=== PATIENT | male | born 1975 | race Two or more races ===

== ENCOUNTER 2021-05-05 14:13 | Inpatient (IN) | payer MEDICAID, OTHER ==
[2021-05-05] VITALS (7 sets, daily range): BP systolic 100–119; BP diastolic 39–49
[~2021-05-05] VITALS: Ht 172.7 cm; Wt 93.5 kg
[2021-05-05] MEDS ORDERED: SODIUM CHLORIDE 0.9% 1,000 ML IVB ONE (15:00)
[2021-05-05] MEDS ORDERED: LORazepam 2MG/ML-1ML VIAL ONE (15:18)
[2021-05-05 15:20] LABS: Hematocrit 18.1 % (41.0-53.0); Mean Corpuscular Hemoglobin 20.2 pg (28.0-32.0); Mean Corpuscular Hgb Conc. 26.7 g/dL (32.0-36.0); Mean Corpuscular Volume 75.7 fL (80.0-100.0); Red Blood Cells 2.39 10^6/uL (4.5-5.90); Red Cell Distribution Width 18.3 % (11.8-14.3); White Blood Cell 28.3 10^3/uL (4.4-10.8)
[2021-05-05 15:27] LABS: Potassium 4.3 mmol/L (3.5-5.1)
[2021-05-05] MEDS ORDERED: LORazepam 2MG/ML-1ML VIAL IV ONE (15:30)
[2021-05-05 15:35] LABS: Albumin 1.8 g/dL (3.4-5.0); BUN/Creatinine Ratio 29.6; Bilirubin, Total 0.2 mg/dL (0.2-1.0); Calcium 7.4 mg/dL (8.5-10.1); Magnesium 2.4 mg/dL (1.6-2.6)
[2021-05-05 15:36] LABS: Hemoglobin 4.8 g/dL (13.5-17.5)
[2021-05-05 15:38] LABS: Basophils % (manual) 0 (0.0-2.0); Blast Cells 0; Eosinophils % (manual) 0 (0-7); Metamyelocytes % 0; Myelocytes % 0; Promyelocytes % 0; Reactive Lymphocytes 0
[2021-05-05 15:44] LABS: INR 1.13 (0.9-1.15); Partial Thromboplastin Time 20.5 sec (23.6-33.0)
[2021-05-05] MEDS ORDERED: ETOMIDATE (2MG/ML) 20ML VIAL IV ONE ×2 (15:56→16:15)
[2021-05-05] MEDS ORDERED: SUCCINYLCHOLINE CHLORIDE 20 MG/ML 10ML VIAL IV ONE ×2 (15:57→16:15)
[2021-05-05] MEDS ORDERED: MIDAZOLAM DRIP 50 mg/50mL 50 ML IV ONE (16:10)
[2021-05-05] MEDS ORDERED: PANTOPRAZOLE 40 MG/10 ML VIAL INJ IV ONE (16:15)
[2021-05-05] MEDS ORDERED: OCTREOTIDE ACETATE 100 MCG in SODIUM CHL 0.9% 50 ML IV ONE (16:15)
[2021-05-05] MEDS: MIDAZOLAM DRIP 50 mg/50mL 50 ML IV SCH (16:25)
[2021-05-05] MEDS: PANTOPRAZOLE 40 MG/10 ML VIAL INJ IV SCH ×2 (16:26→21:40)
[2021-05-05] MEDS ORDERED: fentaNYL Drip 2500mCg/250mlNS 250 ML IV ONE (16:32)
[2021-05-05 16:47] LABS: Band Neutrophils % (manual) 7; Lymphocytes % (manual) 23 (10.0-50.0); Monocytes % (manual) 5 (0-12)
[2021-05-05] MEDS: fentaNYL Drip 2500mCg/250mlNS 250 ML IV SCH (16:47)
[2021-05-05] MEDS ORDERED: NOREPINEPHRINE 8 MG/250ML KIT 250 ML IV ONE (17:43)
[2021-05-05] MEDS: NOREPINEPHRINE 8 MG/250ML KIT 250 ML IV SCH (17:45)
[2021-05-05] MEDS ORDERED: NOREPINEPHRINE 8 MG/250ML KIT 250 ML IV SCH (18:00)
[2021-05-05] MEDS ORDERED: DEXTROSE (50%) 50ML SYRG IV PRN (19:45)
[2021-05-05] MEDS ORDERED: MORPHINE SULFATE INJECTION 2 MG/ML SYRG IV PRN (19:45)
[2021-05-05] MEDS ORDERED: NITROGLYCERIN 0.4 MG SL TAB SL PRN (19:45)
[2021-05-05] MEDS ORDERED: D5W/SOD CHLO 0.9% 1,000 ML IV SCH (20:00)
[2021-05-05] MEDS ORDERED: VANCOMYCIN PER PHARMACY 0 MG IV SCH (20:30)
[2021-05-05] MEDS: ACCU-CHEK COMFORT CURVE STRIP VI SCH (20:34)
[2021-05-05] MEDS: InsuLIN REG 1unit/0.01ml Soln (100units/ml) SC SCH (20:34)
[2021-05-05] MEDS ORDERED: VANCOMYCIN 1GM/250ML 250 ML IV ONE (21:00)
[2021-05-05] MEDS: SODIUM BICARB 50ML SYR 150 ML in D5W 5% 1,000 ML IV SCH (21:28)
[2021-05-05] MEDS: PIPERACILLIN-TAZOB 3.375GM 100 ML IV SCH (21:41)
[2021-05-06] VITALS (10 sets, daily range): BP systolic 90–127; BP diastolic 33–56
[2021-05-06] MEDS ORDERED: PIPERACILLIN-TAZOB 3.375GM 100 ML IV SCH
[2021-05-06 02:24] LABS: Amphetamine Screen, Urine POSITIVE (NEGATIVE); Barbiturate Scree,Urine NEGATIVE (NEGATIVE); Benzodiazephine Screen, Urine POSITIVE (NEGATIVE); Cocaine Screen, Urine NEGATIVE (NEGATIVE); Phencyclidine Screen, Urine NEGATIVE (NEGATIVE)
[2021-05-06 02:28] LABS: Urine Bacteria MANY /hpf (None Seen); Urine Blood 3+ /uL (Negative); Urine Hyaline Cast MOD /lpf (0 - 2); Urine Specific Gravity 1.012 (1.001-1.035); Urine Sperm PRESENT /hpf (None Seen); Urine WBC 10 /hpf (0 - 3)
[2021-05-06 02:32] LABS: Cannabinoid Screen, Urine NEGATIVE (NEGATIVE); Opiate Scree,Urine NEGATIVE (NEGATIVE)
[2021-05-06] MEDS: InsuLIN REG 1unit/0.01ml Soln (100units/ml) SC SCH ×6 (04:00→20:00)
[2021-05-06] MEDS: SODIUM BICARB 50ML SYR 150 ML in D5W 5% 1,000 ML IV SCH ×3 (04:16→20:06)
[2021-05-06] MEDS: PIPERACILLIN-TAZOB 3.375GM 100 ML IV SCH ×4 (04:24→22:32)
[2021-05-06] MEDS: ACCU-CHEK COMFORT CURVE STRIP VI SCH ×6 (04:28→20:15)
[2021-05-06 05:59] LABS: Alcohol, Urine < 3.0 mg/dL (0-10); Amphetamine Screen, Urine POSITIVE (NEGATIVE); Barbiturate Scree,Urine NEGATIVE (NEGATIVE); Benzodiazephine Screen, Urine POSITIVE (NEGATIVE); Cannabinoid Screen, Urine NEGATIVE (NEGATIVE); Cocaine Screen, Urine NEGATIVE (NEGATIVE); Opiate Scree,Urine NEGATIVE (NEGATIVE); Phencyclidine Screen, Urine NEGATIVE (NEGATIVE)
[2021-05-06] MEDS ORDERED: LIDOCAINE VISCOUS 2% 15ML UD ONE (08:47)
[2021-05-06] MEDS ORDERED: MIDAZOLAM HCL 5 MG/ML-1ML VIAL ONE (08:47)
[2021-05-06] MEDS ORDERED: diphenhdrAMINE HCL 50 MG/1 ML VL ONE (08:47)
[2021-05-06] MEDS ORDERED: fentaNYL CITRATE 100 MCG/2 ML VL ONE (08:48)
[2021-05-06] MEDS: MIDAZOLAM DRIP 50 mg/50mL 50 ML IV SCH ×3 (09:22→16:11)
[2021-05-06] MEDS: NOREPINEPHRINE 8 MG/250ML KIT 250 ML IV SCH (09:31)
[2021-05-06 10:00] LABS: Basophils # (auto) 0 10 ^3/uL (0-0.2); Basophils % (auto) 0.3 % (0.0-2.0); Eosinophils # (auto) 0.1 10 ^3/uL (0-0.8); Eosinophils % (auto) 0.9 % (0.0-7.0); Hematocrit 25.1 % (41.0-53.0); Lymphocytes % (auto) 12.1 % (10.0-50.0); Mean Corpuscular Hemoglobin 24.2 pg (28.0-32.0); Mean Corpuscular Hgb Conc. 31.9 g/dL (32.0-36.0); Monocytes # (auto) 0.6 10 ^3/uL (0-1.3); Monocytes % (auto) 7.9 % (0.0-12.0); Neutrophils # (auto) 6.2 10 ^3/uL (1.6-8.6); Neutrophils % (auto) 78.8 % (37.0-80.0); Nucleated Red Blood Cells % 0.2 %; Red Blood Cells 3.32 10^6/uL (4.5-5.90); Red Cell Distribution Width 21.5 % (11.8-14.3); White Blood Cell 7.9 10^3/uL (4.4-10.8)
[2021-05-06 10:03] LABS: Mean Corpuscular Volume 75.7 fL (80.0-100.0)
[2021-05-06] MEDS ORDERED: OMEP-260 PO (10:08)
[2021-05-06 10:25] LABS: INR 1.22 (0.9-1.15); Partial Thromboplastin Time 30.3 sec (23.6-33.0)
[2021-05-06] MEDS ORDERED: GOLYTELY 4L KIT PO ONE (11:00)
[2021-05-06] MEDS ORDERED: LIDOCAINE 1% (LOCAL ANESTH.) PF 5ml SDV ID ONE (11:15)
[2021-05-06] MEDS: PANTOPRAZOLE 40 MG/10 ML VIAL INJ IV SCH ×2 (11:22→22:31)
[2021-05-06] MEDS: NOREPINEPHRINE BITARTRATE 16 MG in SODIUM CHL 0.9% 234 ML IV SCH (13:43)
[2021-05-06] MEDS: fentaNYL Drip 2500mCg/250mlNS 250 ML IV SCH (16:14)
[2021-05-06 20:29] LABS: Calcium 6.1 mg/dL (8.5-10.1)
[2021-05-06 20:30] LABS: Alkaline Phosphatase 59 U/L (45-117); BUN/Creatinine Ratio 17.5; GFR African American 14 mL/min; GFR Non-African American 12 mL/min; Glucose 112 mg/dL (74-106)
[2021-05-06 20:31] LABS: Alanine Aminotransferase 197 U/L (16-61); Albumin 1.3 g/dL (3.4-5.0); Aspartate Aminotransferase 223 U/L (15-37); Bilirubin, Total 0.7 mg/dL (0.2-1.0); Total Protein 3.4 g/dL (6.4-8.2)
[2021-05-06 20:32] LABS: Anion Gap 12 (5-15); Carbon Dioxide 24 mmol/L (21-32); Chloride 102 mmol/L (98-107); Potassium 3.8 mmol/L (3.5-5.1); Sodium 138 mmol/L (136-145)
[2021-05-06 20:36] LABS: Blood Urea Nitrogen 99 mg/dL (7-18)
[2021-05-06] MEDS: SODIUM CHLOR 0.9% PF (SALINE LOCK) 10ML VIAL/SYR IV SCH (22:32)
[2021-05-07] VITALS (55 sets, daily range): BP systolic 100–155; BP diastolic 48–81
[2021-05-07] MEDS: ACCU-CHEK COMFORT CURVE STRIP VI SCH ×6 (00:34→20:00)
[2021-05-07] MEDS: InsuLIN REG 1unit/0.01ml Soln (100units/ml) SC SCH ×6 (00:34→20:00)
[2021-05-07] MEDS: SODIUM BICARB 50ML SYR 150 ML in D5W 5% 1,000 ML IV SCH (03:16)
[2021-05-07] MEDS: PIPERACILLIN-TAZOB 3.375GM 100 ML IV SCH (04:00)
[2021-05-07 05:18] LABS: Protein, Urine 48.2 mg/dL (0.0-11.9)
[2021-05-07 05:26] LABS: Creatinine, Urine 31 mg/dL (30.0-125.0); Sodium Urine 54 mmol/L (40-220)
[2021-05-07 06:00] LABS: Urine Amorphous Crystal FEW /hpf (None Seen); Urine Bacteria FEW /hpf (None Seen); Urine Blood 2+ /uL (Negative); Urine Hyaline Cast FEW /lpf (0 - 2); Urine Specific Gravity 1.009 (1.001-1.035); Urine Sperm PRESENT /hpf (None Seen); Urine WBC 15 /hpf (0 - 3)
[2021-05-07 07:07] LABS: Basophils # (auto) 0 10 ^3/uL (0-0.2); Basophils % (auto) 0.6 % (0.0-2.0); Eosinophils # (auto) 0.3 10 ^3/uL (0-0.8); Eosinophils % (auto) 3.7 % (0.0-7.0); Hematocrit 18.4 % (41.0-53.0); Hemoglobin 6.3 g/dL (13.5-17.5); Lymphocytes # (auto) 0.8 10 ^3/uL (0.4-5.4); Mean Corpuscular Hemoglobin 24.5 pg (28.0-32.0); Mean Corpuscular Hgb Conc. 33.9 g/dL (32.0-36.0); Mean Corpuscular Volume 72.2 fL (80.0-100.0); Monocytes # (auto) 0.6 10 ^3/uL (0-1.3); Monocytes % (auto) 8.1 % (0.0-12.0); Neutrophils # (auto) 5.3 10 ^3/uL (1.6-8.6); Neutrophils % (auto) 75.6 % (37.0-80.0); Red Blood Cells 2.55 10^6/uL (4.5-5.90); Red Cell Distribution Width 21.9 % (11.8-14.3); White Blood Cell 7.1 10^3/uL (4.4-10.8)
[2021-05-07 07:14] LABS: Albumin 1.1 g/dL (3.4-5.0); BUN/Creatinine Ratio 15.1; Bilirubin, Total 0.5 mg/dL (0.2-1.0); Total Protein 3.5 g/dL (6.4-8.2)
[2021-05-07 07:36] LABS: Calcium 5.9 mg/dL (8.5-10.1); Potassium 2.9 mmol/L (3.5-5.1)
[2021-05-07 08:35] LABS: Uric Acid 9.4 mg/dL (3.5-7.2)
[2021-05-07] MEDS ORDERED: CALCIUM GLUC 1,000mg/50ml-NS 50 ML IV ONE ×3 (08:45)
[2021-05-07] MEDS ORDERED: SODIUM CHLORIDE 0.9% 1,000 ML IV SCH (09:00)
[2021-05-07] MEDS ORDERED: SODIUM CHL 0.9% 1000 ML BAG XX ONE (09:00)
[2021-05-07] MEDS: POTASSIUM CHL 20MEQ/100ML 100 ML IV SCH ×2 (09:06→10:58)
[2021-05-07] MEDS: CALCIUM ACETATE 667 MG CAP NG SCH ×3 (11:05→21:22)
[2021-05-07] MEDS: PANTOPRAZOLE 40 MG/10 ML VIAL INJ IV SCH ×2 (11:05→21:21)
[2021-05-07] MEDS: D5W/SOD CHLO 0.9% 1,000 ML IV SCH ×2 (11:05→22:39)
[2021-05-07] MEDS: SODIUM CHLOR 0.9% PF (SALINE LOCK) 10ML VIAL/SYR IV SCH ×2 (11:12→21:21)
[2021-05-07 11:19] LABS: Hepatitis C Antibody Negative (Negative)
[2021-05-07] MEDS: fentaNYL Drip 2500mCg/250mlNS 250 ML IV SCH (13:27)
[2021-05-07] MEDS: NOREPINEPHRINE BITARTRATE 16 MG in SODIUM CHL 0.9% 234 ML IV SCH (15:12)
[2021-05-07 15:54] LABS: Basophils # (auto) 0 10 ^3/uL (0-0.2); Eosinophils # (auto) 0.3 10 ^3/uL (0-0.8); Monocytes # (auto) 0.4 10 ^3/uL (0-1.3)
[2021-05-07 15:55] LABS: Basophils % (auto) 0.5 % (0.0-2.0); Eosinophils % (auto) 3.6 % (0.0-7.0); Hematocrit 25.4 % (41.0-53.0); Hemoglobin 8.7 g/dL (13.5-17.5); Lymphocytes # (auto) 0.6 10 ^3/uL (0.4-5.4); Lymphocytes % (auto) 8.8 % (10.0-50.0); Mean Corpuscular Hemoglobin 25.6 pg (28.0-32.0); Mean Corpuscular Hgb Conc. 34.2 g/dL (32.0-36.0); Mean Corpuscular Volume 74.9 fL (80.0-100.0); Neutrophils % (auto) 82.1 % (37.0-80.0); Red Blood Cells 3.39 10^6/uL (4.5-5.90); White Blood Cell 7.3 10^3/uL (4.4-10.8)
[2021-05-07] MEDS: MIDAZOLAM DRIP 50 mg/50mL 50 ML IV SCH ×2 (16:15→20:00)
[2021-05-07 16:18] LABS: % Iron Saturation 7.3 % (20-55)
[2021-05-07 16:19] LABS: BUN/Creatinine Ratio 13.1; Calcium 6.7 mg/dL (8.5-10.1); Potassium 3.6 mmol/L (3.5-5.1)
[2021-05-07] MEDS: PIPERACILLIN-TAZOB 2.25GM 50 ML IV SCH (19:04)
[2021-05-07] MEDS ORDERED: EPOETIN ALFA-EPBX 10,000 UNIT/1ML VIAL SC ONE (21:00)
[2021-05-08] VITALS (95 sets, daily range): BP systolic 97–135; BP diastolic 46–72
[2021-05-08] MEDS: PIPERACILLIN-TAZOB 2.25GM 50 ML IV SCH ×5 (00:29→23:49)
[2021-05-08] MEDS: ACCU-CHEK COMFORT CURVE STRIP VI SCH ×7 (00:29→23:49)
[2021-05-08] MEDS: MIDAZOLAM DRIP 50 mg/50mL 50 ML IV SCH ×4 (01:00→21:05)
[2021-05-08] MEDS: InsuLIN REG 1unit/0.01ml Soln (100units/ml) SC SCH ×7 (04:00→23:49)
[2021-05-08] MEDS: D5W/SOD CHLO 0.9% 1,000 ML IV SCH ×2 (04:45→14:45)
[2021-05-08 04:59] LABS: Basophils # (auto) 0.1 10 ^3/uL (0-0.2); Eosinophils # (auto) 0.4 10 ^3/uL (0-0.8); Hematocrit 23.8 % (41.0-53.0); Hemoglobin 7.6 g/dL (13.5-17.5); Lymphocytes # (auto) 0.8 10 ^3/uL (0.4-5.4); Red Blood Cells 3.09 10^6/uL (4.5-5.90)
[2021-05-08 05:01] LABS: Basophils % (auto) 0.8 % (0.0-2.0); Eosinophils % (auto) 5.4 % (0.0-7.0); Mean Corpuscular Hemoglobin 24.7 pg (28.0-32.0); Mean Corpuscular Hgb Conc. 32.1 g/dL (32.0-36.0); Monocytes # (auto) 0.6 10 ^3/uL (0-1.3); Monocytes % (auto) 8.1 % (0.0-12.0); Neutrophils # (auto) 5.3 10 ^3/uL (1.6-8.6); Neutrophils % (auto) 74.7 % (37.0-80.0); White Blood Cell 7.1 10^3/uL (4.4-10.8)
[2021-05-08 05:03] LABS: Red Cell Distribution Width 21.6 % (11.8-14.3)
[2021-05-08 05:13] LABS: Albumin 1.2 g/dL (3.4-5.0); BUN/Creatinine Ratio 10.3; Calcium 6.6 mg/dL (8.5-10.1); Potassium 3.6 mmol/L (3.5-5.1)
[2021-05-08 05:16] LABS: Bilirubin, Total 0.4 mg/dL (0.2-1.0); Total Protein 4.2 g/dL (6.4-8.2)
[2021-05-08] MEDS ORDERED: CALC500C3 PO (05:58)
[2021-05-08] MEDS: CALCIUM ACETATE 667 MG CAP NG SCH ×3 (06:00→22:12)
[2021-05-08] MEDS: fentaNYL Drip 2500mCg/250mlNS 250 ML IV SCH (06:31)
[2021-05-08] MEDS: PANTOPRAZOLE 40 MG/10 ML VIAL INJ IV SCH ×2 (10:08→21:53)
[2021-05-08] MEDS: SODIUM CHLOR 0.9% PF (SALINE LOCK) 10ML VIAL/SYR IV SCH ×2 (10:08→21:53)
[2021-05-08] MEDS: ALBUMIN 25% 100 ML IV SCH ×2 (12:12→19:57)
[2021-05-08] MEDS: NOREPINEPHRINE BITARTRATE 16 MG in SODIUM CHL 0.9% 234 ML IV SCH (12:45)
[2021-05-09] VITALS (99 sets, daily range): BP systolic 97–159; BP diastolic 48–82
[2021-05-09] MEDS: D5W/SOD CHLO 0.9% 1,000 ML IV SCH ×3 (01:01→21:21)
[2021-05-09] MEDS: ALBUMIN 25% 100 ML IV SCH (02:53)
[2021-05-09] MEDS: InsuLIN REG 1unit/0.01ml Soln (100units/ml) SC SCH ×5 (04:00→20:00)
[2021-05-09] MEDS: ACCU-CHEK COMFORT CURVE STRIP VI SCH ×5 (04:13→21:21)
[2021-05-09 04:39] LABS: Basophils # (auto) 0 10 ^3/uL (0-0.2); Lymphocytes # (auto) 0.6 10 ^3/uL (0.4-5.4); Lymphocytes % (auto) 10.8 % (10.0-50.0); Mean Corpuscular Hgb Conc. 32.1 g/dL (32.0-36.0); Monocytes # (auto) 0.5 10 ^3/uL (0-1.3); White Blood Cell 5.5 10^3/uL (4.4-10.8)
[2021-05-09 04:42] LABS: Basophils % (auto) 0.4 % (0.0-2.0); Eosinophils # (auto) 0.2 10 ^3/uL (0-0.8); Eosinophils % (auto) 4.4 % (0.0-7.0); Hematocrit 20.1 % (41.0-53.0); Mean Corpuscular Hemoglobin 24.6 pg (28.0-32.0); Mean Corpuscular Volume 76.7 fL (80.0-100.0); Monocytes % (auto) 8.8 % (0.0-12.0); Neutrophils # (auto) 4.2 10 ^3/uL (1.6-8.6); Neutrophils % (auto) 75.6 % (37.0-80.0); Red Blood Cells 2.63 10^6/uL (4.5-5.90)
[2021-05-09 04:59] LABS: Red Cell Distribution Width 21.1 % (11.8-14.3)
[2021-05-09 05:00] LABS: Hemoglobin 6.5 g/dL (13.5-17.5)
[2021-05-09] MEDS: fentaNYL Drip 2500mCg/250mlNS 250 ML IV SCH (05:01)
[2021-05-09 05:21] LABS: Potassium 3.5 mmol/L (3.5-5.1)
[2021-05-09 05:27] LABS: BUN/Creatinine Ratio 8.9; Calcium 7.1 mg/dL (8.5-10.1); Magnesium 2.1 mg/dL (1.6-2.6)
[2021-05-09] MEDS: PIPERACILLIN-TAZOB 2.25GM 50 ML IV SCH ×3 (05:37→18:13)
[2021-05-09] MEDS: CALCIUM ACETATE 667 MG CAP NG SCH ×3 (05:55→22:14)
[2021-05-09] MEDS: SODIUM CHLOR 0.9% PF (SALINE LOCK) 10ML VIAL/SYR IV SCH ×2 (07:57→22:02)
[2021-05-09] MEDS: PANTOPRAZOLE 40 MG/10 ML VIAL INJ IV SCH ×2 (09:34→22:02)
[2021-05-09] MEDS: NOREPINEPHRINE BITARTRATE 16 MG in SODIUM CHL 0.9% 234 ML IV SCH (11:17)
[2021-05-09] MEDS ORDERED: FUROSEMIDE 40 MG/4 ML VIAL IV ONE (20:00)
[2021-05-09 22:27] LABS: Hemoglobin 8.8 g/dL (13.5-17.5)
[2021-05-09 22:28] LABS: Basophils # (auto) 0 10 ^3/uL (0-0.2); Basophils % (auto) 0.5 % (0.0-2.0); Eosinophils # (auto) 0.2 10 ^3/uL (0-0.8); Eosinophils % (auto) 3.6 % (0.0-7.0); Hematocrit 27.5 % (41.0-53.0); Lymphocytes # (auto) 0.7 10 ^3/uL (0.4-5.4); Lymphocytes % (auto) 10.7 % (10.0-50.0); Mean Corpuscular Hemoglobin 25.1 pg (28.0-32.0); Mean Corpuscular Hgb Conc. 31.9 g/dL (32.0-36.0); Mean Corpuscular Volume 78.5 fL (80.0-100.0); Monocytes # (auto) 0.7 10 ^3/uL (0-1.3); Monocytes % (auto) 10.7 % (0.0-12.0); Neutrophils # (auto) 4.6 10 ^3/uL (1.6-8.6); Neutrophils % (auto) 74.5 % (37.0-80.0); Red Blood Cells 3.51 10^6/uL (4.5-5.90); White Blood Cell 6.2 10^3/uL (4.4-10.8)
[2021-05-09 22:32] LABS: Red Cell Distribution Width 20.5 % (11.8-14.3)
[2021-05-10] VITALS (98 sets, daily range): BP systolic 85–165; BP diastolic 44–88
[2021-05-10] MEDS: ACCU-CHEK COMFORT CURVE STRIP VI SCH ×5 (00:42→16:00)
[2021-05-10] MEDS: PIPERACILLIN-TAZOB 2.25GM 50 ML IV SCH ×4 (00:42→17:07)
[2021-05-10] MEDS: InsuLIN REG 1unit/0.01ml Soln (100units/ml) SC SCH ×5 (04:00→16:00)
[2021-05-10 04:52] LABS: Basophils # (auto) 0 10 ^3/uL (0-0.2); Eosinophils # (auto) 0.2 10 ^3/uL (0-0.8); Lymphocytes # (auto) 0.8 10 ^3/uL (0.4-5.4); Mean Corpuscular Volume 78.6 fL (80.0-100.0); Monocytes # (auto) 0.7 10 ^3/uL (0-1.3)
[2021-05-10 04:54] LABS: Basophils % (auto) 0.5 % (0.0-2.0); Eosinophils % (auto) 3.4 % (0.0-7.0); Hematocrit 26.7 % (41.0-53.0); Hemoglobin 8.8 g/dL (13.5-17.5); Lymphocytes % (auto) 12.2 % (10.0-50.0); Mean Corpuscular Hemoglobin 25.9 pg (28.0-32.0); Mean Corpuscular Hgb Conc. 32.9 g/dL (32.0-36.0); Monocytes % (auto) 10.7 % (0.0-12.0); Neutrophils # (auto) 4.7 10 ^3/uL (1.6-8.6); Neutrophils % (auto) 73.2 % (37.0-80.0); Red Blood Cells 3.39 10^6/uL (4.5-5.90); White Blood Cell 6.4 10^3/uL (4.4-10.8)
[2021-05-10 05:00] LABS: Red Cell Distribution Width 20.1 % (11.8-14.3)
[2021-05-10 05:08] LABS: Calcium 7.5 mg/dL (8.5-10.1); Potassium 3.5 mmol/L (3.5-5.1)
[2021-05-10 05:16] LABS: BUN/Creatinine Ratio 7.8
[2021-05-10] MEDS: CALCIUM ACETATE 667 MG CAP NG SCH ×3 (06:07→23:33)
[2021-05-10] MEDS: D5W/SOD CHLO 0.9% 1,000 ML IV SCH ×2 (06:45→17:04)
[2021-05-10] MEDS: PANTOPRAZOLE 40 MG/10 ML VIAL INJ IV SCH ×2 (08:11→21:34)
[2021-05-10] MEDS: SODIUM CHLOR 0.9% PF (SALINE LOCK) 10ML VIAL/SYR IV SCH ×2 (08:11→21:36)
[2021-05-10] MEDS: NOREPINEPHRINE BITARTRATE 16 MG in SODIUM CHL 0.9% 234 ML IV SCH (08:11)
[2021-05-10] MEDS ORDERED: ALBUMIN 25% 100 ML IV ONE (10:30)
[2021-05-10] MEDS: fentaNYL Drip 2500mCg/250mlNS 250 ML IV SCH ×2 (15:00→16:32)
[2021-05-10] MEDS: MIDAZOLAM DRIP 50 mg/50mL 50 ML IV SCH (15:00)
[2021-05-10] MEDS: PROPOFOL 100 ML IV SCH ×2 (16:27→20:02)
[2021-05-10] MEDS ORDERED: EPOETIN ALFA-EPBX 10,000 UNIT/1ML VIAL SC ONE (21:00)
[2021-05-11] VITALS (86 sets, daily range): BP systolic 90–174; BP diastolic 46–94
[2021-05-11] MEDS: PIPERACILLIN-TAZOB 2.25GM 50 ML IV SCH ×3 (00:46→17:14)
[2021-05-11] MEDS: PROPOFOL 100 ML IV SCH ×2 (03:21→08:46)
[2021-05-11 05:28] LABS: Eosinophils # (auto) 0.3 10 ^3/uL (0-0.8); Hemoglobin 8.7 g/dL (13.5-17.5); Mean Corpuscular Hgb Conc. 33.1 g/dL (32.0-36.0); Monocytes # (auto) 0.7 10 ^3/uL (0-1.3); Neutrophils # (auto) 4.5 10 ^3/uL (1.6-8.6)
[2021-05-11 05:29] LABS: Basophils # (auto) 0 10 ^3/uL (0-0.2); Basophils % (auto) 0.6 % (0.0-2.0); Eosinophils % (auto) 4.8 % (0.0-7.0); Hematocrit 26.3 % (41.0-53.0); Lymphocytes # (auto) 0.9 10 ^3/uL (0.4-5.4); Lymphocytes % (auto) 13.7 % (10.0-50.0); Mean Corpuscular Hemoglobin 25.8 pg (28.0-32.0); Mean Corpuscular Volume 78.1 fL (80.0-100.0); Monocytes % (auto) 11.6 % (0.0-12.0); Neutrophils % (auto) 69.3 % (37.0-80.0); Nucleated Red Blood Cells % 0.1 %; Red Blood Cells 3.37 10^6/uL (4.5-5.90); White Blood Cell 6.4 10^3/uL (4.4-10.8)
[2021-05-11 05:42] LABS: INR 1.03 (0.9-1.15); Partial Thromboplastin Time 25.6 sec (23.6-33.0)
[2021-05-11 05:45] LABS: BUN/Creatinine Ratio 6.1; Calcium 7.7 mg/dL (8.5-10.1); Potassium 3.5 mmol/L (3.5-5.1)
[2021-05-11] MEDS: CALCIUM ACETATE 667 MG CAP NG SCH ×3 (05:54→22:00)
[2021-05-11 06:11] LABS: Red Cell Distribution Width 20.4 % (11.8-14.3)
[2021-05-11] MEDS: D5W/SOD CHLO 0.9% 1,000 ML IV SCH ×2 (06:58→12:45)
[2021-05-11] MEDS: NOREPINEPHRINE BITARTRATE 16 MG in SODIUM CHL 0.9% 234 ML IV SCH (08:44)
[2021-05-11] MEDS: PANTOPRAZOLE 40 MG/10 ML VIAL INJ IV SCH ×2 (09:53→22:08)
[2021-05-11] MEDS: SODIUM CHLOR 0.9% PF (SALINE LOCK) 10ML VIAL/SYR IV SCH ×2 (09:54→22:09)
[2021-05-11] MEDS: fentaNYL Drip 2500mCg/250mlNS 250 ML IV SCH (12:31)
[2021-05-11] MEDS ORDERED: FUROSEMIDE 20 MG/2 ML VIAL ONE (14:58)
[2021-05-11] MEDS ORDERED: FUROSEMIDE 100 MG/10ML VIAL IV ONE ×2 (15:00→19:30)
[2021-05-11] MEDS: POTASSIUM CHL 20MEQ/100ML 100 ML IV SCH ×2 (15:24→19:42)
[2021-05-12] VITALS (24 sets, daily range): BP systolic 108–138; BP diastolic 72–96
[2021-05-12] MEDS: D5W/SOD CHLO 0.9% 1,000 ML IV SCH ×2 (00:01→12:06)
[2021-05-12] MEDS: PIPERACILLIN-TAZOB 2.25GM 50 ML IV SCH ×3 (00:02→17:00)
[2021-05-12] MEDS: CALCIUM ACETATE 667 MG CAP NG SCH (05:08)
[2021-05-12 06:08] LABS: Potassium 3.3 mmol/L (3.5-5.1)
[2021-05-12] MEDS ORDERED: SODIUM CHL 0.9% 1000 ML BAG XX ONE (07:00)
[2021-05-12 09:25] LABS: Hematocrit 33.3 % (41.0-53.0); Hemoglobin 10.6 g/dL (13.5-17.5)
[2021-05-12] MEDS: PANTOPRAZOLE 40 MG/10 ML VIAL INJ IV SCH ×2 (10:00→21:14)
[2021-05-12] MEDS: SODIUM CHLOR 0.9% PF (SALINE LOCK) 10ML VIAL/SYR IV SCH ×2 (10:00→21:13)
[2021-05-12] MEDS: POTASSIUM CHL 20MEQ/100ML 100 ML IV SCH ×3 (10:30→14:30)
[2021-05-12] MEDS ORDERED: FUROSEMIDE 100 MG/10ML VIAL IV ONE (11:00)
[2021-05-12] MEDS: SUCRALFATE 1 GM/10 ML ORAL SUSP PO SCH ×3 (11:30→21:13)
[2021-05-12] MEDS: CALCIUM ACETATE 667 MG CAP PO SCH ×2 (12:00→18:00)
[2021-05-12] MEDS: NOREPINEPHRINE BITARTRATE 16 MG in SODIUM CHL 0.9% 234 ML IV SCH (12:45)
[2021-05-12] MEDS: PROPOFOL 100 ML IV SCH (16:15)
[2021-05-12] MEDS: fentaNYL Drip 2500mCg/250mlNS 250 ML IV SCH (16:30)
[2021-05-12] MEDS ORDERED: EPOETIN ALFA-EPBX 10,000 UNIT/1ML VIAL SC ONE (21:00)
[2021-05-13] MEDS: PIPERACILLIN-TAZOB 2.25GM 50 ML IV SCH ×3 (00:30→18:45)
[2021-05-13] MEDS: D5W/SOD CHLO 0.9% 1,000 ML IV SCH ×2 (03:10→19:50)
[2021-05-13 05:03] VITALS: BP 155/89
[2021-05-13] MEDS: SUCRALFATE 1 GM/10 ML ORAL SUSP PO SCH ×4 (06:26→22:05)
[2021-05-13 07:11] LABS: Basophils # (auto) 0.1 10 ^3/uL (0-0.2); Basophils % (auto) 0.7 % (0.0-2.0); Eosinophils # (auto) 0.4 10 ^3/uL (0-0.8); Eosinophils % (auto) 4.7 % (0.0-7.0); Hemoglobin 10.6 g/dL (13.5-17.5); Lymphocytes # (auto) 1.3 10 ^3/uL (0.4-5.4); Mean Corpuscular Hgb Conc. 32.1 g/dL (32.0-36.0); Mean Corpuscular Volume 77.9 fL (80.0-100.0); Monocytes # (auto) 0.6 10 ^3/uL (0-1.3); Monocytes % (auto) 6.9 % (0.0-12.0); Neutrophils # (auto) 6.3 10 ^3/uL (1.6-8.6); Neutrophils % (auto) 72.7 % (37.0-80.0); Red Blood Cells 4.23 10^6/uL (4.5-5.90); Red Cell Distribution Width 20.2 % (11.8-14.3); White Blood Cell 8.7 10^3/uL (4.4-10.8)
[2021-05-13 07:33] LABS: Potassium 3.5 mmol/L (3.5-5.1)
[2021-05-13 07:37] LABS: Albumin 2.2 g/dL (3.4-5.0); BUN/Creatinine Ratio 6.8; Bilirubin, Total 0.3 mg/dL (0.2-1.0); Calcium 7.8 mg/dL (8.5-10.1); Phosphorus 4.1 mg/dL (2.5-4.90); Total Protein 5.4 g/dL (6.4-8.2); Uric Acid 5.8 mg/dL (3.5-7.2)
[2021-05-13 08:45] VITALS: BP 121/77
[2021-05-13] MEDS: CALCIUM ACETATE 667 MG CAP PO SCH ×3 (09:08→18:45)
[2021-05-13] MEDS: PANTOPRAZOLE 40 MG/10 ML VIAL INJ IV SCH ×2 (09:08→22:05)
[2021-05-13] MEDS: SODIUM CHLOR 0.9% PF (SALINE LOCK) 10ML VIAL/SYR IV SCH ×2 (09:14→22:48)
[2021-05-13] MEDS: POTASSIUM CHL 20MEQ/100ML 100 ML IV SCH ×2 (12:03→15:10)
[2021-05-13 12:16] LABS: Potassium 3.6 mmol/L (3.5-5.1)
[2021-05-13 12:29] LABS: BUN/Creatinine Ratio 6.8; Calcium 7.8 mg/dL (8.5-10.1)
[2021-05-13 13:28] VITALS: BP 123/76
[2021-05-13 17:25] VITALS: BP 134/95
[2021-05-13 22:00] VITALS: BP 119/84
[2021-05-14] MEDS: PIPERACILLIN-TAZOB 2.25GM 50 ML IV SCH ×2 (01:34→08:47)
[2021-05-14 05:00] VITALS: BP 117/71
[2021-05-14 05:36] LABS: Basophils # (auto) 0.1 10 ^3/uL (0-0.2); Hemoglobin 10.3 g/dL (13.5-17.5); Monocytes # (auto) 0.7 10 ^3/uL (0-1.3)
[2021-05-14 05:38] LABS: Basophils % (auto) 1.1 % (0.0-2.0); Eosinophils # (auto) 0.4 10 ^3/uL (0-0.8); Eosinophils % (auto) 4.5 % (0.0-7.0); Hematocrit 31.7 % (41.0-53.0); Lymphocytes # (auto) 1.5 10 ^3/uL (0.4-5.4); Mean Corpuscular Hemoglobin 25.2 pg (28.0-32.0); Mean Corpuscular Hgb Conc. 32.6 g/dL (32.0-36.0); Mean Corpuscular Volume 77.4 fL (80.0-100.0); Monocytes % (auto) 8.6 % (0.0-12.0); Neutrophils # (auto) 5.7 10 ^3/uL (1.6-8.6); Neutrophils % (auto) 67.8 % (37.0-80.0); Nucleated Red Blood Cells % 0.1 %; Red Blood Cells 4.09 10^6/uL (4.5-5.90); White Blood Cell 8.4 10^3/uL (4.4-10.8)
[2021-05-14 05:58] LABS: Calcium 7.9 mg/dL (8.5-10.1); Potassium 3.8 mmol/L (3.5-5.1)
[2021-05-14 06:00] LABS: BUN/Creatinine Ratio 7.5
[2021-05-14] MEDS: SUCRALFATE 1 GM/10 ML ORAL SUSP PO SCH ×2 (06:32→11:25)
[2021-05-14] MEDS: D5W/SOD CHLO 0.9% 1,000 ML IV SCH (06:57)
[2021-05-14 08:30] VITALS: BP 122/71
[2021-05-14] MEDS: CALCIUM ACETATE 667 MG CAP PO SCH ×2 (08:45→11:25)
[2021-05-14] MEDS: PANTOPRAZOLE 40 MG/10 ML VIAL INJ IV SCH (08:47)
[2021-05-14] MEDS: SODIUM CHLOR 0.9% PF (SALINE LOCK) 10ML VIAL/SYR IV SCH (08:48)
[2021-05-14 13:14] VITALS: BP 163/100
[2021-05-14] MEDS ORDERED: SUCR1SUS10 PO (16:19)
[2021-05-14] MEDS ORDERED: AMOX500T86 PO (16:19)
[2021-05-14] MEDS ORDERED: PANT40TA2 PO (16:19)
== END 2021-05-14 17:40 | disposition home health service (06) | DRG 720 ==
LOC: EDBD 14:13 → ER 14:13 → TELE 19:41 → ICU WEST 05-07 12:40 → TELE-CENTR 05-12 20:38
PROVIDERS: ADMIT Hospitalist; ATTEND Hospitalist
PROC: 5A1955Z Respiratory Ventilation, Greater than 96 Consecutive Hours (ICD-10-PCS; principal; 2021-05-05)
PROC: 0BH17EZ Insertion of Endotracheal Airway into Trachea, Via Natural or Artificial Opening (ICD-10-PCS; 2021-05-05)
PROC: 30233N1 Transfusion of Nonautologous Red Blood Cells into Peripheral Vein, Percutaneous Approach (ICD-10-PCS; 2021-05-05)
PROC: 0D9670Z Drainage of Stomach with Drainage Device, Via Natural or Artificial Opening (ICD-10-PCS; 2021-05-06)
PROC: 0DJ08ZZ Inspection of Upper Intestinal Tract, Via Natural or Artificial Opening Endoscopic (ICD-10-PCS; 2021-05-06)
PROC: 02HV33Z Insertion of Infusion Device into Superior Vena Cava, Percutaneous Approach (ICD-10-PCS; 2021-05-07)
PROC: B548ZZA Ultrasonography of Superior Vena Cava, Guidance (ICD-10-PCS; 2021-05-07)
PROC: 5A1D70Z Performance of Urinary Filtration, Intermittent, Less than 6 Hours Per Day (ICD-10-PCS; 2021-05-07)
PROC: 5A1D70Z Performance of Urinary Filtration, Intermittent, Less than 6 Hours Per Day (ICD-10-PCS; 2021-05-10)
PROC: 0DJ08ZZ Inspection of Upper Intestinal Tract, Via Natural or Artificial Opening Endoscopic (ICD-10-PCS; 2021-05-11)
DX: A41.9 Sepsis, unspecified organism (principal); J96.00 Acute respiratory failure, unspecified whether with hypoxia or hypercapnia; N17.0 Acute kidney failure with tubular necrosis; R65.21 Severe sepsis with septic shock; K29.71 Gastritis, unspecified, with bleeding; G93.41 Metabolic encephalopathy; D62 Acute posthemorrhagic anemia; E83.39 Other disorders of phosphorus metabolism; N39.0 Urinary tract infection, site not specified; E83.51 Hypocalcemia; E88.09 Other disorders of plasma-protein metabolism, not elsewhere classified; R73.9 Hyperglycemia, unspecified; T43.621A Poisoning by amphetamines, accidental (unintentional), initial encounter; E66.9 Obesity, unspecified; E87.6 Hypokalemia; K20.91 Esophagitis, unspecified with bleeding; F15.10 Other stimulant abuse, uncomplicated; J98.11 Atelectasis; Z68.33 Body mass index [BMI] 33.0-33.9, adult; Z91.018 Allergy to other foods; Y92.89 Other specified places as the place of occurrence of the external cause
CPT/HCPCS: 31500; 36415; 36569; 36600; 43235; 70450; 71045; 72125; 74176; 76775; 80048; 80053; 80202; 80307; 80320; 81001; 82140; 82306; 82550; 82570; 82728; 82805; 82962; 83036; 83540; 83550; 83605; 83735; 83880; 83970; 84100; 84156; 84300; 84484; 84550; 85007; 85014; 85018; 85025; 85027; 85610; 85730; 86803; 86850; 86900; 86901; 86920; 87070; 87077; 87081; 87205; 87340; 87426; 90935; 93005; 93306; 94002; 94003; 96361; 96374; 97116; 97163; 97530; 99291; C9113; G0378; J0330; J1642; J2250; J2543; J2704; J3480; J7042; J7060; P9047

== ENCOUNTER 2021-10-11 17:32 | Inpatient (IN) | payer MEDICAID ==
[~2021-10-11] VITALS: Ht 170.2 cm; Wt 87.8 kg
[~2021-10-11 17:32] MED LIST: AMOX500T86 PO; CALC500C3 PO; PANT40TA2 PO; SUCR1SUS10 PO
[2021-10-11] MEDS ORDERED: SODIUM CHLORIDE 0.9% 1,000 ML IV ONE ×2 (18:00)
[2021-10-11] MEDS ORDERED: cefTRIAXone 1GM/50ML D5W 50 ML IV ONE (18:00)
[2021-10-11 18:39] LABS: Basophils # (auto) 0.1 10 ^3/uL (0-0.2); Hematocrit 19.2 % (41.0-53.0); Lymphocytes # (auto) 1.4 10 ^3/uL (0.4-5.4); Mean Corpuscular Volume 62.7 fL (80.0-100.0); Monocytes # (auto) 0.7 10 ^3/uL (0-1.3); Nucleated Red Blood Cells % 0.2 %; Red Blood Cells 3.06 10^6/uL (4.5-5.90)
[2021-10-11 18:40] LABS: Basophils % (auto) 0.7 % (0.0-2.0); Eosinophils # (auto) 0.1 10 ^3/uL (0-0.8); Eosinophils % (auto) 0.9 % (0.0-7.0); Lymphocytes % (auto) 15.1 % (10.0-50.0); Mean Corpuscular Hemoglobin 17.9 pg (28.0-32.0); Mean Corpuscular Hgb Conc. 28.6 g/dL (32.0-36.0); Monocytes % (auto) 7.9 % (0.0-12.0); Neutrophils # (auto) 6.8 10 ^3/uL (1.6-8.6); Neutrophils % (auto) 75.4 % (37.0-80.0); Red Cell Distribution Width 18.3 % (11.8-14.3)
[2021-10-11 18:53] LABS: Albumin 2.7 g/dL (3.4-5.0); Calcium 8.1 mg/dL (8.5-10.1); Hemoglobin 5.5 g/dL (13.5-17.5); Potassium 3.2 mmol/L (3.5-5.1)
[2021-10-11 18:55] LABS: BUN/Creatinine Ratio 19.1
[2021-10-11 18:56] LABS: INR 0.99 (0.9-1.15); Lactic Acid w/Reflex 2.9 mmol/L (0.4-2.0); Partial Thromboplastin Time 21.9 sec (23.6-33.0)
[2021-10-11 18:58] LABS: Bilirubin, Total 0.3 mg/dL (0.2-1.0)
[2021-10-11] MEDS ORDERED: MORPHINE SULFATE 4 MG/ML SYR/VIAL IV ONE (21:15)
[2021-10-11] MEDS ORDERED: HYDROcodone-ACET 5/325MG TAB PO PRN (21:45)
[2021-10-11] MEDS ORDERED: ACETAMINOPHEN 325 MG TAB PO PRN (21:45)
[2021-10-11] MEDS ORDERED: POTASSIUM CHL 20MEQ/100ML 100 ML IV ONE (21:45)
[2021-10-11] MEDS ORDERED: hydrALAZINE HCL 10 MG TAB PO PRN (21:45)
[2021-10-11] MEDS ORDERED: ONDANSETRON HCL 4 MG/2 ML VIAL IV PRN (22:00)
[2021-10-11] MEDS ORDERED: MORPHINE SULFATE INJECTION 2 MG/ML SYRG IV PRN (22:00)
[2021-10-11] MEDS: FAMOTIDINE 20 MG TAB PO SCH (22:21)
[2021-10-11] MEDS ORDERED: levoFLOXacin 500MG 100 ML IV SCH (22:30)
[2021-10-12] VITALS (14 sets, daily range): BP systolic 95–132; BP diastolic 49–104
[2021-10-12] MEDS ORDERED: SUCR1TAB PO (01:44)
[2021-10-12] MEDS ORDERED: levoFLOXacin 500MG 100 ML IV SCH (03:00)
[2021-10-12 07:35] LABS: Basophils # (auto) 0.1 10 ^3/uL (0-0.2); Eosinophils # (auto) 0.1 10 ^3/uL (0-0.8); Monocytes # (auto) 0.6 10 ^3/uL (0-1.3); Neutrophils # (auto) 5.1 10 ^3/uL (1.6-8.6)
[2021-10-12 07:38] LABS: Eosinophils % (auto) 1.4 % (0.0-7.0); Hematocrit 20.7 % (41.0-53.0); Lymphocytes # (auto) 1.3 10 ^3/uL (0.4-5.4); Lymphocytes % (auto) 18.6 % (10.0-50.0); Mean Corpuscular Hemoglobin 20.8 pg (28.0-32.0); Mean Corpuscular Hgb Conc. 31.1 g/dL (32.0-36.0); Monocytes % (auto) 7.7 % (0.0-12.0); Neutrophils % (auto) 71.3 % (37.0-80.0); Nucleated Red Blood Cells % 0.2 %; Red Cell Distribution Width 22.7 % (11.8-14.3); White Blood Cell 7.2 10^3/uL (4.4-10.8)
[2021-10-12 07:42] LABS: Hemoglobin 6.5 g/dL (13.5-17.5); Mean Corpuscular Volume 66.9 fL (80.0-100.0)
[2021-10-12 07:54] LABS: Albumin 2.5 g/dL (3.4-5.0); Calcium 7.6 mg/dL (8.5-10.1); Potassium 3.7 mmol/L (3.5-5.1)
[2021-10-12 07:59] LABS: BUN/Creatinine Ratio 21.5; Bilirubin, Total 1.1 mg/dL (0.2-1.0); Total Protein 5.4 g/dL (6.4-8.2)
[2021-10-12 08:43] LABS: Hematocrit 20.6 % (41.0-53.0)
[2021-10-12 08:49] LABS: Hemoglobin 6.7 g/dL (13.5-17.5)
[2021-10-12] MEDS ORDERED: PNEUMOCOCCAL VACC POLYS 25 MCG/0.5 ML VIAL IM ONE (10:00)
[2021-10-12] MEDS ORDERED: INFLUENZA QUAD 2021-2022 0.5 ML SYRG IM ONE (10:00)
[2021-10-12] MEDS: FAMOTIDINE 20 MG TAB PO SCH (10:20)
[2021-10-12 12:16] LABS: Hematocrit 20.5 % (41.0-53.0)
[2021-10-12 12:27] LABS: Hemoglobin 6.2 g/dL (13.5-17.5)
[2021-10-12 15:54] LABS: Hemoglobin 7.2 g/dL (13.5-17.5)
[2021-10-12 18:44] LABS: Hematocrit 24.8 % (41.0-53.0)
[2021-10-12 18:48] LABS: Hemoglobin 7.7 g/dL (13.5-17.5)
== END 2021-10-12 18:20 | disposition left against medical advice (07) | DRG 241 ==
LOC: ER 17:32 → TELE 21:40 → TELE-WESTW 23:47
PROVIDERS: ADMIT Nurse Practitioner Family; ATTEND Nurse Practitioner Family
PROC: 30233N1 Transfusion of Nonautologous Red Blood Cells into Peripheral Vein, Percutaneous Approach (ICD-10-PCS; principal; 2021-10-12)
DX: K27.9 Peptic ulcer, site unspecified, unspecified as acute or chronic, without hemorrhage or perforation (principal); N17.0 Acute kidney failure with tubular necrosis; D62 Acute posthemorrhagic anemia; E87.6 Hypokalemia; J45.909 Unspecified asthma, uncomplicated; M54.50 Low back pain, unspecified; Z20.822 Contact with and (suspected) exposure to COVID-19; Z53.21 Procedure and treatment not carried out due to patient leaving prior to being seen by health care provider; N18.9 Chronic kidney disease, unspecified; Z80.0 Family history of malignant neoplasm of digestive organs; Z83.3 Family history of diabetes mellitus; Z87.11 Personal history of peptic ulcer disease; Z91.018 Allergy to other foods
CPT/HCPCS: 36415; 71045; 72131; 76775; 80053; 83036; 83605; 83880; 84484; 85014; 85018; 85025; 85610; 85730; 86850; 86900; 86901; 86920; 87040; 93005; 96361; 96365; 96367; 96375; 96376; G0378; J0696; J1956; J3480

== ENCOUNTER 2022-08-14 10:42 | Inpatient (IN) | payer MEDICAID ==
[~2022-08-14] VITALS: Ht 167.6 cm; Wt 95.0 kg
[2022-08-14] VITALS (10 sets, daily range): BP systolic 111–150; BP diastolic 55–85
[~2022-08-14 10:42] MED LIST changes: -CALC500C3 PO; +SUCR1TAB PO
[2022-08-14] MEDS ORDERED: ONDANSETRON ODT 4 MG TAB PO ONE (10:45)
[2022-08-14] MEDS ORDERED: SODIUM CHLORIDE 0.9% 1,000 ML IV ONE ×2 (11:00)
[2022-08-14 11:22] LABS: Basophils # (auto) 0.1 10 ^3/uL (0-0.2); Eosinophils # (auto) 0 10 ^3/uL (0-0.8); Eosinophils % (auto) 0.1 % (0.0-7.0); Mean Corpuscular Volume 52.1 fL (80.0-100.0); Monocytes # (auto) 0.4 10 ^3/uL (0-1.3); Nucleated Red Blood Cells % 1.4 %; White Blood Cell 7.1 10^3/uL (4.4-10.8)
[2022-08-14 11:24] LABS: Basophils % (auto) 1.4 % (0.0-2.0); Hematocrit 15.2 % (41.0-53.0); Lymphocytes # (auto) 0.7 10 ^3/uL (0.4-5.4); Lymphocytes % (auto) 10.1 % (10.0-50.0); Mean Corpuscular Hemoglobin 12.5 pg (28.0-32.0); Monocytes % (auto) 5.8 % (0.0-12.0); Neutrophils # (auto) 5.9 10 ^3/uL (1.6-8.6); Neutrophils % (auto) 82.6 % (37.0-80.0); Red Blood Cells 2.91 10^6/uL (4.5-5.90)
[2022-08-14 11:29] LABS: Albumin 3.5 g/dL (3.4-5.0); Calcium 8.6 mg/dL (8.5-10.1); Magnesium 2.2 mg/dL (1.6-2.6); Potassium 4.4 mmol/L (3.5-5.1)
[2022-08-14 11:31] LABS: Red Cell Distribution Width 23.4 % (11.8-14.3)
[2022-08-14 11:32] LABS: Hemoglobin 3.6 g/dL (13.5-17.5)
[2022-08-14 11:34] LABS: BUN/Creatinine Ratio 14.9
[2022-08-14] MEDS ORDERED: PANTOPRAZOLE 40mg/50ML NS AE 50 ML IV ONE (12:45)
[2022-08-14] MEDS ORDERED: metroNIDAZOLE 500MG/100ML 100 ML IV ONE (12:45)
[2022-08-14] MEDS ORDERED: cefTRIAXone 1GM/50ML D5W 50 ML IV ONE (12:45)
[2022-08-14] MEDS ORDERED: ONDANSETRON HCL 4 MG/2 ML VIAL IV ONE (13:00)
[2022-08-14] MEDS ORDERED: ONDANSETRON HCL 4 MG/2 ML VIAL IV PRN ×2 (13:30→19:45)
[2022-08-14] MEDS ORDERED: MORPHINE SULFATE INJ 2 MG/ml SYRG IV PRN ×2 (13:30→22:00)
[2022-08-14] MEDS ORDERED: ACETAMINOPHEN 325 MG TAB PO PRN (13:30)
[2022-08-14] MEDS ORDERED: DOCUSATE SOD 100 MG CAP PO PRN (13:30)
[2022-08-14] MEDS ORDERED: NITROGLYCERIN 0.4 MG SL TAB SL PRN (13:30)
[2022-08-14] MEDS ORDERED: HYDROcodone-ACET 5/325MG TAB PO PRN (13:30)
[2022-08-14] MEDS ORDERED: METOCLOPRAMIDE HCL 5MG/ml INJ 2ml VIAL IV PRN ×2 (16:15→19:45)
[2022-08-14] MEDS ORDERED: PROMETHAZINE HCL 25 MG/ML 1ML IV PRN (16:15)
[2022-08-14 18:55] LABS: Basophils # (auto) 0.1 10 ^3/uL (0-0.2); Eosinophils # (auto) 0 10 ^3/uL (0-0.8); Monocytes # (auto) 0.6 10 ^3/uL (0-1.3); Nucleated Red Blood Cells % 1.4 %; White Blood Cell 7.6 10^3/uL (4.4-10.8)
[2022-08-14 18:57] LABS: Basophils % (auto) 0.9 % (0.0-2.0); Hematocrit 19.8 % (41.0-53.0); Lymphocytes # (auto) 0.6 10 ^3/uL (0.4-5.4); Lymphocytes % (auto) 7.9 % (10.0-50.0); Mean Corpuscular Hemoglobin 17.4 pg (28.0-32.0); Mean Corpuscular Volume 61.9 fL (80.0-100.0); Monocytes % (auto) 7.8 % (0.0-12.0); Neutrophils # (auto) 6.3 10 ^3/uL (1.6-8.6); Neutrophils % (auto) 83.4 % (37.0-80.0); Red Blood Cells 3.19 10^6/uL (4.5-5.90)
[2022-08-14 18:58] LABS: Red Cell Distribution Width 36.1 % (11.8-14.3)
[2022-08-14 19:01] LABS: Hemoglobin 5.5 g/dL (13.5-17.5)
[2022-08-14] MEDS: SUCRALFATE 1 GM TAB PO SCH ×2 (19:20→21:50)
[2022-08-15] VITALS (9 sets, daily range): BP systolic 103–141; BP diastolic 66–98
[2022-08-15] MEDS: SUCRALFATE 1 GM TAB PO SCH ×2 (06:00→12:15)
[2022-08-15 07:16] LABS: Basophils # (auto) 0.1 10 ^3/uL (0-0.2); Basophils % (auto) 1.4 % (0.0-2.0); Eosinophils # (auto) 0 10 ^3/uL (0-0.8); Eosinophils % (auto) 0.3 % (0.0-7.0); Hematocrit 23.5 % (41.0-53.0); Hemoglobin 7.1 g/dL (13.5-17.5); Lymphocytes # (auto) 0.7 10 ^3/uL (0.4-5.4); Lymphocytes % (auto) 10.5 % (10.0-50.0); Mean Corpuscular Hemoglobin 20.4 pg (28.0-32.0); Mean Corpuscular Hgb Conc. 30.1 g/dL (32.0-36.0); Mean Corpuscular Volume 67.7 fL (80.0-100.0); Monocytes # (auto) 0.5 10 ^3/uL (0-1.3); Monocytes % (auto) 7.5 % (0.0-12.0); Neutrophils # (auto) 5.5 10 ^3/uL (1.6-8.6); Neutrophils % (auto) 80.3 % (37.0-80.0); Nucleated Red Blood Cells % 1.3 %; Red Blood Cells 3.47 10^6/uL (4.5-5.90); White Blood Cell 6.8 10^3/uL (4.4-10.8)
[2022-08-15 07:19] LABS: Red Cell Distribution Width 37.9 % (11.8-14.3)
[2022-08-15 07:37] LABS: Albumin 2.7 g/dL (3.4-5.0); Calcium 7.8 mg/dL (8.5-10.1); Potassium 4.6 mmol/L (3.5-5.1)
[2022-08-15 07:40] LABS: BUN/Creatinine Ratio 13.5; Bilirubin, Total 1.2 mg/dL (0.2-1.0); Total Protein 5.6 g/dL (6.4-8.2)
== END 2022-08-15 14:09 | disposition left against medical advice (07) | DRG 663 ==
LOC: ER 10:42 → TELE 13:20
PROVIDERS: ADMIT Nurse Practitioner Family; ATTEND Nurse Practitioner Family
PROC: 30233N1 Transfusion of Nonautologous Red Blood Cells into Peripheral Vein, Percutaneous Approach (ICD-10-PCS; principal; 2022-08-14)
DX: D64.9 Anemia, unspecified (principal); N17.9 Acute kidney failure, unspecified; J45.909 Unspecified asthma, uncomplicated; Z53.29 Procedure and treatment not carried out because of patient's decision for other reasons; Z20.822 Contact with and (suspected) exposure to COVID-19; K21.9 Gastro-esophageal reflux disease without esophagitis; Z80.0 Family history of malignant neoplasm of digestive organs; Z83.3 Family history of diabetes mellitus; Z91.018 Allergy to other foods; Z87.11 Personal history of peptic ulcer disease; Z95.1 Presence of aortocoronary bypass graft
CPT/HCPCS: 36415; 71045; 74176; 80053; 83605; 83735; 84484; 85025; 86850; 86900; 86901; 86920; 87040; 87426; 93005; 96361; 96365; 96375; 99291; G0378; J0696; J2405; J3490; Q0162

== ENCOUNTER 2023-06-07 15:12 | Inpatient (IN) | payer MEDICAID ==
[~2023-06-07] VITALS: Ht 170.2 cm; Wt 90.0 kg
[~2023-06-07 15:12] MED LIST changes: -AMOX500T86 PO; -SUCR1SUS10 PO; +SUCR1SUS26 PO
[2023-06-07] MEDS ORDERED: PANTOPRAZOLE 80 MG in SODIUM CHL 0.9% 100 ML IV ONE (15:45)
[2023-06-07] MEDS ORDERED: PANTOPRAZOLE 40mg/50ML NS AE 50 ML IV ONE (15:45)
[2023-06-07] MEDS ORDERED: ONDANSETRON HCL 4 MG/2 ML VIAL IV ONE (16:00)
[2023-06-07] MEDS ORDERED: SODIUM CHLORIDE 0.9% 1,000 ML IV ONE ×3 (16:00→17:15)
[2023-06-07 16:33] LABS: Hematocrit 23.4 % (41.0-53.0); Mean Corpuscular Hgb Conc. 26.1 g/dL (32.0-36.0)
[2023-06-07 16:36] LABS: Mean Corpuscular Hemoglobin 14.2 pg (28.0-32.0); Mean Corpuscular Volume 54.7 fL (80.0-100.0); Red Blood Cells 4.27 10^6/uL (4.5-5.90)
[2023-06-07 16:50] LABS: Alanine Aminotransferase 11 U/L (7-40); Albumin 3.7 g/dL (3.2-4.8); Alkaline Phosphatase 59 U/L (46-116); Anion Gap 7 (5-15); Aspartate Aminotransferase < 8 U/L (13-40); BUN/Creatinine Ratio 29.1 (10.0-20.0); Bilirubin, Total 0.7 mg/dL (0.2-1.0); Blood Urea Nitrogen 78 mg/dL (9-23); Calcium 8.4 mg/dL (8.7-10.4); Carbon Dioxide 28 mmol/L (20-30); Chloride 98 mmol/L (98-107); Glucose 132 mg/dL (74-106); Lipase 36 U/L (12-53); Magnesium 2.2 mg/dL (1.6-2.6); Potassium 4.3 mmol/L (3.5-5.1); Sodium 133 mmol/L (136-145); Total Protein 5.8 g/dL (5.7-8.2)
[2023-06-07 16:58] LABS: Red Cell Distribution Width 20.9 % (11.8-14.3)
[2023-06-07 16:59] LABS: White Blood Cell 30.1 10^3/uL (4.4-10.8)
[2023-06-07 17:00] LABS: Hemoglobin 6.1 g/dL (13.5-17.5)
[2023-06-07 17:01] LABS: Basophils % (manual) 0 (0.0-2.0); Blast Cells 0; Eosinophils % (manual) 0 (0-7); Metamyelocytes % 0; Myelocytes % 0; Promyelocytes % 0; Reactive Lymphocytes 0
[2023-06-07 17:02] LABS: INR 1.09 (0.9-1.15); Prothrombin Time 11.4 sec (9.3-11.8)
[2023-06-07] MEDS ORDERED: OCTREOTIDE ACETATE 100 MCG in SODIUM CHL 0.9% 50 ML IV ONE (17:15)
[2023-06-07] MEDS: OCTREOTIDE ACETATE 500 MCG in SODIUM CHL 0.9% 99 ML IV SCH (17:15)
[2023-06-07 17:17] LABS: Band Neutrophils % (manual) 3; Lymphocytes % (manual) 7 (10.0-50.0); Monocytes % (manual) 5 (0-12)
[2023-06-07 17:18] LABS: Anisocytosis Slight; Hypochromia Marked
[2023-06-07 17:19] LABS: Platelet Estimate Adequa
[2023-06-07] MEDS ORDERED: ONDANSETRON HCL 4 MG/2 ML VIAL IV PRN (18:30)
[2023-06-07] MEDS ORDERED: MORPHINE SULFATE INJ 2 MG/ml SYRG IV PRN (18:30)
[2023-06-07] MEDS ORDERED: DOCUSATE SOD 100 MG CAP PO PRN (18:30)
[2023-06-07] MEDS: SODIUM CHLORIDE 0.9% 1,000 ML IV SCH (18:44)
[2023-06-07 19:01] LABS: Hematocrit 22.1 % (41.0-53.0)
[2023-06-07 19:11] LABS: Hemoglobin 5.4 g/dL (13.5-17.5)
[2023-06-07 19:30] VITALS: PULSE 120; RESP 20; O2SAT 100
[2023-06-07 21:40] VITALS: BP 98/61; PULSE 115; RESP 18; TEMP 98.4
[2023-06-07] MEDS: PIPERACILLIN-TAZOB 3.375GM 100 ML IV SCH (21:40)
[2023-06-07 21:50] VITALS: BP 105/57; PULSE 124; RESP 18; TEMP 98.4
[2023-06-07 23:25] VITALS: BP 106/68; PULSE 113; RESP 16; TEMP 98.6
[2023-06-07 23:30] VITALS: BP 101/62; PULSE 117; RESP 16; TEMP 98.6
[2023-06-08] VITALS (20 sets, daily range): BP systolic 86–124; BP diastolic 45–71; PULSE 68–109; RESP 14–19; TEMP 97.5–99.5; O2SAT 91–100
[2023-06-08 02:29] LABS: Creatinine, Urine 80.51 mg/dL (30.0-125.0)
[2023-06-08 02:58] LABS: Hematocrit 28.8 % (41.0-53.0); Hemoglobin 8.4 g/dL (13.5-17.5)
[2023-06-08] MEDS: SODIUM CHLORIDE 0.9% 1,000 ML IV SCH ×3 (03:28→19:30)
[2023-06-08] MEDS: PIPERACILLIN-TAZOB 3.375GM 100 ML IV SCH ×2 (03:28→10:30)
[2023-06-08 06:27] LABS: Basophils # (auto) 0.1 10 ^3/uL (0-0.2); Basophils % (auto) 0.3 % (0.0-2.0); Eosinophils # (auto) 0 10 ^3/uL (0-0.8); Hemoglobin 7.5 g/dL (13.5-17.5); Monocytes # (auto) 1.4 10 ^3/uL (0-1.3)
[2023-06-08 06:29] LABS: Hematocrit 27.5 % (41.0-53.0); Lymphocytes # (auto) 1.9 10 ^3/uL (0.4-5.4); Lymphocytes % (auto) 8.6 % (10.0-50.0); Mean Corpuscular Hemoglobin 18.4 pg (28.0-32.0); Mean Corpuscular Hgb Conc. 27.2 g/dL (32.0-36.0); Mean Corpuscular Volume 67.8 fL (80.0-100.0); Monocytes % (auto) 6.5 % (0.0-12.0); Neutrophils # (auto) 18.4 10 ^3/uL (1.6-8.6); Neutrophils % (auto) 84.6 % (37.0-80.0); Nucleated Red Blood Cells % 0.2 %; Red Blood Cells 4.06 10^6/uL (4.5-5.90); White Blood Cell 21.8 10^3/uL (4.4-10.8)
[2023-06-08 06:34] LABS: Red Cell Distribution Width 32.7 % (11.8-14.3)
[2023-06-08 06:41] LABS: Albumin 3.2 g/dL (3.2-4.8); Alkaline Phosphatase 55 U/L (46-116); Anion Gap 8 (5-15); Aspartate Aminotransferase 11 U/L (13-40); BUN/Creatinine Ratio 19.1 (10.0-20.0); Carbon Dioxide 23 mmol/L (20-30); Chloride 106 mmol/L (98-107); Glucose 109 mg/dL (74-106); Potassium 4.6 mmol/L (3.5-5.1); Sodium 137 mmol/L (136-145)
[2023-06-08 06:42] LABS: Bilirubin, Total 0.7 mg/dL (0.2-1.0); Total Protein 5.3 g/dL (5.7-8.2)
[2023-06-08 06:44] LABS: Alanine Aminotransferase < 9 U/L (7-40); Blood Urea Nitrogen 46 mg/dL (9-23)
[2023-06-08] MEDS: OCTREOTIDE ACETATE 500 MCG in SODIUM CHL 0.9% 99 ML IV SCH ×4 (07:48→23:59)
[2023-06-08 09:18] LABS: Platelet Estimate Adequate
[2023-06-08 09:28] LABS: Anisocytosis Marked; Hypochromia Marked; Ovalocytes MODERATE
[2023-06-08 09:29] LABS: Target Cell FEW; Tear Drop Cells MODERATE
[2023-06-08] MEDS ORDERED: FLUMAZENIL 0.1 MG/ML INJ 10ML MDV IV ONE (09:55)
[2023-06-08] MEDS ORDERED: NALOXONE HCL 0.4 MG/ML VIAL ONE (09:55)
[2023-06-08] MEDS ORDERED: SODIUM CHLORIDE LOCK 10 ML ONE (09:55)
[2023-06-08] MEDS ORDERED: LIDOCAINE VISCOUS 2% 15ML UD ONE (09:56)
[2023-06-08] MEDS ORDERED: diphenhdrAMINE HCL 50 MG/1 ML VL ONE (09:56)
[2023-06-08] MEDS ORDERED: fentaNYL CITRATE 100 MCG/2 ML VL ONE (09:56)
[2023-06-08 10:20] LABS: Hematocrit 23.3 % (41.0-53.0)
[2023-06-08 10:28] LABS: Hemoglobin 6.7 g/dL (13.5-17.5)
[2023-06-08] MEDS ORDERED: SODIUM CHLORIDE 0.9% 1,000 ML IV ONE (12:30)
[2023-06-08 14:36] LABS: Sodium Urine 53 mmol/L (40-220)
[2023-06-08 14:42] LABS: Amphetamine Screen, Urine Neg (NEGATIVE); Benzodiazephine Screen, Urine Neg (NEGATIVE); Protein, Urine 15.8 mg/dL (0.0-11.9)
[2023-06-08 14:43] LABS: Creatinine, Urine 71.33 mg/dL (30.0-125.0); Urine Protein/Creatinine Ratio 0.22
[2023-06-08 14:44] LABS: Barbiturate Scree,Urine Neg (NEGATIVE); Cannabinoid Screen, Urine Neg (NEGATIVE); Cocaine Screen, Urine Neg (NEGATIVE); Opiate Scree,Urine Neg (NEGATIVE); Phencyclidine Screen, Urine Neg (NEGATIVE)
[2023-06-08 14:48] LABS: Urine Bacteria NONE SEEN /hpf (None Seen); Urine Blood Negative /uL (Negative); Urine Clarity Clear (Clear); Urine Color Colorless (Yellow); Urine Protein, UAD Negative (Negative); Urine Specific Gravity 1.018 (1.001-1.035); Urine Urobilinogen Normal (Negative); Urine WBC <1 /hpf (0 - 3)
[2023-06-08] MEDS: MIDAZOLAM HCL 5 MG/ML-1ML VIAL ONE ×3 (15:27→15:34)
[2023-06-08] MEDS ORDERED: SUCRALFATE 1 GM/10 ML ORAL SUSP PO SCH (17:00)
[2023-06-08] MEDS: SUCRALFATE 1 GM/10 ML ORAL SUSP PO SCH ×2 (17:23→22:38)
[2023-06-08 22:38] LABS: Hematocrit 23.8 % (41.0-53.0)
[2023-06-08] MEDS: PANTOPRAZOLE 40 MG/10 ML VIAL INJ IV SCH (22:38)
[2023-06-08 22:44] LABS: Hemoglobin 6.8 g/dL (13.5-17.5)
[2023-06-09 00:14] VITALS: BP 112/50; PULSE 94; RESP 18; TEMP 98.6
[2023-06-09 02:42] VITALS: BP 119/50; PULSE 75; RESP 20; TEMP 99.1
[2023-06-09] MEDS: PIPERACILLIN-TAZOB 3.375GM 100 ML IV SCH ×2 (03:19→10:15)
[2023-06-09] MEDS: SODIUM CHLORIDE 0.9% 1,000 ML IV SCH (03:50)
[2023-06-09 05:00] VITALS: BP 126/64; PULSE 81; RESP 18; TEMP 99.1; O2SAT 95
[2023-06-09] MEDS: SUCRALFATE 1 GM/10 ML ORAL SUSP PO SCH ×2 (06:00→10:14)
[2023-06-09 08:00] VITALS: PULSE 68; RESP 18; O2SAT 97
[2023-06-09 09:00] VITALS: BP 132/70; PULSE 76; RESP 20; TEMP 98.3; O2SAT 97
[2023-06-09] MEDS: PANTOPRAZOLE 40 MG/10 ML VIAL INJ IV SCH (10:14)
[2023-06-09 12:46] VITALS: BP 126/58; PULSE 75; RESP 20; TEMP 98.6; O2SAT 97
[2023-06-09] MEDS ORDERED: PANT40TA2 PO (13:10)
[2023-06-09] MEDS ORDERED: SUCR1TAB22 OR (13:10)
[2023-06-09 14:47] LABS: Eosinophils # (auto) 0.1 10 ^3/uL (0-0.8); Hemoglobin 8.6 g/dL (13.5-17.5); Mean Corpuscular Hemoglobin 21.3 pg (28.0-32.0); Mean Corpuscular Volume 70.9 fL (80.0-100.0); Monocytes # (auto) 0.4 10 ^3/uL (0-1.3); White Blood Cell 6.4 10^3/uL (4.4-10.8)
[2023-06-09 14:49] LABS: Basophils # (auto) 0.1 10 ^3/uL (0-0.2); Basophils % (auto) 1.3 % (0.0-2.0); Eosinophils % (auto) 1.5 % (0.0-7.0); Hematocrit 28.7 % (41.0-53.0); Lymphocytes # (auto) 1.3 10 ^3/uL (0.4-5.4); Lymphocytes % (auto) 21.1 % (10.0-50.0); Monocytes % (auto) 6.7 % (0.0-12.0); Neutrophils # (auto) 4.4 10 ^3/uL (1.6-8.6); Neutrophils % (auto) 69.4 % (37.0-80.0); Nucleated Red Blood Cells % 0.2 %; Red Blood Cells 4.05 10^6/uL (4.5-5.90)
[2023-06-09 14:54] LABS: Chloride 109 mmol/L (98-107); Potassium 4.1 mmol/L (3.5-5.1); Sodium 138 mmol/L (136-145)
[2023-06-09 14:55] LABS: Anion Gap 3 (5-15); Calcium 7.9 mg/dL (8.7-10.4); Carbon Dioxide 26 mmol/L (20-30)
[2023-06-09 15:00] LABS: BUN/Creatinine Ratio 14.1 (10.0-20.0); Glucose 121 mg/dL (74-106)
[2023-06-09 15:02] LABS: Blood Urea Nitrogen 25 mg/dL (9-23)
== END 2023-06-09 15:20 | disposition left against medical advice (07) | DRG 241 ==
LOC: ER 15:12 → EDBD 15:12 → TELE 18:23 → TELE-WESTW 23:50
PROVIDERS: ADMIT Nurse Practitioner Family; ATTEND Nurse Practitioner
PROC: 30233N1 Transfusion of Nonautologous Red Blood Cells into Peripheral Vein, Percutaneous Approach (ICD-10-PCS; 2023-06-07)
PROC: 0DB68ZX Excision of Stomach, Via Natural or Artificial Opening Endoscopic, Diagnostic (ICD-10-PCS; 2023-06-08)
PROC: 0DB38ZX Excision of Lower Esophagus, Via Natural or Artificial Opening Endoscopic, Diagnostic (ICD-10-PCS; principal; 2023-06-08 15:17)
DX: K29.71 Gastritis, unspecified, with bleeding (principal); K22.11 Ulcer of esophagus with bleeding; K21.01 Gastro-esophageal reflux disease with esophagitis, with bleeding; N17.9 Acute kidney failure, unspecified; D62 Acute posthemorrhagic anemia; E87.1 Hypo-osmolality and hyponatremia; I95.9 Hypotension, unspecified; K74.60 Unspecified cirrhosis of liver; N13.30 Unspecified hydronephrosis; E86.0 Dehydration; R55 Syncope and collapse; N18.9 Chronic kidney disease, unspecified; D72.829 Elevated white blood cell count, unspecified; K44.9 Diaphragmatic hernia without obstruction or gangrene; F10.10 Alcohol abuse, uncomplicated; J45.909 Unspecified asthma, uncomplicated; Z53.29 Procedure and treatment not carried out because of patient's decision for other reasons; Z80.0 Family history of malignant neoplasm of digestive organs; Z83.3 Family history of diabetes mellitus; Z87.11 Personal history of peptic ulcer disease; Z95.1 Presence of aortocoronary bypass graft
CPT/HCPCS: 36415; 43239; 70450; 71045; 74176; 76775; 80048; 80053; 80307; 81001; 82306; 82570; 83690; 83735; 83970; 84100; 84156; 84300; 84484; 85007; 85014; 85018; 85025; 85027; 85610; 86850; 86900; 86901; 86920; 87040; 93005; 96365; 96367; 96368; 99291; C9113; G0378; J2250; J2405; J2543

== ENCOUNTER 2024-07-20 09:12 | Inpatient (IN) | payer MEDICAID ==
[~2024-07-20] VITALS: Ht 172.7 cm; Wt 96.7 kg
[2024-07-20] VITALS (7 sets, daily range): BP systolic 126–153; BP diastolic 71–81; PULSE 78–125; RESP 12–20; TEMP 97.5–99.5; O2SAT 92–100
[~2024-07-20 09:12] MED LIST changes: -SUCR1SUS26 PO
[2024-07-20 10:15] LABS: Alanine Aminotransferase 20 U/L (7-40); Alkaline Phosphatase 92 U/L (46-116); Anion Gap 8 (5-15); Aspartate Aminotransferase 15 U/L (13-40); BUN/Creatinine Ratio 15.2 (10.0-20.0); Bilirubin, Total 1.1 mg/dL (0.2-1.0); Calcium 9.8 mg/dL (8.7-10.4); Potassium 3.8 mmol/L (3.5-5.1); Sodium 137 mmol/L (136-145)
[2024-07-20 10:17] LABS: Albumin 5.2 g/dL (3.2-4.8); Blood Urea Nitrogen 42 mg/dL (9-23); Carbon Dioxide 38 mmol/L (20-31); Chloride 91 mmol/L (98-107); Glucose 163 mg/dL (74-106); Total Protein 8.2 g/dL (5.7-8.2)
[2024-07-20 10:30] LABS: Mean Corpuscular Volume 51.4 fL (80.0-100.0)
[2024-07-20 10:31] LABS: Hematocrit 26.7 % (41.0-53.0); Mean Corpuscular Hemoglobin 12.9 pg (28.0-32.0); Mean Corpuscular Hgb Conc. 25.1 g/dL (32.0-36.0); Platelet Count (auto) 510 10^3/uL (140-450); Red Cell Distribution Width 22.3 % (11.8-14.3); White Blood Cell 21.3 10^3/uL (4.4-10.8)
[2024-07-20 10:35] LABS: INR 1.13 (0.9-1.15); Partial Thromboplastin Time 24.7 SEC (24.5-34.5); Prothrombin Time 11.8 sec (9.3-11.8)
[2024-07-20 10:36] LABS: Hemoglobin 6.7 g/dL (13.5-17.5)
[2024-07-20 10:37] LABS: Basophils % (manual) 0 (0.0-2.0); Blast Cells 0; Eosinophils % (manual) 0 (0-7); Metamyelocytes % 0; Myelocytes % 0; Promyelocytes % 0; Reactive Lymphocytes 0
[2024-07-20 11:22] LABS: Band Neutrophils % (manual) 1; Lymphocytes % (manual) 5 (10.0-50.0); Monocytes % (manual) 4 (0-12)
[2024-07-20 11:23] LABS: Giant Platelets Few; Hypochromia Marked; Large Platelets FEW
[2024-07-20 11:24] LABS: Anisocytosis Slight
[2024-07-20 11:25] LABS: Platelet Estimate Increased
[2024-07-20 11:26] LABS: Polychromasia Slight
--- NOTE | 2024-07-20 11:27 | ED.PDOC ---
GI ASSESSMENT HPI Comments 48-year-old male with PMHx GERD, Ulcer Disease brought in by EMS presents with a chief complaint of abdominal pain x onset last night with associated vomiting and nausea. Patient states that his pain is localized to his epigastric/sternal region, describes as burning, non-radiating, and rates his pain a 7/10. Patient mentions that he is vomiting coffee ground emesis since last night. Patient mentions that this has happened before and he was told that he had an Ulcer. Patient reports that he currently takes Pantoprazole and Sucralfate. Patient mentions that on August 04, 2023 he had the ulcer catheterized. No other symptoms or modifying factors present at this time. Chief Complaint: Nausea/Vomiting Time Seen by MD: 10:11 Primary Care Provider: ECTOR Peraza Notes: Medications, Allergies Allergies: Coded Allergies: Kiwi Extract (Verified Allergy, Severe, 08/15/23) Uncoded Allergies: KIWI (Allergy, Unknown, 05/05/21) Home Meds Active Scripts Pantoprazole Sodium Sesquihydr (Protonix) 40 Mg Tab, 40 MG PO BID, #60 TAB Prov:DOMINGUEZ JONES NP 06/09/23 Reported Medications Sucralfate (Sucralfate) 1 Gm Tab, 1 TAB PO QID 10/12/21 Information Source: Patient Mode of Arrival: EMS Timing: Hours Duration: Since onset Prehospital treatment: None Quality: Burning Vomitus: Coffee Grounds Stool: Normal Severity: Moderate Recent: None Recent Hx of: GI Bleed, Ulcer Disease Pain Location: Epigastric Past Medical History PAST MEDICAL HISTORY: Anemia, Asthma, GERD Surgical History: CABG Family History Family History: Unknown Social History Smoker: Non-Smoker Alcohol: Occasionally Drugs: Denies Drug Use Lives In: Home Constitutional: denies: chills, diaphoresis, fatigue, fever, malaise, sweats, weakness, others EENTM: denies: blurred vision, double vision, ear bleeding, ear discharge, ear drainage, ear pain, ear ringing, eye pain, eye redness, hearing loss, mouth pain, mouth swelling, nasal discharge, nose bleeding, nose congestion, nose pain, photophobia, tearing, throat pain, throat swelling, voice changes, others Respiratory: denies: cough, hemoptysis, orthopnea, SOB at rest, shortness of breath, SOB with excertion, stridor, wheezing, others Cardiovascular: denies: chest pain, dizzy spells, diaphoresis, Dyspnea on exertion, edema, irregular heart beat, left arm pain, lightheadedness, palpitations, PND, syncope, others Gastrointestinal: reports: abdominal pain, diarrhea, nausea, vomiting; denies: abdomen distended, blood streaked bowels, constipated, dysphagia, difficulty swallowing, hematemesis, melena, poor appetite, poor fluid intake, rectal bleeding, rectal pain, others Genitourinary: denies: burning, dysuria, flank pain, frequency, hematuria, incontinence, penile discharge, penile sore, pain, testicle pain, testicle swelling, urgency, others Neurological: denies: dizziness, fainting, headache, left sided numbness, left sided weakness, numbness, paresthesia, pre-existing deficit, right sided numbness, right sided weakness, seizure, speech problems, tingling, tremors, weakness, others Musculoskeletal: denies: back pain, gout, joint pain, joint swelling, muscle pain, muscle stiffness, neck pain, others Integumetry: denies: bruises, change in color, change in hair/nails, dryness, laceration, lesions, lumps, rash, wounds, others Allergic/Immunocompromised: denies: Difficulty Healing, Frequent Infections, Hives, Itching, others Hematologic/Lymphatic: denies: anemia, blood clots, easy bleeding, easy brui sing, swollen glands, others Endocrine: denies: excessive hunger, excessive sweating, excessive thirst, ex cessive urination, flushing, intolerance to cold, intolerance to heat, unexplained weight gain, unexplained weight loss, others Psychiatric: denies: anxiety, bipolar disorder, depression, hopeless, panic disorder, schizophrenia, sleepless, suicidal, others All Other Systems: Reviewed and Negative Physical Exam General Appearance: Moderate Distress, Normal, Other (Pale appearing) HEENT: Normal ENT Inspection, Pharynx Normal, TMs Normal Neck: Full Range of Motion, Non-Tender, Normal, Normal Inspection Respiratory: Chest Non-Tender, Lungs Clear, No Accessory Muscle Use, No Respiratory Distress, Normal Breath Sounds Cardiovascular: No Edema, No JVD, No Murmur, No Gallop, Normal Peripheral Pulses, Tachycardia Breast Exam: Deferred Gastrointestinal: Epigastric, No Organomegaly, No Pulsatile Mass, Normal Bowel Sounds, Soft, Tenderness Genitalia: Deferred Pelvic: Deferred Rectal: Deferred Extremities: No calf tenderness, Normal capillary refill, Normal inspection, Normal range of motion, Non-tender, No pedal edema Musculoskeletal : Apperance: Normal Neurologic: Alert, No Motor Deficits, Normal Affect, Normal Mood, No Sensory Deficits Cerebellar Function: Normal Reflexes: Normal Skin: Dry, Normal Color, Warm Lymphatic: No Adenopathy EKG EKG : Pulse Rate (adult): 115 [place]: Normal Cardiac Rhythm: ST Block: None Hypertrophy: None ST: Normal Was a procedure done? Was a procedure done?: No GI differential Dx Differential Diagnosis: Esophagitis, Gastritis/PUD, GI hemorrhage, Hypovolemia, Anemia, Esophageal Varicies X-Ray, Labs, Meds, VS Vital Signs Date Time Temp Pulse Resp B/P (MAP) Pulse Ox O2 Delivery O2 Flow Rate FiO2 07/20/24 12:00 113 18 117/68 (84) 100 07/20/24 11:27 115 07/20/24 10:45 98.2 109 19 129/67 (87) 92 98.2 07/20/24 10:45 109 19 92 Room Air* 0 21 07/20/24 09:15 99.7 112 16 144/86 (105) 98 Lab Test 07/20/24 09:47 Range/Units White Blood Count 21.3 H 4.4-10.8 10^3/uL Red Blood Count 5.20 4.5-5.90 10^6/uL Hemoglobin 6.7 *L 13.5-17.5 g/dL Hematocrit 26.7 L 41.0-53.0 % Mean Corpuscular Volume 51.4 L 80.0-100.0 fL Mean Corpuscular Hemoglobin 12.9 L 28.0-32.0 pg Mean Corpuscular Hemoglobin Concent 25.1 L 32.0-36.0 g/dL Red Cell Distribution Width 22.3 H 11.8-14.3 % Platelet Count 510 H 140-450 10^3/uL Mean Platelet Volume 8.0 6.9-10.8 fL Neutrophils (%) (Auto) 37.0-80.0 % Lymphocytes (%) (Auto) 10.0-50.0 % Monocytes (%) (Auto) 0.0-12.0 % Basophils (%) (Auto) 0.0-2.0 % Neutrophils # (Auto) 1.6-8.6 10 ^3/uL Lymphocytes # (Auto) 0.4-5.4 10 ^3/uL Monocytes # (Auto) 0-1.3 10 ^3/uL Differential Total Cells Counted 100.0 100 Neutrophils % (Manual) 90 H 37.0-80.0 Band Neutrophils % (Manual) 1 Lymphocytes % (Manual) 5 L 10.0-50.0 Monocytes % (Manual) 4 0-12 Eosinophils % (Manual) 0 0-7 Basophils % (Manual) 0 0.0-2.0 Metamyelocytes % (manual) 0 Myelocytes % (Manual) 0 Promyelocytes % (Manual) 0 Blast Cells % (Manual) 0 Nucleated Red Blood Cells 1.0 % Reactive Lymphocytes 0 Platelet Estimate Increased Large Platelets Few Giant Platelets Few Polychromasia Slight Hypochromasia (manual) Marked Anisocytosis (manual) Slight Microcytosis Marked Prothrombin Time 11.8 9.3-11.8 sec Prothrombin Time INR 1.13 0.9-1.15 Activated Partial Thromboplast Time 24.7 24.5-34.5 SEC Sodium Level 137 136-145 mmol/L Potassium Level 3.8 3.5-5.1 mmol/L Chloride Level 91 L 98-107 mmol/L Carbon Dioxide Level 38 H 20-31 mmol/L Anion Gap 8 5-15 Blood Urea Nitrogen 42 H 9-23 mg/dL Creatinine 2.76 H 0.700-1.30 mg/dL Glomerular Filtration Rate Calc 28 >90 mL/min BUN/Creatinine Ratio 15.2 10.0-20.0 Serum Glucose 163 H 74-106 mg/dL Calcium Level 9.8 8.7-10.4 mg/dL Phosphorus Level 5.0 2.4-5.1 mg/dL Magnesium Level 2.1 1.6-2.6 mg/dL Iron Level Pending Total Iron Binding Capacity Pending Percent Iron Saturation Pending Ferritin 1.8 L 22-322 ng/mL Total Bilirubin 1.1 H 0.2-1.0 mg/dL Aspartate Amino Transferase (AST) 15 13-40 U/L Alanine Aminotransferase (ALT) 20 7-40 U/L Alkaline Phosphatase 92 46-116 U/L Total Protein 8.2 5.7-8.2 g/dL Albumin 5.2 H 3.2-4.8 g/dL Vitamin D 25-Hydroxy Pending Parathyroid Hormone (Intact) Pending Current Medications Medications (Trade) Dose Ordered Sig/Sandra Route Start Time Stop Time Status Last Admin Ondansetron HCl (Zofran) 4 mg ONCE ONCE IV 07/20/24 11:45 07/20/24 11:46 DC 07/20/24 11:45 Ceftriaxone Sodium 50 ml @ 100 mls/hr ONCE ONCE IV 07/20/24 11:45 07/20/24 12:14 DC 07/20/24 11:45 Pantoprazole Sodium (Protonix) 40 mg ONCE ONCE IV 07/20/24 11:45 07/20/24 11:46 DC 07/20/24 11:45 Lidocaine HCl (Xylocaine 2% Viscous) 10 ml ONCE ONCE PO 07/20/24 11:45 07/20/24 11:46 DC 07/20/24 11:44 PATIENT: PAOLO COOPEROACCT: [id number]: [id number] : 1975 [facility] SEX[facility] 48 / M ADM STATUS: ADM IN SERVICE 1228 ORDERING PHYSICIAN: NELLY RIDDLE CONFERENCE CONCIERGE PROCEDURE(s): ABPL - CT AB PEL WO CON-NO ORAL OR IV REASON: abd pain ORDER NUMBER(s): [id number], ACCESSION NUMBER(s): [id number] CT ABDOMEN AND PELVIS WITHOUT CONTRAST CLINICAL HISTORY: abd pain TECHNIQUE: Multiple contiguous axial images of the abdomen and pelvis without intravenous contrast. The images were reformatted degenerate coronal and sagit daniella reconstructions. All CT scans at this medical facility are performed using dose modulation techniques as appropriate to a performed exam including the following:Automated exposure control was utilized; adjustment of the MA and/or KV according to patie nt size; and use of iterative reconstruction technique. Radiation Dose Information: CT Dose: CTDI volume is 10 mGy. Dose-length product is 553 mGy*cm Comparison: CT CT AB PEL WO CON-NO ORAL OR IV on DOS: 06/07/23, CT ABD PELVIS WO CONTRAST on DOS: 08/14/22 FINDINGS: Evaluation of the abdomen and pelvis is limited without intravenous contrast. There is a 7 mm calculus in the midpole of the left kidney. There is no right renal calculus. There is no hydronephrosis. There is no evidence of a ureteral calculus or hydroureter. The liver, gallbladder, pancreas, adrenal glands, and spleen appear within normal limits. There is no gross evidence of abdominal lymphadenopathy. There is no free fluid or free air. There is small hiatal hernia. The small and large bowel loops demonstrate normal caliber. There are diverticula in the sigmoid colon without evidence of acute diverticulitis. The abdominal aorta and IVC appear within normal limits. The bladder appears unremarkable for the degree of distention. Pelvic organ appears within normal limits. There is no gross evidence of a pelvic mass. There is no free fluid collection. Lung bases are clear. There is no acute osseous abnormality. There are multiple small metallic fragments in the left posterolateral lower chest wall. IMPRESSION: 1. There is no acute process in the abdomen and pelvis. 2. 7 mm nonobstructive left renal calculus. 3. Sigmoid diverticulosis. HS:Y ATED BY: HAMILTON FORRESTER MD DICTATED DATE/TIME: 07/20/24 1320 SIGNED BY: HAMILTON FORRESTER MD SIGNED DATE/TIME: 07/20/24 1320 48-year-old male presents here with coffee-ground emesis. He has a history of gastric ulcers and states it has bled in the past. On my evaluation patient was pale appearing heaving. Patient was immediately evaluated my myself as nursing staff called me to bedside. Patient was tachycardic. This time blood work has been done which demonstrates a leukocytosis of 21 and hemoglobin of 6.7. Patient was agreeable to transfusion. I have started the patient on Rocephin and pantoprazole IV. Patient has been written for 1 unit PRBC. At this time hospitalist team has been contacted for admission. Patient remains critical while in the ER. Time of 1ST Reevaluation: 10:41 Reevaluation 1ST: Unchanged Patient Education/Counseling: Diagnosis, Treatment, Prognosis Family Education/Counseling: No Family Present Departure 1 Departure Time of Disposition: 11:15 Impression: Primary Impression: Acute anemia Additional Impressions: Hematemesis/vomiting blood Qualified Codes: K92.0 - Hematemesis Leukocytosis Qualified Codes: D72.829 - Elevated white blood cell count, unspecified Disposition: ADMITTED INPATIENT Admit to: [facility] Condition: Guarded Critical Care Note Critical Care Time?: Yes (35 min-critical care time only) Critical care comment: Patient presents with a life-threatening condition. I re-evaluated the patient immediately. He was tachycardic appeared pale. Patient here with GI bleed. At this time time was spent assessing the patient, multiple re-evaluations, ordering test, interpreting test and speaking to admitting team. Stability Stability form required: No Heart Score Heart Score: Heart Score Response (Comments) Value History N/A 0 EKG N/A 0 Age N/A 0 Risk Factors N/A 0 Troponin N/A 0 Total 0 I personally scribed for CRYSTAL MCKINLEY MD ([email or web address]) on 07/20/24 at 11:27. Electronically submitted by El Cooper ([email or web address]). I personally scribed for CRYSTAL MCKINLEY MD ([email or web address]) on 07/20/24 at 12:58. Electronically submitted by El Cooper ([email or web address]). I personally scribed for CRYSTAL MCKINLEY MD ([email or web address]) on 07/20/24 at 17:05. Electronically submitted by El Cooper ([email or web address]). CRYSTAL MCKINLEY MD Jul 20, 2024 11:27
[2024-07-20] MEDS: LIDOCAINE VISCOUS 2% 15ML UD PO ONE (11:44)
[2024-07-20] MEDS: cefTRIAXone 1GM/50ML D5W 50 ML IV ONE (11:45)
[2024-07-20] MEDS: PANTOPRAZOLE 40 MG/10 ML VIAL INJ IV ONE (11:45)
[2024-07-20] MEDS: ONDANSETRON HCL 4 MG/2 ML VIAL IV ONE (11:45)
[2024-07-20] MEDS ORDERED: MORPHINE SULFATE INJ 2 MG/ml SYRG IV PRN (13:00)
[2024-07-20] MEDS ORDERED: ACETAMINOPHEN 325 MG TAB PO PRN (13:00)
--- NOTE | 2024-07-20 13:01 | DVHHP2 ---
History of Present Illness Reason for Visit: Abdominal pain, nausea, and vomiting History of Present Illness Joseph Cooper is a 48-year-old male with past medical history of GERD, ulcers, CABG at 3 years of age, anemia, and EGD who presents to the ED for abdominal pain, nausea, and vomiting coffee-ground emesis since 10:00 p.m. last night. Patient reports that his abdominal pain is 7/10 intermittent throbbing and burning. Patient states that ice chips makes it better and there are no triggering factors. Patient denies recent ingestion of spoiled intake, recent sick contacts, fever, chills, chest pain, shortness of breath, lightheadedness, dizziness, and diarrhea. GI: GERD, Peptic Ulcer disease Heme/Onc: Anemia NOS Past Surgical History: CABG Family History: Cancer, DM, Other (Brother with diabetes, grandmother with liver cancer and uterine cancer) Smoke: No ALCOHOL: none Drugs: None Lives: with Family Domestic Violence: Neg Review of Systems Constitutional: Yes: Weakness; No: Fever, Chills, Sweats, Malaise, Other Eyes: No: Pain, Vision change, Conjunctivae inflammation, Eyelid inflammation, Other, Redness ENT: No: Ear pain, Ear discharge, Nose pain, Nose discharge, Nose congestion, Mouth pain, Mouth swelling, Throat pain, Throat swelling, Other Respiratory: No: Cough, Dry, Shortness of breath, SOB with excertion, Wheezing, Hemoptysis, Pleuritic Pain, Sputum, Wheezing, Other Cardiovascular: No: Chest Pain, Palpitations, Orthopnea, Paroxysmal Noc. Dyspnea, Edema, Lt Headedness, Other Gastrointestinal: Nausea, Vomiting, Abdominal Pain, Other (Hematemesis); No: Diarrhea, Constipation, Melena, Hematochezia Genitourinary: No Dysuria, No Frequency, No Incontinence, No Hematuria, No Retention, No Other Musculoskeletal: No: other, neck pain, shoulder pain, arm pain, back pain, hand pain, leg pain, foot pain Neurological: No: Weakness, Numbness, Incoordination, Change in speech, Confusion, Seizures, Other Allergies: Coded Allergies: Kiwi Extract (Verified Allergy, Severe, 08/15/23) Uncoded Allergies: KIWI (Allergy, Unknown, 05/05/21) Exam Vital Signs Vital Signs Date Time Temp Pulse Resp B/P (MAP) Pulse Ox O2 Delivery O2 Flow Rate FiO2 07/20/24 11:27 115 07/20/24 10:45 98.2 19 129/67 (87) 92 98.2 07/20/24 10:45 Room Air* 0 21 General Appearance: Alert, Oriented X3, Cooperative, No acute distress HEENT: Atraumatic, PERRLA, EOMI Respiratory: Clear to auscultation, Normal air movement Cardiovascular: Normal S1, Normal S2, No murmurs Abdominal: Soft, No hepatospenomegaly, No masses Extremities: No clubbing, No cyanosis, No edema, Normal pulses, No tenderness/swelling Skin: No rashes, No breakdown, No significant lesion Neuro: Normal gait, Normal speech, Strength at 5/5 X4 ext, Normal tone, Sensation intact Psych/Mental Status: Mental status NL, Mood NL Labs/Xrays Labs Test 07/20/24 09:47 Range/Units White Blood Count 21.3 H 4.4-10.8 10^3/uL Red Blood Count 5.20 4.5-5.90 10^6/uL Hemoglobin 6.7 *L 13.5-17.5 g/dL Hematocrit 26.7 L 41.0-53.0 % Mean Corpuscular Volume 51.4 L 80.0-100.0 fL Mean Corpuscular Hemoglobin 12.9 L 28.0-32.0 pg Mean Corpuscular Hemoglobin Concent 25.1 L 32.0-36.0 g/dL Red Cell Distribution Width 22.3 H 11.8-14.3 % Platelet Count 510 H 140-450 10^3/uL Mean Platelet Volume 8.0 6.9-10.8 fL Neutrophils (%) (Auto) 37.0-80.0 % Lymphocytes (%) (Auto) 10.0-50.0 % Monocytes (%) (Auto) 0.0-12.0 % Basophils (%) (Auto) 0.0-2.0 % Neutrophils # (Auto) 1.6-8.6 10 ^3/uL Lymphocytes # (Auto) 0.4-5.4 10 ^3/uL Monocytes # (Auto) 0-1.3 10 ^3/uL Differential Total Cells Counted 100.0 100 Neutrophils % (Manual) 90 H 37.0-80.0 Band Neutrophils % (Manual) 1 Lymphocytes % (Manual) 5 L 10.0-50.0 Monocytes % (Manual) 4 0-12 Eosinophils % (Manual) 0 0-7 Basophils % (Manual) 0 0.0-2.0 Metamyelocytes % (manual) 0 Myelocytes % (Manual) 0 Promyelocytes % (Manual) 0 Blast Cells % (Manual) 0 Nucleated Red Blood Cells 1.0 % Reactive Lymphocytes 0 Platelet Estimate Increased Large Platelets Few Giant Platelets Few Polychromasia Slight Hypochromasia (manual) Marked Anisocytosis (manual) Slight Microcytosis Marked Prothrombin Time 11.8 9.3-11.8 sec Prothrombin Time INR 1.13 0.9-1.15 Activated Partial Thromboplast Time 24.7 24.5-34.5 SEC Sodium Level 137 136-145 mmol/L Potassium Level 3.8 3.5-5.1 mmol/L Chloride Level 91 L 98-107 mmol/L Carbon Dioxide Level 38 H 20-31 mmol/L Anion Gap 8 5-15 Blood Urea Nitrogen 42 H 9-23 mg/dL Creatinine 2.76 H 0.700-1.30 mg/dL Glomerular Filtration Rate Calc 28 >90 mL/min BUN/Creatinine Ratio 15.2 10.0-20.0 Serum Glucose 163 H 74-106 mg/dL Calcium Level 9.8 8.7-10.4 mg/dL Total Bilirubin 1.1 H 0.2-1.0 mg/dL Aspartate Amino Transferase (AST) 15 13-40 U/L Alanine Aminotransferase (ALT) 20 7-40 U/L Alkaline Phosphatase 92 46-116 U/L Total Protein 8.2 5.7-8.2 g/dL Albumin 5.2 H 3.2-4.8 g/dL Assessment/Plan Assessment/Plan Assessment/Plan: Intractable abdominal pain rule out GI bleed Severe anemia Leukocytosis Elevated creatinine History of GERD History of ulcers Labs Protonix given ED IV antibiotics-ceftriaxone plus Zosyn Antiemetics Type and screen Transfuse PRBCs if hemoglobin less than 7.0 Pain management PT with INR PT/PTT Stool occult blood CT abdomen and pelvis A.m. 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 Ari [place] CONS 07/20/24 Transmitted -[place] 12:47 Stool Occult Blood LAB 07/20/24 Transmitted 12:47 Ceftriaxone Ivpb PHA 07/21/24 Transmitted Rocephin 09:00 Zosyn Extended PHA 07/20/24 Transmitted Infusion 14:00 Zosyn Extended PHA 07/20/24 Transmitted Infusion 13:00 Admit ADMIT 07/20/24 Transmitted 12:47 Allergies BROCK 07/20/24 Transmitted 12:47 Code Status CODE 07/20/24 Transmitted 12:47 0.9% Ns 1000 Ml PHA 07/20/24 Transmitted 13:00 Hydrocodone-Acet PHA 07/20/24 Transmitted 5/325mg Tab ([place] 13:00 Ondansetron Hcl PHA 07/20/24 Transmitted (Zofran) 13:00 Complete Blood Count LAB 07/21/24 Verified 04:00 Comprehensive LAB 07/21/24 Verified Metabolic Panel 04:00 Npo (Nothing By DIET 07/20/24 Transmitted Mouth) Diet Lunch Acetaminophen Tablet PHA 07/20/24 Transmitted (Tylenol Tablet) 13:00 Morphine Sulfate PHA 07/20/24 Transmitted Injection 13:00 Date of Service: Jul 20, 2024 Billing Provider: NELLY RIDDLE Common Visit Codes: [id number] INP/OBS CARE (HIGH) NELLY RIDDLE Jul 20, 2024 13:01
[2024-07-20] MEDS: SODIUM CHLORIDE 0.9% 1,000 ML IV SCH (13:19)
[2024-07-20] MEDS: PIPERACILLIN-TAZOB 3.375GM 100 ML IV ONE (13:22)
--- NOTE | 2024-07-20 13:22 | DVH ---
CT ABDOMEN AND PELVIS WITHOUT CONTRAST CLINICAL HISTORY: abd pain TECHNIQUE: Multiple contiguous axial images of the abdomen and pelvis without intravenous contrast. The images were reformatted degenerate coronal and sagittal reconstructions. All CT scans at this medical facility are performed using dose modulation techniques as appropriate t o a performed exam including the following:Automated exposure control was utilized; adjustment of the MA and/or KV according to patient size; and use of iterative reconstruction technique. Radiation Dose Information: CT Dose: CTDI volume is 10 mGy. Dose-length product is 553 mGy*cm Comparison: CT CT AB PEL WO CON-NO ORAL OR IV on DOS: 06/07/23, CT ABD PELVIS WO CONTRAST on DOS: 07/28 02/16 FINDINGS: Evaluation of the abdomen and pelvis is limited without intravenous contrast. There is a 7 mm calculus in the midpole of the left kidney. There is no right renal calculus. There is no hydronephrosis. There is no evidence of a ureteral calculus or hydroureter. The liver, gallbladder, pancreas, adrenal glands, and spleen appear within normal limits. There is no gross evidence of abdominal lymphadenopathy. There is no free fluid or free air. There is small hiatal hernia. The small and large bowel loops demonstrate normal caliber. There are diverticula in the sigmoid colon without evidence of acute diverticulitis. The abdominal aorta and IVC appear within normal limits. The bladder appears unremarkable for the degree of distention. Pelvic organ appears within normal dorman its. There is no gross evidence of a pelvic mass. There is no free fluid collection. Lung bases are clear. There is no acute osseous abnormality. There are multiple small metallic fragments in the left medical research tech olateral lower chest wall. IMPRESSION: 1. There is no acute process in the abdomen and pelvis. 2. 7 mm nonobstructive left renal calculus. 3. Sigmoid diverticulosis. HS:Y
[2024-07-20] MEDS ORDERED: PIPERACILLIN-TAZOB 3.375GM 100 ML IV SCH (14:00)
--- NOTE | 2024-07-20 16:51 | DVHINCON2 ---
Date of service: Jul 20, 2024 Referring Physician Kate Weeks, nurse practitioner Reason for Consultation Acute kidney injury History of Present Illness Patient is a 48-year-old male with a past medical history of microcytic anemia, Congestive heart failure, Asthma, GERD, and peptic ulcer disease is admitted for abdominal pain. 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 [employer] 06/09/23 Reported Medications Sucralfate (Sucralfate) 1 Gm Tab, 1 TAB PO QID 10/12/21 Current Medications Current Medications Medications (Trade) Dose Ordered Sig/Sandra Route PRN Reason Start Time Stop Time Status Last Admin Ceftriaxone Sodium 50 ml @ 100 mls/hr DAILY@09 IV 07/21/24 09:00 07/21/24 09:41 Piperacillin Sod/ Tazobactam Sod 100 ml @ 25 mls/hr Q8HR IV 07/20/24 14:00 07/20/24 18:12 DC Sodium Chloride 1,000 ml @ 70 mls/hr [id number] IV 07/20/24 13:00 07/21/24 03:18 Acetaminophen/ Hydrocodone Bitart ([place] 5/325MG Tab) 1 tab Q4HP PRN PO MODERATE PAIN (4-6 PAIN SCALE) 07/20/24 13:00 Ondansetron HCl (Zofran) 4 mg Q4HP PRN IV NAUSEA / VOMITING 07/20/24 13:00 07/20/24 22:43 Acetaminophen (Tylenol Tablet) 650 mg Q6HP PRN PO PAIN SCALE 1-3 OR TEMP>100.4 07/20/24 13:00 Morphine Sulfate 2 mg Q4HPRN PRN IV SEVERE PAIN (7-10 PAIN SCALE) 07/20/24 13:00 Pantoprazole Sodium (Protonix) 40 mg BID IV 07/20/24 22:00 Hold 07/21/24 09:41 Pantoprazole Sodium 50 ml @ 10 mls/hr Q5H IV 07/21/24 11:15 Family History: Diabetes mellitus G8 BROTHER G8 BROTHER FHx: liver cancer GRANDMOTHER, Onset:Unknown ( AT AGE 68) FHx: uterine cancer GRANDMOTHER (UNKNKONW AT AGE 30) Review of Systems All 12 item review of systems reviewed with the patient nonsignificant except what is mentioned in the history of present illness H&P Exam Vital Signs/I&O Vital Sign Date Time Temp Pulse Resp B/P (MAP) Pulse Ox O2 Delivery O2 Flow Rate FiO2 07/21/24 08:30 98.0 82 19 100/58 (72) 98 98.0 07/20/24 21:53 Room Air* 0 21 Intake and Output 07/20/24 07/21/24 19:00 07:00 Intake Total 1182 ml 260 ml Output Total 150 ml 950 ml Balance 1032 ml -690 ml Intake Oral 30 ml 120 ml IV Total 552 ml 140 ml Tube Feeding 0 ml Blood Product 600 ml Other 0 ml Output Urine Total 0 ml 950 ml Stool Total 0 ml Urine/Stool Mix 0 ml Gastric Drainage Total 0 ml Emesis 150 ml Chest Tube Drainage Total 0 ml Drainage Total 0 ml Other 0 ml Physical Exam Patient lying comfortably in bed Lungs clear to auscultation bilaterally Cardiac exam regular rate and rhythm GI epigastric tenderness normal Extremities no clubbing cyanosis or edema Neuro nonfocal Labs/Diagnostic Data Labs/Diagnostic Data Laboratory Tests Test 07/21/24 04:58 07/20/24 09:47 Range/Units White Blood Count 18.2 H 21.3 H 4.4-10.8 10^3/uL Red Blood Count 4.27 L 5.20 4.5-5.90 10^6/uL Hemoglobin 6.6 *L 6.7 *L 13.5-17.5 g/dL Hematocrit 24.0 #L 26.7 L 41.0-53.0 % Mean Corpuscular Volume 56.3 #L 51.4 L 80.0-100.0 fL Mean Corpuscular Hemoglobin 15.5 L 12.9 L 28.0-32.0 pg Mean Corpuscular Hemoglobin Concent 27.5 L 25.1 L 32.0-36.0 g/dL Red Cell Distribution Width 25.8 H 22.3 H 11.8-14.3 % Platelet Count 372 510 H 140-450 10^3/uL Mean Platelet Volume 8.0 8.0 6.9-10.8 fL Neutrophils (%) (Auto) 82.8 H 37.0-80.0 % Lymphocytes (%) (Auto) 10.2 10.0-50.0 % Monocytes (%) (Auto) 6.6 0.0-12.0 % Eosinophils (%) (Auto) 0.1 0.0-7.0 % Basophils (%) (Auto) 0.3 0.0-2.0 % Neutrophils # (Auto) 15.1 H 1.6-8.6 10 ^3/uL Lymphocytes # (Auto) 1.8 0.4-5.4 10 ^3/uL Monocytes # (Auto) 1.2 0-1.3 10 ^3/uL Eosinophils # (Auto) 0 0-0.8 10 ^3/uL Basophils # (Auto) 0.1 0-0.2 10 ^3/uL Nucleated Red Blood Cells 0.1 1.0 % Platelet Estimate Adequate Increased Hypochromasia (manual) Marked Marked Anisocytosis (manual) Moderate Slight Microcytosis Marked Marked Sodium Level 136 137 136-145 mmol/L Potassium Level 3.6 3.8 3.5-5.1 mmol/L Chloride Level 95 L 91 L 98-107 mmol/L Carbon Dioxide Level 33 H 38 H 20-31 mmol/L Anion Gap 8 8 5-15 Blood Urea Nitrogen 51 H 42 H 9-23 mg/dL Creatinine 3.09 H 2.76 H 0.700-1.30 mg/dL Glomerular Filtration Rate Calc >90 mL/min BUN/Creatinine Ratio 16.5 15.2 10.0-20.0 Serum Glucose 119 H 163 H 74-106 mg/dL Calcium Level 8.7 9.8 8.7-10.4 mg/dL Total Bilirubin 1.4 H 1.1 H 0.2-1.0 mg/dL Aspartate Amino Transferase (AST) < 8 L 15 13-40 U/L Alanine Aminotransferase (ALT) 11 20 7-40 U/L Alkaline Phosphatase 73 92 46-116 U/L Total Protein 6.8 8.2 5.7-8.2 g/dL Albumin 4.3 5.2 H 3.2-4.8 g/dL Differential Total Cells Counted 100.0 100 Neutrophils % (Manual) 90 H 37.0-80.0 Band Neutrophils % (Manual) 1 Lymphocytes % (Manual) 5 L 10.0-50.0 Monocytes % (Manual) 4 0-12 Eosinophils % (Manual) 0 0-7 Basophils % (Manual) 0 0.0-2.0 Metamyelocytes % (manual) 0 Myelocytes % (Manual) 0 Promyelocytes % (Manual) 0 Blast Cells % (Manual) 0 Reactive Lymphocytes 0 Large Platelets Few Giant Platelets Few Polychromasia Slight Prothrombin Time 11.8 9.3-11.8 sec Prothrombin Time INR 1.13 0.9-1.15 Activated Partial Thromboplast Time 24.7 24.5-34.5 SEC Phosphorus Level 5.0 2.4-5.1 mg/dL Magnesium Level 2.1 1.6-2.6 mg/dL Iron Level 13 L 65-175 ug/dL Total Iron Binding Capacity 433 H 250-425 ug/dL Percent Iron Saturation 3.0 L 20-55 % Ferritin 1.8 L 22-322 ng/mL Vitamin D 25-Hydroxy 15.2 L 30.0-100 ng/mL Parathyroid Hormone (Intact) 435.6 H 18.4-80.1 pg/mL Assessment Acute kidney injury superimposed Chronic Kidney Disease secondary hemodynamic mediated Precipitous drop in hemoglobin Iron deficiency anemia GI bleeding Congestive heart failure, ejection fraction 30% Metabolic alkalosis Left kidney 7 mm non obstructing stone REC: Closely monitor fluids and lytes Avoid nephrotoxins Strict I&O's Check UA, urine lytes and protein CT scan reported no obstruction PRBC transfusion prn GI consult Will continue to follow Patient seen and examined by myself. I discussed my plan of care with the patient and primary nurse at the bedside I would like to thank Kate for the consult, will follow Plan discussed with: Patient ANDERS SPENCE MD Jul 20, 2024 16:51
[2024-07-20 17:16] LABS: Magnesium 2.1 mg/dL (1.6-2.6)
--- NOTE | 2024-07-20 18:30 | DVHINCON2 ---
GI Consult Consult Note Date of Consultation: July 20, 2024 Chief Complaint: GI bleed Referring Physician: Micky Plascencia: The patient is a 48-year-old male with prior history of peptic ulcer disease on Carafate and Protonix, endoscopy last year in the previous year admitted with hematemesis. He denies any melena. Hemoglobin was 6. Patient denies any aspirin or NSAID use, denies any alcohol intake. He denies any fevers or chills, chest pain or shortness of breath. He denies dizziness or lightheadedness. GI consultation was obtained. Past Medical History: CABG Past Surgical History: GI bleed Social History: Social alcohol no tobacco or recreational drug use Family History: Grandmother with liver cancer Current Medications Medications (Trade) Dose Ordered Sig/Sandra Route PRN Reason Start Time Stop Time Status Last Admin Ceftriaxone Sodium 50 ml @ 100 mls/hr DAILY@09 IV 07/21/24 09:00 Piperacillin Sod/ Tazobactam Sod 100 ml @ 25 mls/hr Q8HR IV 07/20/24 14:00 07/20/24 18:12 DC Sodium Chloride 1,000 ml @ 70 mls/hr [id number] IV 07/20/24 13:00 07/20/24 13:19 Acetaminophen/ Hydrocodone Bitart ([place] 5/325MG Tab) 1 tab Q4HP PRN PO MODERATE PAIN (4-6 PAIN SCALE) 07/20/24 13:00 Ondansetron HCl (Zofran) 4 mg Q4HP PRN IV NAUSEA / VOMITING 07/20/24 13:00 Acetaminophen (Tylenol Tablet) 650 mg Q6HP PRN PO PAIN SCALE 1-3 OR TEMP>100.4 07/20/24 13:00 Morphine Sulfate 2 mg Q4HPRN PRN IV SEVERE PAIN (7-10 PAIN SCALE) 07/20/24 13:00 Pantoprazole Sodium (Protonix) 40 mg BID IV 07/20/24 22:00 Review of Systems: Constitutional: no fever, chill, weight loss HEENT: no eye pain, no hearing loss, no oral lesion, no scleral icterus Heart: no chest pain, no chest pressure Lung: no cough, no dyspnea with exertion Abdomen: see HPI : no pain with urination, normal appearing urine Musculoskeletal: no joint pain, no muscle pain Neurological: no seizure, no loss of sensation, no weakness in extremities Pysch: no depression, no anxiety Derm: no rash, no jaundice Vital Signs Date Time Temp Pulse Resp B/P (MAP) Pulse Ox O2 Delivery O2 Flow Rate FiO2 07/20/24 18:14 97.5 101 18 153/78 97.5 07/20/24 18:00 100 07/20/24 10:45 Room Air* 0 21 Physical exam: General: NAD, AAOX3 HEENT: PERRL, no scleral icterus, normal hearing, gums without lesions or bleeding, oropharynx clear without erythema or exudate. Neck: Supple without enlargement of the thyroid, or lymphadenopathy. Chest: Normal size and shape, no tenderness, lung brown clear to auscultation and percussion, nonlabored breathing. Heart: RRR, no murmur Abdomen: non-distended, no tenderness to palpation, +BS, no hepatosplenomegaly Extremities: no edema, no cyanosis Neurological: CN II-XII intact, sensation intact in all extremities, 5+ strength in all extremities, no asterixis Skin: No rashes, No jaundice Labs: Labs Test 07/20/24 09:47 Range/Units White Blood Count 21.3 H 4.4-10.8 10^3/uL Red Blood Count 5.20 4.5-5.90 10^6/uL Hemoglobin 6.7 *L 13.5-17.5 g/dL Hematocrit 26.7 L 41.0-53.0 % Mean Corpuscular Volume 51.4 L 80.0-100.0 fL Mean Corpuscular Hemoglobin 12.9 L 28.0-32.0 pg Mean Corpuscular Hemoglobin Concent 25.1 L 32.0-36.0 g/dL Red Cell Distribution Width 22.3 H 11.8-14.3 % Platelet Count 510 H 140-450 10^3/uL Mean Platelet Volume 8.0 6.9-10.8 fL Neutrophils (%) (Auto) 37.0-80.0 % Lymphocytes (%) (Auto) 10.0-50.0 % Monocytes (%) (Auto) 0.0-12.0 % Basophils (%) (Auto) 0.0-2.0 % Neutrophils # (Auto) 1.6-8.6 10 ^3/uL Lymphocytes # (Auto) 0.4-5.4 10 ^3/uL Monocytes # (Auto) 0-1.3 10 ^3/uL Differential Total Cells Counted 100.0 100 Neutrophils % (Manual) 90 H 37.0-80.0 Band Neutrophils % (Manual) 1 Lymphocytes % (Manual) 5 L 10.0-50.0 Monocytes % (Manual) 4 0-12 Eosinophils % (Manual) 0 0-7 Basophils % (Manual) 0 0.0-2.0 Metamyelocytes % (manual) 0 Myelocytes % (Manual) 0 Promyelocytes % (Manual) 0 Blast Cells % (Manual) 0 Nucleated Red Blood Cells 1.0 % Reactive Lymphocytes 0 Platelet Estimate Increased Large Platelets Few Giant Platelets Few Polychromasia Slight Hypochromasia (manual) Marked Anisocytosis (manual) Slight Microcytosis Marked Prothrombin Time 11.8 9.3-11.8 sec Prothrombin Time INR 1.13 0.9-1.15 Activated Partial Thromboplast Time 24.7 24.5-34.5 SEC Sodium Level 137 136-145 mmol/L Potassium Level 3.8 3.5-5.1 mmol/L Chloride Level 91 L 98-107 mmol/L Carbon Dioxide Level 38 H 20-31 mmol/L Anion Gap 8 5-15 Blood Urea Nitrogen 42 H 9-23 mg/dL Creatinine 2.76 H 0.700-1.30 mg/dL Glomerular Filtration Rate Calc 28 >90 mL/min BUN/Creatinine Ratio 15.2 10.0-20.0 Serum Glucose 163 H 74-106 mg/dL Calcium Level 9.8 8.7-10.4 mg/dL Phosphorus Level 5.0 2.4-5.1 mg/dL Magnesium Level 2.1 1.6-2.6 mg/dL Ferritin 1.8 L 22-322 ng/mL Total Bilirubin 1.1 H 0.2-1.0 mg/dL Aspartate Amino Transferase (AST) 15 13-40 U/L Alanine Aminotransferase (ALT) 20 7-40 U/L Alkaline Phosphatase 92 46-116 U/L Total Protein 8.2 5.7-8.2 g/dL Albumin 5.2 H 3.2-4.8 g/dL Vitamin D 25-Hydroxy 15.2 L 30.0-100 ng/mL Parathyroid Hormone (Intact) 435.6 H 18.4-80.1 pg/mL Imaging: No acute findings Sigmoid diverticulosis Assessment: 1. GI bleed 2. History of peptic ulcer disease 3. Symptomatic anemia Plan: 1. Continue with Protonix b.i.d. Consider IV drip if the patient can to use to have hematemesis 2. Follow H and H 3. Transfuse as needed 4. Ice chips for now but NPO after midnight 5. EGD tomorrow 6. Consider further workup for anemia with colonoscopy Date of Service: Jul 20, 2024 Billing Provider: SHAILESH PLAZA MD Common Visit Codes: [id number] INP/OBS CARE (HIGH) Consultation Codes: [id number] CONSULT <60MIN SHAILESH PLAZA MD Jul 20, 2024 18:30
[2024-07-20] MEDS: PANTOPRAZOLE 40 MG/10 ML VIAL INJ IV SCH (22:26)
[2024-07-20] MEDS: ONDANSETRON HCL 4 MG/2 ML VIAL IV PRN (22:43)
[2024-07-21] VITALS (12 sets, daily range): BP systolic 100–128; BP diastolic 57–81; PULSE 79–102; RESP 17–19; TEMP 97.4–99.2; O2SAT 93–100
[2024-07-21 05:54] LABS: Eosinophils # (auto) 0 10 ^3/uL (0-0.8); Monocytes # (auto) 1.2 10 ^3/uL (0-1.3)
[2024-07-21 05:55] LABS: Basophils # (auto) 0.1 10 ^3/uL (0-0.2); Basophils % (auto) 0.3 % (0.0-2.0); Eosinophils % (auto) 0.1 % (0.0-7.0); Lymphocytes # (auto) 1.8 10 ^3/uL (0.4-5.4); Lymphocytes % (auto) 10.2 % (10.0-50.0); Mean Corpuscular Hemoglobin 15.5 pg (28.0-32.0); Mean Corpuscular Hgb Conc. 27.5 g/dL (32.0-36.0); Mean Corpuscular Volume 56.3 fL (80.0-100.0); Monocytes % (auto) 6.6 % (0.0-12.0); Neutrophils # (auto) 15.1 10 ^3/uL (1.6-8.6); Neutrophils % (auto) 82.8 % (37.0-80.0); Nucleated Red Blood Cells % 0.1 %; Platelet Count (auto) 372 10^3/uL (140-450); Red Blood Cells 4.27 10^6/uL (4.5-5.90); Red Cell Distribution Width 25.8 % (11.8-14.3); White Blood Cell 18.2 10^3/uL (4.4-10.8)
[2024-07-21 05:56] LABS: Alanine Aminotransferase 11 U/L (7-40); Albumin 4.3 g/dL (3.2-4.8); Alkaline Phosphatase 73 U/L (46-116); Anion Gap 8 (5-15); BUN/Creatinine Ratio 16.5 (10.0-20.0); Calcium 8.7 mg/dL (8.7-10.4); Potassium 3.6 mmol/L (3.5-5.1); Total Protein 6.8 g/dL (5.7-8.2)
[2024-07-21 05:57] LABS: Aspartate Aminotransferase < 8 U/L (13-40); Bilirubin, Total 1.4 mg/dL (0.2-1.0); Blood Urea Nitrogen 51 mg/dL (9-23); Carbon Dioxide 33 mmol/L (20-31); Chloride 95 mmol/L (98-107); Glucose 119 mg/dL (74-106); Sodium 136 mmol/L (136-145)
[2024-07-21 05:59] LABS: Hemoglobin 6.6 g/dL (13.5-17.5)
[2024-07-21 06:32] LABS: Anisocytosis Moderate; Hypochromia Marked; Platelet Estimate Adequate
[2024-07-21] MEDS: cefTRIAXone 1GM/50ML D5W 50 ML IV SCH (09:41)
--- NOTE | 2024-07-21 11:47 | DVHPN2 ---
Progress Note Date Seen: Jul 21, 2024 Medical Necessity Reason Pt with a Central, PICC or Fol: No Subjective Review of Systems: GI:Abnormal Other Systems: Patient seen and examined by myself today in follow-up Objective vital signs Vital Sign Date Time Temp Pulse Resp B/P (MAP) Pulse Ox O2 Delivery O2 Flow Rate FiO2 07/21/24 08:30 98.0 82 19 100/58 (72) 98 98.0 07/20/24 21:53 Room Air* 0 21 Total Intake and Output 07/20/24 07/20/24 07/21/24 15:00 23:00 07:00 Intake Total 272 ml 1050 ml 120 ml Output Total 150 ml 950 ml Balance 272 ml 900 ml -830 ml medications Current Medications Medications Dose Ordered Sig/Sandra Route Start Time Stop Time Status Last Admin Dose Admin Ceftriaxone Sodium 50 ml @ 100 mls/hr DAILY@09 IV 07/21/24 09:00 07/21/24 09:41 100 MLS/HR Sodium Chloride 1,000 ml @ 70 mls/hr [id number] IV 07/20/24 13:00 07/21/24 03:18 70 MLS/HR Acetaminophen/ Hydrocodone Bitart 1 tab Q4HP PRN PO 07/20/24 13:00 Ondansetron HCl 4 mg Q4HP PRN IV 07/20/24 13:00 07/20/24 22:43 4 MG Acetaminophen 650 mg Q6HP PRN PO 07/20/24 13:00 Morphine Sulfate 2 mg Q4HPRN PRN IV 07/20/24 13:00 Pantoprazole Sodium 40 mg BID IV 07/20/24 22:00 Hold 07/21/24 09:41 40 MG Pantoprazole Sodium 50 ml @ 10 mls/hr Q5H IV 07/21/24 11:15 Examination: LUNGS:Normal, CVS:Normal, ABDOMEN:Abnormal, MSK:Normal laboratory and microbiology Laboratory Tests 07/21/24 04:58 Test 07/21/24 04:58 Range/Units Serum Glucose 119 H 74-106 mg/dL Problem List/Assessment/Plan Problem List/Assessment/Plan Acute kidney injury superimposed Chronic Kidney Disease secondary hemodynamic mediated Precipitous drop in hemoglobin Iron deficiency anemia GI bleeding Congestive heart failure, ejection fraction 30% Metabolic alkalosis Left kidney 7 mm non obstructing stone REC: Kidney function slightly worsened today Good urine output Strict I&O's Check UA, urine lytes and protein CT scan reported no obstruction PRBC transfusion prn GI consult Will continue to follow Plan discussed with: Patient My Orders My Orders Orders - ANDERS SPENCE MD Procedure Category Date Status Time Urine Sodium LAB 07/20/24 Logged 16:42 Urinalysis LAB 07/20/24 Logged 16:42 Urine LAB 07/20/24 Logged Protein/Creatinine 16:42 CC Plasma Assessment Blood Product Administration S: [id number] ANDERS SPENCE MD Jul 21, 2024 11:46
--- NOTE | 2024-07-21 12:48 | PRN ---
Misceleneous Note Note Note July 21, 2024 Subjective: Patient is nauseous however he has had no further episodes of bleeding. He denies melena or abdominal pain. He is tolerating a clear liquid diet. EGD was canceled today due hemoglobin remaining low despite 1 unit of transfusion of packed red blood cells Current Medications Medications (Trade) Dose Ordered Sig/Sandra Route PRN Reason Start Time Stop Time Status Last Admin Ceftriaxone Sodium 50 ml @ 100 mls/hr DAILY@09 IV 07/21/24 09:00 07/21/24 09:41 Piperacillin Sod/ Tazobactam Sod 100 ml @ 25 mls/hr Q8HR IV 07/20/24 14:00 07/20/24 18:12 DC Sodium Chloride 1,000 ml @ 70 mls/hr [id number] IV 07/20/24 13:00 07/21/24 03:18 Acetaminophen/ Hydrocodone Bitart ([place] 5/325MG Tab) 1 tab Q4HP PRN PO MODERATE PAIN (4-6 PAIN SCALE) 07/20/24 13:00 Ondansetron HCl (Zofran) 4 mg Q4HP PRN IV NAUSEA / VOMITING 07/20/24 13:00 07/20/24 22:43 Acetaminophen (Tylenol Tablet) 650 mg Q6HP PRN PO PAIN SCALE 1-3 OR TEMP>100.4 07/20/24 13:00 Morphine Sulfate 2 mg Q4HPRN PRN IV SEVERE PAIN (7-10 PAIN SCALE) 07/20/24 13:00 Pantoprazole Sodium (Protonix) 40 mg BID IV 07/20/24 22:00 Hold 07/21/24 09:41 Pantoprazole Sodium 50 ml @ 10 mls/hr Q5H IV 07/21/24 11:15 Vital Signs Date Time Temp Pulse Resp B/P (MAP) Pulse Ox O2 Delivery O2 Flow Rate FiO2 07/21/24 12:44 98.0 102 18 107/76 (86) 96 98.0 07/20/24 21:53 Room Air* 0 21 Physical exam: Alert and oriented x4 no distress Regular rate and rhythm Soft nontender nondistended abdomen No clubbing cyanosis or edema Labs Test 07/21/24 04:58 07/20/24 09:47 Range/Units White Blood Count 18.2 H 4.4-10.8 10^3/uL Red Blood Count 4.27 L 4.5-5.90 10^6/uL Hemoglobin 6.6 *L 13.5-17.5 g/dL Hematocrit 24.0 #L 41.0-53.0 % Mean Corpuscular Volume 56.3 #L 80.0-100.0 fL Mean Corpuscular Hemoglobin 15.5 L 28.0-32.0 pg Mean Corpuscular Hemoglobin Concent 27.5 L 32.0-36.0 g/dL Red Cell Distribution Width 25.8 H 11.8-14.3 % Platelet Count 372 140-450 10^3/uL Mean Platelet Volume 8.0 6.9-10.8 fL Neutrophils (%) (Auto) 82.8 H 37.0-80.0 % Lymphocytes (%) (Auto) 10.2 10.0-50.0 % Monocytes (%) (Auto) 6.6 0.0-12.0 % Eosinophils (%) (Auto) 0.1 0.0-7.0 % Basophils (%) (Auto) 0.3 0.0-2.0 % Neutrophils # (Auto) 15.1 H 1.6-8.6 10 ^3/uL Lymphocytes # (Auto) 1.8 0.4-5.4 10 ^3/uL Monocytes # (Auto) 1.2 0-1.3 10 ^3/uL Eosinophils # (Auto) 0 0-0.8 10 ^3/uL Basophils # (Auto) 0.1 0-0.2 10 ^3/uL Nucleated Red Blood Cells 0.1 % Platelet Estimate Adequate Hypochromasia (manual) Marked Anisocytosis (manual) Moderate Microcytosis Marked Sodium Level 136 136-145 mmol/L Potassium Level 3.6 3.5-5.1 mmol/L Chloride Level 95 L 98-107 mmol/L Carbon Dioxide Level 33 H 20-31 mmol/L Anion Gap 8 5-15 Blood Urea Nitrogen 51 H 9-23 mg/dL Creatinine 3.09 H 0.700-1.30 mg/dL Glomerular Filtration Rate Calc 24 >90 mL/min BUN/Creatinine Ratio 16.5 10.0-20.0 Serum Glucose 119 H 74-106 mg/dL Calcium Level 8.7 8.7-10.4 mg/dL Total Bilirubin 1.4 H 0.2-1.0 mg/dL Aspartate Amino Transferase (AST) < 8 L 13-40 U/L Alanine Aminotransferase (ALT) 11 7-40 U/L Alkaline Phosphatase 73 46-116 U/L Total Protein 6.8 5.7-8.2 g/dL Albumin 4.3 3.2-4.8 g/dL Differential Total Cells Counted 100.0 100 Neutrophils % (Manual) 90 H 37.0-80.0 Band Neutrophils % (Manual) 1 Lymphocytes % (Manual) 5 L 10.0-50.0 Monocytes % (Manual) 4 0-12 Eosinophils % (Manual) 0 0-7 Basophils % (Manual) 0 0.0-2.0 Metamyelocytes % (manual) 0 Myelocytes % (Manual) 0 Promyelocytes % (Manual) 0 Blast Cells % (Manual) 0 Reactive Lymphocytes 0 Large Platelets Few Giant Platelets Few Polychromasia Slight Prothrombin Time 11.8 9.3-11.8 sec Prothrombin Time INR 1.13 0.9-1.15 Activated Partial Thromboplast Time 24.7 24.5-34.5 SEC Phosphorus Level 5.0 2.4-5.1 mg/dL Magnesium Level 2.1 1.6-2.6 mg/dL Iron Level 13 L 65-175 ug/dL Total Iron Binding Capacity 433 H 250-425 ug/dL Percent Iron Saturation 3.0 L 20-55 % Ferritin 1.8 L 22-322 ng/mL Vitamin D 25-Hydroxy 15.2 L 30.0-100 ng/mL Parathyroid Hormone (Intact) 435.6 H 18.4-80.1 pg/mL Assessment: 1. GI bleed 2. History of peptic ulcer disease 3. Symptomatic anemia Plan: 1. Continue with Protonix but switch to Protonix drip 2. Follow H and H 3. Transfuse as needed to keep hemoglobin above eight 4. Clear liquid diet and NPO after midnight 5. EGD tomorrow 6. Consider further workup for anemia with colonoscopy SHAILESH PLAZA MD Jul 21, 2024 12:48
[2024-07-21] MEDS: PANTOPRAZOLE 40mg/50ML NS AE 50 ML IV SCH (15:00)
[2024-07-21 19:23] LABS: Basophils # (auto) 0.1 10 ^3/uL (0-0.2); Eosinophils # (auto) 0 10 ^3/uL (0-0.8); Lymphocytes # (auto) 1.5 10 ^3/uL (0.4-5.4); Monocytes # (auto) 0.8 10 ^3/uL (0-1.3); Nucleated Red Blood Cells % 0.2 %; Red Blood Cells 4.41 10^6/uL (4.5-5.90)
[2024-07-21 19:25] LABS: Basophils % (auto) 0.7 % (0.0-2.0); Eosinophils % (auto) 0.3 % (0.0-7.0); Hematocrit 26.5 % (41.0-53.0); Hemoglobin 7.4 g/dL (13.5-17.5); Lymphocytes % (auto) 13.5 % (10.0-50.0); Mean Corpuscular Hemoglobin 16.9 pg (28.0-32.0); Mean Corpuscular Hgb Conc. 28.1 g/dL (32.0-36.0); Mean Corpuscular Volume 60.1 fL (80.0-100.0); Monocytes % (auto) 7.2 % (0.0-12.0); Neutrophils # (auto) 8.7 10 ^3/uL (1.6-8.6); Neutrophils % (auto) 78.3 % (37.0-80.0); Platelet Count (auto) 325 10^3/uL (140-450); White Blood Cell 11.1 10^3/uL (4.4-10.8)
[2024-07-21 19:31] LABS: Red Cell Distribution Width 32.9 % (11.8-14.3)
[2024-07-21] MEDS: HYDROcodone-ACET 5/325MG TAB PO PRN (21:34)
--- NOTE | 2024-07-21 23:12 | DVHPN2 ---
Subjective Patient is seen and examined at bedside. Very tired. Reviewed: Care Plan, H&P, Labs, Medications, Previous Orders, Radiology Changes from previous H/P or p: No Changes Eyes: No Pain, No Vision change, No Conjunctivae inflammation, No Eyelid inflammation, No Other, No Redness ENT: No Ear pain, No Ear discharge, No Nose pain, No Nose discharge, No Nose congestion, No Mouth pain, No Mouth swelling, No Throat pain, No Throat swelling, No Other Cardiovascular: No Chest Pain, No Palpitations, No Orthopnea, No Paroxysmal Noc. Dyspnea, No Edema, No Lt Headedness, No Other Respiratory: No Cough, No Dry, No Shortness of breath, No SOB with excertion, No Wheezing, No Hemoptysis, No Pleuritic Pain, No Sputum, No Other Gastrointestinal: Nausea, Vomiting, Abdominal Pain; No Diarrhea, No Constipation, No Melena, No Hematochezia; Other (Hematemesis) Genitourinary: No Dysuria, No Frequency, No Incontinence, No Hematuria, No Retention, No Other Musculoskeletal: No other, No neck pain, No shoulder pain, No arm pain, No back pain, No hand pain, No leg pain, No foot pain Objective Vitals Vital Signs Date Time Temp Pulse Resp B/P (MAP) Pulse Ox O2 Delivery O2 Flow Rate FiO2 07/21/24 22:59 99.2 96 19 106/57 99.2 07/21/24 21:00 100 07/21/24 20:00 Nasal Cannula* 2 28 Intake/Output Intake and Output 07/21/24 07:00 Intake Total 1442 ml Output Total 1100 ml Balance 342 ml Intake Oral 150 ml IV Total 692 ml Tube Feeding 0 ml Blood Product 600 ml Other 0 ml Output Urine Total 950 ml Stool Total 0 ml Urine/Stool Mix 0 ml Gastric Drainage Total 0 ml Emesis 150 ml Chest Tube Drainage Total 0 ml Drainage Total 0 ml Other 0 ml General Appearance: Alert, Oriented X3, Cooperative, No acute distress HEENT: Atraumatic, PERRLA, EOMI, Mucous membr. moist/pink Neck: Supple Lungs: Clear to auscultation, Normal air movement Cardiovascular: Regular rate, Normal S1, Normal S2, No murmurs, Gallops, Rubs Abdomen: Normal bowel sounds, Soft, No tenderness Neuro: Strength at 5/5 X4 ext Psych/Mental Status: Mental status NL Medications Current Medications Medications Dose Ordered Sig/Sandra Route Start Time Stop Time Status Last Admin Dose Admin Ceftriaxone Sodium 50 ml @ 100 mls/hr DAILY@09 IV 07/21/24 09:00 07/21/24 09:41 100 MLS/HR Sodium Chloride 1,000 ml @ 70 mls/hr [id number] IV 07/20/24 13:00 07/21/24 03:18 70 MLS/HR Acetaminophen/ Hydrocodone Bitart 1 tab Q4HP PRN PO 07/20/24 13:00 07/21/24 21:34 1 TAB Ondansetron HCl 4 mg Q4HP PRN IV 07/20/24 13:00 07/20/24 22:43 4 MG Acetaminophen 650 mg Q6HP PRN PO 07/20/24 13:00 Morphine Sulfate 2 mg Q4HPRN PRN IV 07/20/24 13:00 Pantoprazole Sodium 40 mg BID IV 07/20/24 22:00 Hold 07/21/24 09:41 40 MG Pantoprazole Sodium 50 ml @ 10 mls/hr Q5H IV 07/21/24 11:15 07/21/24 21:33 10 MLS/HR Laboratory Results Laboratory Tests 07/21/24 04:58 07/21/24 18:38 Chemistry Test 07/21/24 04:58 Albumin 4.3 g/dL (3.2-4.8) Calcium Level 8.7 mg/dL (8.7-10.4) Total Protein 6.8 g/dL (5.7-8.2) LFT Test 07/21/24 04:58 Alanine Aminotransferase (ALT) 11 U/L (7-40) Alkaline Phosphatase 73 U/L (46-116) Aspartate Amino Transferase (AST) < 8 U/L (13-40) L Total Bilirubin 1.4 mg/dL (0.2-1.0) H Labs and/or images reviewed: Labs reviewed by me Assessment/Plan Assessment/Plan Intractable abdominal pain rule out GI bleed Severe anemia Leukocytosis Elevated creatinine History of GERD History of ulcers History of CABG at 3 years old Plan: Continuing current management. Continuing with IV antibiotic Rocephin and Zosyn Continuing with IV Zofran p.r.n. for nausea and vomiting Continuing with IV Protonix Continuing to keep NPO for now until GI specialist to see the patient. Continuing to monitor hemoglobin. Transfuse if hemoglobin less than seven Waiting for GI specialist to see the patient We will follow up with urine drug screen Appreciated Nephrology input This medical document was created using an electronic medical record system with [employer] direct computerized dictation system. Although this document has been carefully reviewed, there may still be some phonetic and typographical errors. These areas are purely typographical due to imperfections of the software programs, and do not reflect any compromise in the patient's medical care. Plan discussed with: Patient Date of Service: Jul 21, 2024 Billing Provider: MARCOS RAMIREZ MD Common Visit Codes: [id number] INP/OBS CARE(HIGH) MARCOS RAMIREZ MD Jul 21, 2024 23:12
[2024-07-22] VITALS (9 sets, daily range): BP systolic 97–132; BP diastolic 64–84; PULSE 63–96; RESP 16–20; TEMP 97.5–98.7; O2SAT 97–100
[2024-07-22] MEDS ORDERED: MIDAZOLAM HCL 2MG/2ML 2ml VIAL (1mg/ml) ONE (08:19)
[2024-07-22] MEDS ORDERED: GLYCOPYRROLATE 0.2 MG/ML 1ML VIAL ONE (08:19)
[2024-07-22] MEDS ORDERED: fentaNYL CITRATE 100 MCG/2 ML VL ONE (08:19)
[2024-07-22] MEDS ORDERED: LIDOCAINE 2% (LOCAL ANESTH.) PF 5ml SDV ONE (08:19)
[2024-07-22] MEDS ORDERED: PROPOFOL 10 MG/ML 20 ML IV ONE (08:19)
[2024-07-22] MEDS ORDERED: ONDANSETRON HCL 4 MG/2 ML VIAL ONE (08:19)
--- NOTE | 2024-07-22 08:57 | DVHNC2 ---
Procedure - July 22, 2024 Surgeon: Dr. Plaza Procedure performed: Esophageal gastroduodenoscopy with anesthesia Preprocedure diagnosis: 1. GI bleed 2. History of peptic ulcer disease Postprocedure diagnosis: 1. Severe erosive esophagitis with ulceration and inflammation from the mid to distal esophagus 2. Mild gastritis 3. Normal duodenum to the 3rd portion Indications for procedure: Patient was admitted with GI bleed. He has a history of prior GI bleeding. Patient has been on Carafate and Protonix Medications use: Per Dr. Darling anesthesia Details of the procedure: Informed consent was obtained after risks, benefits, and alternatives, were discussed at length with the patient. Consent was given for the procedures was a medication used for anesthesia. The patient was placed in the left lateral decubitus position. An Olympus endoscope was inserted into the oropharynx and advanced into the esophagus, then into the stomach then to t he 3rd portion of the duodenum. The scope was then withdrawn and the mucosa carefully evaluated. The patient had no findings in the duodenum. The scope was then withdrawn the stomach showed mild gastritis in the proximal portion. There was no evidence of ulcers, old blood or fresh blood seen. The scope was then withdrawn. Patient had inflammation at the GE junction at 38 cm. Patient had ulceration in the mid esophagus with severe inflammation from the mid to distal esophagus with erythema, erosions, and friable mucosa. No biopsies were taken. The scope was then withdrawn and procedure completed. The patient tolerated the procedure well Impression: Severe erosive esophagitis likely cause of recurrent GI bleeding, ulceration in the mid to distal esophagus Mild gastritis Recommendations: 1. Elevate head of bed, anti-reflux precautions avoid spicy food, caffeine, aspirin, NSAIDs, tobacco, alcohol 2. Proton pump inhibitor twice daily and Carafate 3 times a day 3. Repeat EGD to ensure healing in two months 4. Cardiac workup for patient's underlying cardiac disease, history of low ejection fraction and he did not follow up with the clam grower, history of congenital heart defect 5. Diet as tolerated 6. Follow H&H and transfuse 7. Outpatient follow up with GI 8. Iron supplementation at discharge. SHAILESH PLAZA MD Jul 22, 2024 08:57
[2024-07-22] MEDS ORDERED: HYDROmorphone HCL 2 MG/ML VL/or syr IV PRN (09:00)
--- NOTE | 2024-07-22 11:27 | DVHPN2 ---
Progress Note Date Seen: Jul 22, 2024 Medical Necessity Reason Pt with a Central, PICC or Fol: No Subjective Patient reports: No new complaints Other Systems: Patient seen and examined by myself today in follow-up Objective vital signs Vital Sign Date Time Temp Pulse Resp B/P (MAP) Pulse Ox O2 Delivery O2 Flow Rate FiO2 07/22/24 09:00 76 16 103/67 (79) 100 07/22/24 08:45 Room Air 07/22/24 08:45 97.6 97.6 07/21/24 20:00 2 28 Total Intake and Output 07/21/24 07/21/24 07/22/24 15:00 23:00 07:00 Intake Total 350 ml 120 ml 1215 ml Output Total 1000 ml 1200 ml Balance 350 ml -880 ml 15 ml medications Current Medications Medications Dose Ordered Sig/Sandra Route Start Time Stop Time Status Last Admin Dose Admin Ceftriaxone Sodium 50 ml @ 100 mls/hr DAILY@09 IV 07/21/24 09:00 07/22/24 10:12 100 MLS/HR Sodium Chloride 1,000 ml @ 70 mls/hr [id number] IV 07/20/24 13:00 07/21/24 03:18 70 MLS/HR Acetaminophen/ Hydrocodone Bitart 1 tab Q4HP PRN PO 07/20/24 13:00 07/21/24 21:34 1 TAB Ondansetron HCl 4 mg Q4HP PRN IV 07/20/24 13:00 07/20/24 22:43 4 MG Acetaminophen 650 mg Q6HP PRN PO 07/20/24 13:00 Morphine Sulfate 2 mg Q4HPRN PRN IV 07/20/24 13:00 Pantoprazole Sodium 40 mg BID IV 07/20/24 22:00 Hold 07/21/24 09:41 40 MG Pantoprazole Sodium 50 ml @ 10 mls/hr Q5H IV 07/21/24 11:15 07/22/24 10:11 10 MLS/HR Examination: LUNGS:Normal, CVS:Normal, MSK:Normal laboratory and microbiology Laboratory Tests 07/22/24 03:20 07/21/24 18:38 07/21/24 04:58 Test 07/21/24 04:58 Range/Units Serum Glucose 119 H 74-106 mg/dL Problem List/Assessment/Plan Problem List/Assessment/Plan Acute kidney injury superimposed Chronic Kidney Disease secondary hemodynamic mediated Precipitous drop in hemoglobin Iron deficiency anemia GI bleeding Congestive heart failure, ejection fraction 30% Metabolic alkalosis Left kidney 7 mm non obstructing stone REC: Kidney function stabilize Chronic Kidney Disease stage 4 Good urine output Strict I&O's Check UA, urine lytes and protein --> pending CT scan reported no obstruction PRBC transfusion prn GI consult Refer to my clinic two weeks after discharge for Chronic Kidney Disease follow- up Plan discussed with: Patient CC Plasma Assessment Blood Product Administration S: 1200 ANDERS SPENCE MD Jul 22, 2024 11:26
--- NOTE | 2024-07-22 13:27 | DVHSR ---
APPROVED REPORT EXAM: Two-dimensional and M-mode echocardiogram with Doppler and color Doppler. Blood Pressure: 103/67 mmHg INDICATION Evaluate Cardiac Function RISK FACTORS Height: 5' 8", Weight: 199 DIMENSIONS LVDd5.5 (3.8-5.7cm)LA (2D)4.5 (1.9-4.0cm)Aortic Root3.3 (2.0-3.7cm) LVDs4.2 (2.5-4.0cm)LA (MM) (1.9-4.0cm)Aortic Cusp Exc2.1 (1.5-2.0cm) EF (%) 55.0 (55-70%)Rt. Atrium4.6 (1.9-4.0cm)Asc. Aorta cm IVSd1.0 (0.7-1.1cm)RV (D) (1.8-2.4cm) PWd1.0 (0.7-1.1cm) Mitral Valve MitralMitral Stenosis E wave1.00m/sMV Mean GR.mmHg A wave1.20m/sMV Peak GR.mmHg E/A ratio0.82D MVAcm2 Aortic Valve Aortic ValveAortic Stenosis V10.80m/Cathi Mean GR.7mmHg V22.00m/Cathi Peak GR.17mmHg LVOT Diameter2.4 (1.8-2.4cm)Doppler AVA1.81cm2 Pulmonic Valve V21.00m/s Tricuspid Valve TR Velocity3.10m/s [id number] LEFT VENTRICLE The left ventricle is of normal size. Wall thickness is normal. Ejection fraction is normal and is estimated at 55%. There is no gross wall motion abnormalities. There is grade II diastolic dysfunct ion. E to E prime ratio is suggestive of elevated left-sided filling pressure. RIGHT VENTRICLE The right ventricle is [id number] dilated in size. Systolic function is normal. ATRIA The left atrium is moderately dilated in size. Right atrium is mildly dilated in size. Intra-atrial septum is not well visualized. MITRAL VALVE Normal structure and function. No significant mitral regurgitation. PULMONIC VALVE Likely normal. TRICUSPID VALVE Normal structure and function. There is mild tricuspid regurgitation. PA systolic pressure is estim ated at 50-55 mm Hg. AORTIC VALVE Normal in structure and function. GREAT VESSELS The aortic root is of normal size. Proximal ascending aorta isn't well visualized. PERICARDIAL EFFUSION No significant pericardial effusion. IVC isn't visualized. Conclusion Normal left ventricular size and systolic function. Ejection fraction is estimated at 50-55%. Grade II diastolic dysfunction. Dilated right ventricle with a preserved systolic function. No hemodynamically significant valvular disease. PA systolic pressure is estimated at 50-55 mm Hg.
--- NOTE | 2024-07-22 13:34 | DVHINCON2 ---
Date Seen: Jul 22, 2024 Referring Physician MD Dago Reason for Consultation History of congenital heart disease, last EF less than 30% in 2020 History of Present Illness This is a 48-year-old male patient who presents to the emergency room with chief complaint of abdominal pain for one day prior to emergency room arrival. He came to the emergency room for further evaluation. He was found with a hemoglobin level of 6.7g/dL. Patient underwent a esophageal gastroduodenoscopy which found severe erosive esophagitis with ulceration from the mid to distal esophagus. Cardiology has now been consulted for patient's previous history of CHF as well as congenital heart disease. No twelve lead electrocardiogram seen in patient's hard chart. A twelve lead electrocardiogram was obtained at time of assessment and reveals normal sinus rhythm without any significant ST segment changes. The patient denies any cardiac symptoms during this admission. Significant past medical history includes congestive heart failure, unspecified congenital heart disease status post surgical repair (likely PFO/ASD repair), peptic ulcer disease, anemia, amphetamine abuse and obesity. Past Medical History Past medical history reviewed. No other significant than mentioned above. Past Surgical History unspecified congenital heart disease status post surgical repair (likely PFO/ASD repair) Family History: Diabetes mellitus G8 BROTHER G8 BROTHER FHx: liver cancer GRANDMOTHER, Onset:Unknown ( AT AGE 68) FHx: uterine cancer GRANDMOTHER (UNKNKONW AT AGE 30) Family History Family history reviewed. Social History Patient denies the use of tobacco, alcohol or illicit drugs. Previous toxicology screens from this facility reveal positive for amphetamines on multiple occasions Allergies: Coded Allergies: Kiwi Extract (Verified Allergy, Severe, 08/15/23) Uncoded Allergies: KIWI (Allergy, Unknown, 05/05/21) Home Meds Active Scripts Pantoprazole Sodium Sesquihydr (Protonix) 40 Mg Tab, 40 MG PO BID, #60 TAB Prov:ERIKAEVIE GIRARDANAT [facility] RADIOGRAPHER ANGIOGRAM 06/09/23 Reported Medications Sucralfate (Sucralfate) 1 Gm Tab, 1 TAB PO QID 10/12/21 Home Meds Home medications reviewed. Current Medications Current Medications Medications (Trade) Dose Ordered Sig/Sandra Route PRN Reason Start Time Stop Time Status Last Admin Hydromorphone HCl (Dilaudid Injection) 0.5 mg Q10M PRN IV SEVERE PAIN (7-10 PAIN SCALE) 07/22/24 09:00 07/22/24 09:41 DC Review of Systems Constitutional: No symptom reported Ears, Nose, & Throat: No symptom reported Eyes: No symptom reported Neurological: No symptoms reported Pulmonary/Respiratory: No symptoms reported Cardiovascular: No symptom reported Gastrointestinal: Abdominal pain Genitourinary: No symptom reported Musculoskeletal: No symptom reported Skin: No symptom reported Psychiatric: No symptom reported Endocrine: No symptom reported Hematologic/Lymphatic: No symptom reported Vital Signs Vital Signs Date Time Temp Pulse Resp B/P (MAP) Pulse Ox O2 Delivery O2 Flow Rate FiO2 07/22/24 09:48 98.2 85 17 105/64 (78) 100 98.2 07/22/24 08:45 Room Air 07/21/24 20:00 2 28 Physical Exam General Appearance: Cooperative. Morbidly obese Pulmonary/Respiratory: Clear, bilateral breaths sounds. Cardiovascular/Chest: Regular rate and rhythm. Peripheral Pulses: 2+ Radial (R). 2+ Radial (L). 2+ Pedal (R). 2+ Pedal (L) Abdominal Exam: Normal bowel sounds. Ankle Exam: Negative ankle edema Lower extremities: Negative lower extremity edema Neuro/Mental Status: A/OX4, coherent. Thoughts/Psych: Normal thought pattern. Appropriate mood and affect. Good judgment and insight. Appearance: No acute distress. Skin Exam: Normal inspection. Normal color. Warm and dry. Labs/Diagnostic Data Labs Test 07/22/24 03:20 07/21/24 18:38 07/21/24 04:58 07/20/24 09:47 Range/Units Hemoglobin 8.0 L 13.5-17.5 g/dL White Blood Count 11.1 #H 4.4-10.8 10^3/uL Red Blood Count 4.41 L 4.5-5.90 10^6/uL Hematocrit 26.5 #L 41.0-53.0 % Mean Corpuscular Volume 60.1 #L 80.0-100.0 fL Mean Corpuscular Hemoglobin 16.9 L 28.0-32.0 pg Mean Corpuscular Hemoglobin Concent 28.1 L 32.0-36.0 g/dL Red Cell Distribution Width 32.9 H 11.8-14.3 % Platelet Count 325 140-450 10^3/uL Mean Platelet Volume 7.9 6.9-10.8 fL Neutrophils (%) (Auto) 78.3 37.0-80.0 % Lymphocytes (%) (Auto) 13.5 10.0-50.0 % Monocytes (%) (Auto) 7.2 0.0-12.0 % Eosinophils (%) (Auto) 0.3 0.0-7.0 % Basophils (%) (Auto) 0.7 0.0-2.0 % Neutrophils # (Auto) 8.7 H 1.6-8.6 10 ^3/uL Lymphocytes # (Auto) 1.5 0.4-5.4 10 ^3/uL Monocytes # (Auto) 0.8 0-1.3 10 ^3/uL Eosinophils # (Auto) 0 0-0.8 10 ^3/uL Basophils # (Auto) 0.1 0-0.2 10 ^3/uL Nucleated Red Blood Cells 0.2 % Platelet Estimate Adequate Hypochromasia (manual) Marked Anisocytosis (manual) Moderate Microcytosis Marked Sodium Level 136 136-145 mmol/L Potassium Level 3.6 3.5-5.1 mmol/L Chloride Level 95 L 98-107 mmol/L Carbon Dioxide Level 33 H 20-31 mmol/L Anion Gap 8 5-15 Blood Urea Nitrogen 51 H 9-23 mg/dL Creatinine 3.09 H 0.700-1.30 mg/dL Glomerular Filtration Rate Calc 24 >90 mL/min BUN/Creatinine Ratio 16.5 10.0-20.0 Serum Glucose 119 H 74-106 mg/dL Calcium Level 8.7 8.7-10.4 mg/dL Total Bilirubin 1.4 H 0.2-1.0 mg/dL Aspartate Amino Transferase (AST) < 8 L 13-40 U/L Alanine Aminotransferase (ALT) 11 7-40 U/L Alkaline Phosphatase 73 46-116 U/L Total Protein 6.8 5.7-8.2 g/dL Albumin 4.3 3.2-4.8 g/dL Differential Total Cells Counted 100.0 100 Neutrophils % (Manual) 90 H 37.0-80.0 Band Neutrophils % (Manual) 1 Lymphocytes % (Manual) 5 L 10.0-50.0 Monocytes % (Manual) 4 0-12 Eosinophils % (Manual) 0 0-7 Basophils % (Manual) 0 0.0-2.0 Metamyelocytes % (manual) 0 Myelocytes % (Manual) 0 Promyelocytes % (Manual) 0 Blast Cells % (Manual) 0 Reactive Lymphocytes 0 Large Platelets Few Giant Platelets Few Polychromasia Slight Prothrombin Time 11.8 9.3-11.8 sec Prothrombin Time INR 1.13 0.9-1.15 Activated Partial Thromboplast Time 24.7 24.5-34.5 SEC Phosphorus Level 5.0 2.4-5.1 mg/dL Magnesium Level 2.1 1.6-2.6 mg/dL Iron Level 13 L 65-175 ug/dL Total Iron Binding Capacity 433 H 250-425 ug/dL Percent Iron Saturation 3.0 L 20-55 % Ferritin 1.8 L 22-322 ng/mL Vitamin D 25-Hydroxy 15.2 L 30.0-100 ng/mL Parathyroid Hormone (Intact) 435.6 H 18.4-80.1 pg/mL Assessment Chronic HFimEF, NYHA class II (EF of 50-55%. A previous echocardiogram from 05/07/2021 revealed an EF of less than 30%) Congenital heart defect status post surgical repair Peptic ulcer disease Anemia Chronic kidney disease History of amphetamine use Obesity Plan/Recommendation We will continue with the following plan/recommendations (Dr. Lizarraga): A transthoracic echocardiogram reveals an EF of 50-55%, RVSP 50-55 mmHg. A previous echocardiogram from 05/07/2021 revealed an EF of less than 30%. Patient seen and examined at bedside with . The patient claims to never have followed up with a microsoft application developer and does not take any GDMT. He denie s any cardiac symptoms during this admission. There is no further inpatient cardiac workup indicated at this time. We will recommend for the patient to establish an outpatient microsoft application developer and follow up in the outpatient setting within 1-2 weeks post discharge. Thank you for allowing us to care for this patient. Please call with any questions or concerns. Critical care time spent: 42 minutes This medical document was created using an electronic medical record system with voice recognition software and computerized dictation system. Although this document has been carefully reviewed, there might still be some phonetic and typographical errors. Occasional wrong-word or ``sound-alike substitutions may have occurred due to the inherent limitations of voice recognition software. These areas are purely typographical due to imperfections of the software programs and do not reflect any compromise in the patient's medical care. Please read the chart carefully and recognize, using context, where these substitutions have occurred. Plan discussed with: Patient NYHA Physical activity limitations: Class2(Slight)fatigue,sob (palpitatns, angina w activityv) Date of Service: Jul 22, 2024 Billing Provider: GEORGINA LIZARRAGA MD Cardiology Common Codes: 65097-[id number] INP/OBS CARE (High) Cardiology Consultation Codes: [id number] CONSULT <45MIN ANDRE COLLINS Jul 22, 2024 13:34
[2024-07-22] MEDS: PANTOPRAZOLE 40mg/50ML NS AE 50 ML IV SCH (16:55)
--- NOTE | 2024-07-22 20:07 | DVHPN2 ---
Subjective The patient is seen and examined at bedside. No complaint today. No melena, no bright red blood per rectum. Waiting for EGD today Reviewed: Care Plan, H&P, Labs, Medications, Previous Orders, Radiology Changes from previous H/P or p: No Changes Eyes: No Pain, No Vision change, No Conjunctivae inflammation, No Eyelid inflammation, No Other, No Redness ENT: No Ear pain, No Ear discharge, No Nose pain, No Nose discharge, No Nose congestion, No Mouth pain, No Mouth swelling, No Throat pain, No Throat swelling, No Other Cardiovascular: No Chest Pain, No Palpitations, No Orthopnea, No Paroxysmal Noc. Dyspnea, No Edema, No Lt Headedness, No Other Respiratory: No Cough, No Dry, No Shortness of breath, No SOB with excertion, No Wheezing, No Hemoptysis, No Pleuritic Pain, No Sputum, No Other Gastrointestinal: Nausea, Vomiting, Abdominal Pain; No Diarrhea, No Constipation, No Melena, No Hematochezia; Other (Hematemesis) Genitourinary: No Dysuria, No Frequency, No Incontinence, No Hematuria, No Retention, No Other Musculoskeletal: No other, No neck pain, No shoulder pain, No arm pain, No back pain, No hand pain, No leg pain, No foot pain Objective Vitals Vital Signs Date Time Temp Pulse Resp B/P (MAP) Pulse Ox O2 Delivery O2 Flow Rate FiO2 07/22/24 17:27 98.4 73 16 108/69 (82) 100 98.4 07/22/24 08:45 Room Air 07/22/24 08:00 2 28 Intake/Output Intake and Output 07/22/24 07:00 Intake Total 1685 ml Output Total 2200 ml Balance -515 ml Intake Oral 1035 ml IV Total 50 ml Blood Product 600 ml Output Urine Total 2200 ml General Appearance: Alert, Oriented X3, Cooperative, No acute distress HEENT: Atraumatic, PERRLA, EOMI, Mucous membr. moist/pink Neck: Supple Lungs: Clear to auscultation, Normal air movement Cardiovascular: Regular rate, Normal S1, Normal S2, No murmurs, Gallops, Rubs Abdomen: Normal bowel sounds, Soft, No tenderness Neuro: Cranial nerves 3-12 NL Psych/Mental Status: Mental status NL Medications Current Medications Medications Dose Ordered Sig/Sandra Route Start Time Stop Time Status Last Admin Dose Admin Ceftriaxone Sodium 50 ml @ 100 mls/hr DAILY@09 IV 07/21/24 09:00 07/22/24 10:12 100 MLS/HR Sodium Chloride 1,000 ml @ 70 mls/hr [id number] IV 07/20/24 13:00 07/22/24 12:00 70 MLS/HR Acetaminophen/ Hydrocodone Bitart 1 tab Q4HP PRN PO 07/20/24 13:00 07/21/24 21:34 1 TAB Ondansetron HCl 4 mg Q4HP PRN IV 07/20/24 13:00 07/20/24 22:43 4 MG Acetaminophen 650 mg Q6HP PRN PO 07/20/24 13:00 Morphine Sulfate 2 mg Q4HPRN PRN IV 07/20/24 13:00 Pantoprazole Sodium 40 mg BID IV 07/20/24 22:00 Hold 07/21/24 09:41 40 MG Pantoprazole Sodium 50 ml @ 10 mls/hr Q5H IV 07/22/24 16:30 07/22/24 16:55 10 MLS/HR Laboratory Results Laboratory Tests 07/21/24 04:58 07/21/24 18:38 07/22/24 03:20 Labs and/or images reviewed: Labs reviewed by me Assessment/Plan Assessment/Plan Intractable abdominal pain rule out GI bleed Possible GI bleed Esophageal variceals Severe anemia Leukocytosis Elevated creatinine History of GERD History of ulcers History of CABG at 3 years old Plan: Continuing current management. Continuing with IV antibiotic Rocephin and Zosyn Continuing with IV Zofran p.r.n. for nausea and vomiting Continuing with IV Protonix Continuing to keep NPO for now until GI specialist to see the patient. Continuing to monitor hemoglobin. Transfuse if hemoglobin less than seven Waiting for she needs to be done today We will follow up with urine drug screen Appreciated Nephrology and GI specialist input This medical document was created using an electronic medical record system with M*M flurency direct computerized dictation system. Although this document has been carefully reviewed, there may still be some phonetic and typographical errors. These areas are purely typographical due to imperfections of the software programs, and do not reflect any compromise in the patient's medical care. Plan discussed with: Patient My Orders Orders - MARCOS RAMIREZ MD Procedure Category Date Status Time Transfer Orders XFER 07/22/24 Transmitted 13:35 Date of Service: Jul 22, 2024 Billing Provider: MARCOS RAMIREZ MD Common Visit Codes: [id number] INP/OBS CARE(HIGH) MARCOS RAMIREZ MD Jul 22, 2024 20:06
[2024-07-23 01:00] VITALS: BP 108/68; PULSE 89; RESP 20; TEMP 98; O2SAT 96
[2024-07-23 05:00] VITALS: BP 100/59; PULSE 81; RESP 18; TEMP 98.4; O2SAT 94
[2024-07-23 08:55] VITALS: BP 125/74; PULSE 95; RESP 16; TEMP 98.1; O2SAT 96
--- NOTE | 2024-07-23 10:54 | DVHPN2 ---
Progress Note Date Seen: Jul 23, 2024 Medical Necessity Reason Pt with a Central, PICC or Fol: No Objective vital signs Vital Sign Date Time Temp Pulse Resp B/P (MAP) Pulse Ox O2 Delivery O2 Flow Rate FiO2 07/23/24 08:55 98.1 95 16 125/74 (91) 96 98.1 07/22/24 20:00 Nasal Cannula* 2 28 Total Intake and Output 07/22/24 07/22/24 07/23/24 15:00 23:00 07:00 Intake Total 50 ml 290 ml 1300 ml Output Total 1200 ml Balance 50 ml 290 ml 100 ml medications Current Medications Medications Dose Ordered Sig/Sandra Route Start Time Stop Time Status Last Admin Dose Admin Ceftriaxone Sodium 50 ml @ 100 mls/hr DAILY@09 IV 07/21/24 09:00 07/23/24 08:17 100 MLS/HR Sodium Chloride 1,000 ml @ 70 mls/hr [id number] IV 07/20/24 13:00 07/22/24 22:41 70 MLS/HR Acetaminophen/ Hydrocodone Bitart 1 tab Q4HP PRN PO 07/20/24 13:00 07/21/24 21:34 1 TAB Ondansetron HCl 4 mg Q4HP PRN IV 07/20/24 13:00 07/20/24 22:43 4 MG Acetaminophen 650 mg Q6HP PRN PO 07/20/24 13:00 Morphine Sulfate 2 mg Q4HPRN PRN IV 07/20/24 13:00 Pantoprazole Sodium 40 mg BID IV 07/20/24 22:00 Hold 07/21/24 09:41 40 MG Pantoprazole Sodium 50 ml @ 10 mls/hr Q5H IV 07/22/24 16:30 07/23/24 02:37 10 MLS/HR Examination: GENERAL:Abnormal, CVS:Abnormal, ABDOMEN:Abnormal laboratory and microbiology Laboratory Tests 07/22/24 03:20 07/21/24 18:38 07/21/24 04:58 Test 07/21/24 04:58 Range/Units Serum Glucose 119 H 74-106 mg/dL Problem List/Assessment/Plan Problem List/Assessment/Plan Acute kidney injury superimposed Chronic Kidney Disease secondary hemodynamic mediated Precipitous drop in hemoglobin Iron deficiency anemia GI bleeding Congestive heart failure, ejection fraction 30% Left kidney 7 mm non obstructing stone dc fluids Kidney function stabilize Chronic Kidney Disease stage 4 Good urine output Strict I&O's CT scan reported no obstruction PRBC transfusion prn GI consult Plan discussed with: Patient CC Plasma Assessment Blood Product Administration S: 1200 KORY GONZALEZ MD Jul 23, 2024 10:54
--- NOTE | 2024-07-23 11:10 | ECG ---
[facility] Test Date: 2024-07-22 Test Time: 12:53:56 Pat Name: MALIHA LANGFORD Department: Room: 0280T B Gender: M Gastrointestinal Technician: kelsie : 1975 Requested By: ANDRE COLLINS Order Number: [id number] Reading MD: Kaitlynn Le Measurements Intervals [place] Rate: 64 P: 73 FL: 151 QRS: 72 QRSD: 88 T: 66 QT: 414 QTc: 427 Interpretive Statements Sinus rhythm Baseline wander in lead(s) V3,V5,V6 Electronically Signed On 07-25-2024 10:05:29 PST by Kaitlynn Le Please click the below link to view image of tracing.
--- NOTE | 2024-07-23 11:48 | DVHDS2 ---
Discharge Summary Date of Admission Jul 20, 2024 at 12:47 Date of Discharge: Jul 23, 2024 Admitting Diagnosis Intractable abdominal pain rule out GI bleed Possible GI bleed Severe anemia Leukocytosis Elevated creatinine History of GERD History of ulcers History of CABG at 3 years old Labs/Diagnostic Data: Laboratory Results Test 07/22/24 03:20 07/21/24 18:38 07/21/24 04:58 07/20/24 09:47 Hemoglobin 8.0 g/dL (13.5-17.5) White Blood Count 11.1 10^3/uL (4.4-10.8) Red Blood Count 4.41 10^6/uL (4.5-5.90) Hematocrit 26.5 % (41.0-53.0) Mean Corpuscular Volume 60.1 fL (80.0-100.0) Mean Corpuscular Hemoglobin 16.9 pg (28.0-32.0) Mean Corpuscular Hemoglobin Concent 28.1 g/dL (32.0-36.0) Red Cell Distribution Width 32.9 % (11.8-14.3) Platelet Count 325 10^3/uL (140-450) Mean Platelet Volume 7.9 fL (6.9-10.8) Neutrophils (%) (Auto) 78.3 % (37.0-80.0) Lymphocytes (%) (Auto) 13.5 % (10.0-50.0) Monocytes (%) (Auto) 7.2 % (0.0-12.0) Eosinophils (%) (Auto) 0.3 % (0.0-7.0) Basophils (%) (Auto) 0.7 % (0.0-2.0) Neutrophils # (Auto) 8.7 10 ^3/uL (1.6-8.6) Lymphocytes # (Auto) 1.5 10 ^3/uL (0.4-5.4) Monocytes # (Auto) 0.8 10 ^3/uL (0-1.3) Eosinophils # (Auto) 0 10 ^3/uL (0-0.8) Basophils # (Auto) 0.1 10 ^3/uL (0-0.2) Nucleated Red Blood Cells 0.2 % Platelet Estimate Adequate Hypochromasia (manual) Marked Anisocytosis (manual) Moderate Microcytosis Marked Sodium Level 136 mmol/L (136-145) Potassium Level 3.6 mmol/L (3.5-5.1) Chloride Level 95 mmol/L (98-107) Carbon Dioxide Level 33 mmol/L (20-31) Anion Gap 8 (5-15) Blood Urea Nitrogen 51 mg/dL (9-23) Creatinine 3.09 mg/dL (0.700-1.30) Glomerular Filtration Rate Calc 24 mL/min (>90) BUN/Creatinine Ratio 16.5 (10.0-20.0) Serum Glucose 119 mg/dL (74-106) Calcium Level 8.7 mg/dL (8.7-10.4) Total Bilirubin 1.4 mg/dL (0.2-1.0) Aspartate Amino Transferase (AST) < 8 U/L (13-40) Alanine Aminotransferase (ALT) 11 U/L (7-40) Alkaline Phosphatase 73 U/L (46-116) Total Protein 6.8 g/dL (5.7-8.2) Albumin 4.3 g/dL (3.2-4.8) Differential Total Cells Counted 100.0 (100) Neutrophils % (Manual) 90 (37.0-80.0) Band Neutrophils % (Manual) 1 Lymphocytes % (Manual) 5 (10.0-50.0) Monocytes % (Manual) 4 (0-12) Eosinophils % (Manual) 0 (0-7) Basophils % (Manual) 0 (0.0-2.0) Metamyelocytes % (manual) 0 Myelocytes % (Manual) 0 Promyelocytes % (Manual) 0 Blast Cells % (Manual) 0 Reactive Lymphocytes 0 Large Platelets Few Giant Platelets Few Polychromasia Slight Prothrombin Time 11.8 sec (9.3-11.8) Prothrombin Time INR 1.13 (0.9-1.15) Activated Partial Thromboplast Time 24.7 SEC (24.5-34.5) Phosphorus Level 5.0 mg/dL (2.4-5.1) Magnesium Level 2.1 mg/dL (1.6-2.6) Iron Level 13 ug/dL (65-175) Total Iron Binding Capacity 433 ug/dL (250-425) Percent Iron Saturation 3.0 % (20-55) Ferritin 1.8 ng/mL (22-322) Vitamin D 25-Hydroxy 15.2 ng/mL (30.0-100) Parathyroid Hormone (Intact) 435.6 pg/mL (18.4-80.1) Other Laboratory Tests 07/22/24 03:20 07/21/24 18:38 07/21/24 04:58 Brief Hx & Hospital Course: This is a 48 years old male with past medical history of GERD , peptic ulcer disease, CABG two years ago, anemia, come to emergency department because of severe abdominal pain, nausea, vomiting with coffee-grounds emesis for 12 hours. The patient complained of abdominal pain seven out of pain intermittent throbbing and burning. Patient take some ice chips is and feel better however the pain did not go away so he decided to come to hospital for further evaluation. The patient has a history EGD in the past with variceal and had been banding in the past. The patient denied any recent history of alcohol abuse. Patient used to drink heavy. The patient was found to have hemoglobin of 6.7. The patient received one packed red blood cell and hemoglobin is stable today at 8. Subsequently the patient had EGD done this time. It showed: Severe erosive esophagitis likely cause of recurrent GI bleeding, ulceration in the mid to distal esophagus. Mild gastritis. GI specialist recommend Protonix 40 mg twice per day and Carafate a 1000 mg 3 times per day. Recommend repeat EGD in two months to follow up with the ulceration. Activity as tolerated. Diet per home diet. Recommend abstinence from drinking. Follow up with GI specialist for repeat EGD in two months. Follow up with primary care physician 1-2 weeks. While waiting for the nurse to prepare paperwork for discharge the patient decided to leave against medical advice. The patient was advised not to do that because his hemoglobin still around eight and we need to wait for clearance from GI specialist. And also I need to send medication to the pharmacy but the patient decided to leave the hospital against medical advice. The patient said he does not need any medication and did not wait for prescription to send to the pharmacy. He left against medical advice Physical exam: HEENT: Normocephalic atraumatic pupils equal react to light and accommodation. Extraocular muscles intact, conjunctiva pink, oropharynx moist, no thrush, no exudate. Lymphatic: No lymphadenopathy Cardiovascular exam: S1, S2 was heard. No murmurs, rubs, gallops Lung: Clear on auscultation bilaterally, no wheeze, rale, rhonchi. GI: Abdominal soft, nondistended, nontenderness, positive bowel sounds. Extremity: No crepitus, cyanosis, edema. Pedal pulses present bilateral. Full range of motion. Skin: Normal turgor, no rash. Psych: Alert, oriented x3. Neurology: No focal deficits, cranial nerve II to XII grossly intact. This medical document was created using an electronic medical record system with [employer] direct computerized dictation system. Although this document has been carefully reviewed, there may still be some phonetic and typographical errors. These areas are purely typographical due to imperfections of the software programs, and do not reflect any compromise in the patient's medical care. Condition at Discharge: Guarded Final Diagnosis/Problems List Intractable abdominal pain rule out GI bleed GI bleed Esophageal variceals Severe anemia Leukocytosis Elevated creatinine History of GERD History of ulcers History of CABG at 3 years old Discharge Disposition: AMA Discharge Instruct/Medications Activity: No Restrictions, As Tolerated Discharge Statement: "Patient was advised to return to the ER or call 911 if any headaches, dizziness, shortness of breath, chest pain, abdominal pain, bleeding, fevers, or worsening of medical condition. Patient was counseled about treatment plan, medications, possible side effects, patientverbalized understanding. All questions were answered to the best of my ability. This discharge took greater then 30 minutes in planning, reviewing documentation, counseling the patient, and discussing with other team members." ASSESSMENT ASSESSMENT Assessment Date of Service: Jul 23, 2024 Billing Provider: MARCOS RAMIREZ MD Common Visit Codes: 54978-PVL/OBS DISCH DAY >30min MARCOS RAMIREZ MD Jul 23, 2024 11:48
--- NOTE | 2024-07-23 15:17 | ECG ---
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
== END 2024-07-23 10:50 | disposition left against medical advice (07) | DRG 242 ==
LOC: EDBD 09:12 → ER 09:12 → OVERFLOW 12:47 → WEST WING 22:00 → TELE-WESTW 07-22 13:38
PROVIDERS: ADMIT Internal Medicine
PROC: 30233N1 Transfusion of Nonautologous Red Blood Cells into Peripheral Vein, Percutaneous Approach (ICD-10-PCS; 2024-07-20)
PROC: 0DJ08ZZ Inspection of Upper Intestinal Tract, Via Natural or Artificial Opening Endoscopic (ICD-10-PCS; principal; 2024-07-22 08:24)
DX: K22.11 Ulcer of esophagus with bleeding (principal); N17.0 Acute kidney failure with tubular necrosis; I85.01 Esophageal varices with bleeding; E87.3 Alkalosis; R65.10 Systemic inflammatory response syndrome (SIRS) of non-infectious origin without acute organ dysfunction; I50.22 Chronic systolic (congestive) heart failure; K29.71 Gastritis, unspecified, with bleeding; I50.9 Heart failure, unspecified; D50.9 Iron deficiency anemia, unspecified; K27.9 Peptic ulcer, site unspecified, unspecified as acute or chronic, without hemorrhage or perforation; Z53.29 Procedure and treatment not carried out because of patient's decision for other reasons; N18.9 Chronic kidney disease, unspecified; N20.0 Calculus of kidney; D72.829 Elevated white blood cell count, unspecified; E66.9 Obesity, unspecified; K21.9 Gastro-esophageal reflux disease without esophagitis; J45.909 Unspecified asthma, uncomplicated; Z95.1 Presence of aortocoronary bypass graft; Z83.3 Family history of diabetes mellitus; Z80.0 Family history of malignant neoplasm of digestive organs; Z68.32 Body mass index [BMI] 32.0-32.9, adult
CPT/HCPCS: 36415; 36430; 43235; 74176; 80053; 82306; 82728; 83540; 83550; 83735; 83970; 84100; 85007; 85018; 85025; 85027; 85610; 85730; 86850; 86900; 86901; 86920; 93005; 93306; 99291; G0378; J2003; J2250; J2405; J2470; J2543; J2704

== ENCOUNTER 2024-09-11 16:03 | Inpatient (IN) | payer MEDICAID ==
[~2024-09-11] VITALS: Ht 170.2 cm; Wt 89.9 kg
--- NOTE | 2024-09-11 17:37 | ED.PDOC ---
GI ASSESSMENT HPI Comments 48 y/o M, with PMHX of GERD, asthma, and anemia presents to the ED for CC of GI bleed. Patient states, that he has been experiencing hematemesis since, 0400 this morning (09/11/24). Patient relays, that he has filled up x3 grocery bags with bright red vomit. Patient comments on, previously receiving a transfusion in July 2024 for similar symptoms. Patient denies fever, chills, body-aches, weakness, melena or dizziness. No other symptoms or modifying factors at this time. Chief Complaint: GI Bleed Time Seen by MD: 17:20 Primary Care Provider: ECTOR Reviewed Notes: Nurses Notes, Medications, Allergies Allergies: Coded Allergies: Kiwi Extract (Verified Allergy, Severe, 08/15/23) Uncoded Allergies: KIWI (Allergy, Unknown, 05/05/21) Home Meds Active Scripts Pantoprazole Sodium Sesquihydr (Protonix) 40 Mg Tab, 40 MG PO BID, #60 TAB Prov:KARENDOMINGUEZ ELECTRICAL ELECTRONICS ENGINEER 06/09/23 Reported Medications Sucralfate (Sucralfate) 1 Gm Tab, 1 TAB PO QID 10/12/21 Information Source: Patient Mode of Arrival: Ambulatory Timing: Days Duration: Hours Prehospital treatment: None Quality: None Vomitus: Bloody Severity: Moderate Recent: None Recent Hx of: None Pain Location: None Modifying Factors: Nothing Associated sign and symptoms: None Past Medical History PAST MEDICAL HISTORY: Anemia, Asthma, GERD Surgical History: CABG Family History Family History: Unknown Social History Smoker: Non-Smoker Alcohol: Occasionally Drugs: Denies Drug Use Lives In: Home Constitutional: denies: chills, diaphoresis, fatigue, fever, malaise, sweats, weakness, others EENTM: denies: blurred vision, double vision, ear bleeding, ear discharge, ear drainage, ear pain, ear ringing, eye pain, eye redness, hearing loss, mouth pain, mouth swelling, nasal discharge, nose bleeding, nose congestion, nose pain, photophobia, tearing, throat pain, throat swelling, voice changes, others Respiratory: denies: cough, hemoptysis, orthopnea, SOB at rest, shortness of breath, SOB with excertion, stridor, wheezing, others Cardiovascular: denies: chest pain, dizzy spells, diaphoresis, Dyspnea on exertion, edema, irregular heart beat, left arm pain, lightheadedness, palpitations, PND, syncope, others Gastrointestinal: reports: hematemesis; denies: abdomen distended, abdominal pain, blood streaked bowels, constipated, diarrhea, dysphagia, difficulty swallowing, melena, nausea, poor appetite, poor fluid intake, rectal bleeding, rectal pain, vomiting, others Genitourinary: denies: burning, dysuria, flank pain, frequency, hematuria, incontinence, penile discharge, penile sore, pain, testicle pain, testicle swelling, urgency, others Neurological: denies: dizziness, fainting, headache, left sided numbness, left sided weakness, numbness, paresthesia, pre-existing deficit, right sided numbness, right sided weakness, seizure, speech problems, tingling, tremors, weakness, others Musculoskeletal: denies: back pain, gout, joint pain, joint swelling, muscle pain, muscle stiffness, neck pain, others Integumetry: denies: bruises, change in color, change in hair/nails, dryness, laceration, lesions, lumps, rash, wounds, others Allergic/Immunocompromised: denies: Difficulty Healing, Frequent Infections, Hives, Itching, others Hematologic/Lymphatic: denies: anemia, blood clots, easy bleeding, easy bruising, swollen glands, others Endocrine: denies: excessive hunger, excessive sweating, excessive thirst, excessive urination, flushing, intolerance to cold, intolerance to heat, unexplained weight gain, unexplained weight loss, others Psychiatric: denies: anxiety, bipolar disorder, depression, hopeless, panic disorder, schizophrenia, sleepless, suicidal, others All Other Systems: Reviewed and Negative Physical Exam General Appearance: Moderate Distress HEENT: Pale Conjuntivae (L), Pale Conjuntivae (R), Pharynx Normal, TMs Normal Neck: Full Range of Motion, Non-Tender, Normal, Normal Inspection Respiratory: Chest Non-Tender, Lungs Clear, No Accessory Muscle Use, No Respiratory Distress, Normal Breath Sounds Cardiovascular: No Edema, No JVD, No Murmur, No Gallop, Normal Peripheral Pulses, Regular Rate/Rhythm Breast Exam: Deferred Gastrointestinal: No Organomegaly, Non Tender, No Pulsatile Mass, Normal Bowel Sounds, Soft Genitalia: Deferred Pelvic: Deferred Rectal: Deferred Extremities: No calf tenderness, Normal capillary refill, No pedal edema Musculoskeletal : Apperance: Normal Neurologic: Alert, merchandise carrier II-XII nml as Tested, Motor Weakness, Normal Affect, Normal Mood, No Sensory Deficits Cerebellar Function: Normal Reflexes: Normal Skin: Dry, Pallor, Warm Lymphatic: No Adenopathy Was a procedure done? Was a procedure done?: No GI differential Dx Differential Diagnosis: GI hemorrhage X-Ray, Labs, Meds, VS Vital Signs Date Time Temp Pulse Resp B/P (MAP) Pulse Ox O2 Delivery O2 Flow Rate FiO2 09/11/24 16:15 98.4 122 16 133/87 (102) 100 98.4 Lab Test 09/11/24 17:46 Range/Units White Blood Count 12.5 H 4.4-10.8 10^3/uL Red Blood Count 5.94 H 4.5-5.90 10^6/uL Hemoglobin 10.0 L 13.5-17.5 g/dL Hematocrit 34.9 L 41.0-53.0 % Mean Corpuscular Volume 58.8 L 80.0-100.0 fL Mean Corpuscular Hemoglobin 16.8 L 28.0-32.0 pg Mean Corpuscular Hemoglobin Concent 28.5 L 32.0-36.0 g/dL Red Cell Distribution Width 25.9 H 11.8-14.3 % Platelet Count 418 140-450 10^3/uL Mean Platelet Volume 8.2 6.9-10.8 fL Neutrophils (%) (Auto) 83.3 H 37.0-80.0 % Lymphocytes (%) (Auto) 9.3 L 10.0-50.0 % Monocytes (%) (Auto) 7.1 0.0-12.0 % Eosinophils (%) (Auto) 0.1 0.0-7.0 % Basophils (%) (Auto) 0.2 0.0-2.0 % Neutrophils # (Auto) 10.4 H 1.6-8.6 10 ^3/uL Lymphocytes # (Auto) 1.2 0.4-5.4 10 ^3/uL Monocytes # (Auto) 0.9 0-1.3 10 ^3/uL Eosinophils # (Auto) 0 0-0.8 10 ^3/uL Basophils # (Auto) 0 0-0.2 10 ^3/uL Nucleated Red Blood Cells 0.2 % Platelet Estimate Adequate Hypochromasia (manual) Marked Anisocytosis (manual) Moderate Microcytosis Marked Stomatocytes Moderate Prothrombin Time 11.3 9.3-11.8 sec Prothrombin Time INR 1.07 0.9-1.15 Activated Partial Thromboplast Time 25.7 24.5-34.5 SEC Sodium Level 137 136-145 mmol/L Potassium Level 3.7 3.5-5.1 mmol/L Chloride Level 95 L 98-107 mmol/L Carbon Dioxide Level 30 20-31 mmol/L Anion Gap 12 5-15 Blood Urea Nitrogen 39 H 9-23 mg/dL Creatinine 2.20 H 0.700-1.30 mg/dL Glomerular Filtration Rate Calc 36 >90 mL/min BUN/Creatinine Ratio 17.7 10.0-20.0 Serum Glucose 122 H 74-106 mg/dL Calcium Level 9.6 8.7-10.4 mg/dL Current Medications Medications (Trade) Dose Ordered Sig/Sandra Route Start Time Stop Time Status Last Admin Sodium Chloride 500 ml @ 500 mls/hr Q1H ONCE IV 09/11/24 17:45 09/11/24 18:44 DC 09/11/24 20:25 Pantoprazole Sodium 50 ml @ 10 mls/hr Q5H ONCE IV 09/11/24 17:45 09/11/24 22:44 09/11/24 20:00 Octreotide Acetate 100 mcg/ Sodium Chloride 51 ml @ 204 mls/hr ONCE ONCE IV 09/11/24 17:45 09/11/24 17:59 DC 09/11/24 20:08 Octreotide Acetate 500 mcg/ Sodium Chloride 100 ml @ 10 mls/hr Q10H IV 09/11/24 17:45 09/11/24 20:00 IV Hep-Lock was established. The patient was given normal saline at 500 cc bolus. The patient did have some bleeding so we did start the patient on a Protonix drip as well as Sandostatin drip. The patient's BUN is 39 the creatinine is 2.2 The patient's hemoglobin is 10 and hematocrit is 34.9 The white blood cell count is 12.5 This time, the patient was being admitted to the hospitalist Time of 1ST Reevaluation: 17:50 Reevaluation 1ST: Unchanged Patient Education/Counseling: Diagnosis, Treatment, Prognosis Family Education/Counseling: No Family Present Departure 1 Departure Time of Disposition: 20:44 Impression: Primary Impression: Severe anemia Additional Impression: Upper GI bleed Disposition: ADMITTED INPATIENT Admit to: Tele Condition: Fair Critical Care Note Critical Care Time?: Yes (35 min-critical care time only) Stability Stability form required: Yes Unstable for transfer: Telemetry monitoring (Telemetry monitoring required), ED Physician Assesment (Clinical assesment) Heart Score Heart Score: Heart Score Response (Comments) Value History N/A 0 EKG N/A 0 Age N/A 0 Risk Factors N/A 0 Troponin N/A 0 Total 0 I personally scribed for FIONA QUIROZ MD ([email or web address]) on 09/11/24 at 17:37. Electronically submitted by Paola Pedroza ([email or web address]). FIONA QUIROZ MD Sep 11, 2024 17:37
[2024-09-11 18:11] LABS: Basophils # (auto) 0 10 ^3/uL (0-0.2); Eosinophils # (auto) 0 10 ^3/uL (0-0.8); Eosinophils % (auto) 0.1 % (0.0-7.0); Lymphocytes # (auto) 1.2 10 ^3/uL (0.4-5.4); Nucleated Red Blood Cells % 0.2 %
[2024-09-11 18:14] LABS: Basophils % (auto) 0.2 % (0.0-2.0); Hematocrit 34.9 % (41.0-53.0); Lymphocytes % (auto) 9.3 % (10.0-50.0); Mean Corpuscular Hemoglobin 16.8 pg (28.0-32.0); Mean Corpuscular Hgb Conc. 28.5 g/dL (32.0-36.0); Mean Corpuscular Volume 58.8 fL (80.0-100.0); Monocytes # (auto) 0.9 10 ^3/uL (0-1.3); Monocytes % (auto) 7.1 % (0.0-12.0); Neutrophils # (auto) 10.4 10 ^3/uL (1.6-8.6); Neutrophils % (auto) 83.3 % (37.0-80.0); Platelet Count (auto) 418 10^3/uL (140-450); Red Blood Cells 5.94 10^6/uL (4.5-5.90); White Blood Cell 12.5 10^3/uL (4.4-10.8)
[2024-09-11 18:15] LABS: Potassium 3.7 mmol/L (3.5-5.1); Sodium 137 mmol/L (136-145)
[2024-09-11 18:16] LABS: Calcium 9.6 mg/dL (8.7-10.4); Carbon Dioxide 30 mmol/L (20-31); Red Cell Distribution Width 25.9 % (11.8-14.3)
[2024-09-11 18:21] LABS: BUN/Creatinine Ratio 17.7 (10.0-20.0)
[2024-09-11 18:26] LABS: Blood Urea Nitrogen 39 mg/dL (9-23); Glucose 122 mg/dL (74-106)
[2024-09-11 18:27] LABS: Anion Gap 12 (5-15); Chloride 95 mmol/L (98-107)
[2024-09-11 18:28] LABS: INR 1.07 (0.9-1.15); Partial Thromboplastin Time 25.7 SEC (24.5-34.5); Prothrombin Time 11.3 sec (9.3-11.8)
[2024-09-11 18:48] LABS: Anisocytosis Moderate; Hypochromia Marked; Platelet Estimate Adequate
[2024-09-11 18:49] LABS: Stomatocytes Moderate
[2024-09-11] MEDS ORDERED: NITROGLYCERIN 0.4 MG SL TAB SL PRN (19:45)
[2024-09-11] MEDS ORDERED: MORPHINE SULFATE INJ 2 MG/ml SYRG IV PRN (19:45)
[2024-09-11] MEDS ORDERED: ONDANSETRON HCL 4 MG/2 ML VIAL IV PRN (19:45)
[2024-09-11 20:00] VITALS: PULSE 85; RESP 16; O2SAT 95
[2024-09-11] MEDS: OCTREOTIDE ACETATE 500 MCG in SODIUM CHL 0.9% 99 ML IV SCH (20:00)
[2024-09-11] MEDS: PANTOPRAZOLE 40mg/50ML NS AE 50 ML IV ONE (20:00)
[2024-09-11] MEDS: SODIUM CHLORIDE 0.9% 1,000 ML IV SCH (20:00)
[2024-09-11] MEDS: OCTREOTIDE ACETATE 500 MCG/ML VL ONE (20:07)
[2024-09-11] MEDS: OCTREOTIDE ACETATE 100 MCG/ML VL ONE (20:07)
[2024-09-11] MEDS: OCTREOTIDE ACETATE 100 MCG in SODIUM CHL 0.9% 50 ML IV ONE (20:08)
[2024-09-11 20:15] LABS: Hematocrit 34.3 % (41.0-53.0); Hemoglobin 9.7 g/dL (13.5-17.5)
[2024-09-11] MEDS: SODIUM CHLORIDE 0.9% 500 ML IV ONE (20:25)
[2024-09-11] MEDS: PANTOPRAZOLE 40mg/50ML NS AE 50 ML IV SCH (20:26)
--- NOTE | 2024-09-11 20:49 | DVHHP2 ---
History of Present Illness Reason for Visit: GI bleed History of Present Illness 48-year-old male presents for evaluation of GI bleed. Patient reports bloody emesis x4 episodes since this morning today. He reports being admitted a month and a half ago for similar reasons and was transfused and was diagnosed with bleeding ulcer. Denies melena. No chest pain or shortness for breath. No other acute complaints. Past Medical History CAD,. Anemia, GERD, asthma Past Surgical History CABG Family History Noncontributory Smoke: No ALCOHOL: occassional Drugs: None Lives: with Family Review of Systems Review of Systems Review of systems are currently negative otherwise addressed in HPI. Allergies: Coded Allergies: Kiwi Extract (Verified Allergy, Severe, 08/15/23) Uncoded Allergies: KIWI (Allergy, Unknown, 05/05/21) Medications Current Medications Medications Dose Ordered Sig/Sandra Route Start Time Stop Time Status Last Admin Dose Admin Octreotide Acetate 500 mcg/ Sodium Chloride 100 ml @ 10 mls/hr Q10H IV 09/11/24 17:45 09/11/24 20:00 10 MLS/HR Pantoprazole Sodium 50 ml @ 10 mls/hr Q5H IV 09/11/24 19:45 Sodium Chloride 1,000 ml @ 85 mls/hr [id number] IV 09/11/24 19:45 09/11/24 20:00 85 MLS/HR Ondansetron HCl 4 mg Q4HP PRN IV 09/11/24 19:45 Nitroglycerin 0.4 mg Q5MINP PRN SL 09/11/24 19:45 Morphine Sulfate 2 mg Q30M PRN IV 09/11/24 19:45 Exam Vital Signs Vital Signs Date Time Temp Pulse Resp B/P (MAP) Pulse Ox O2 Delivery O2 Flow Rate FiO2 09/11/24 16:15 98.4 122 16 133/87 (102) 100 98.4 Exam Gen: 48-year-old male Skin: Warm, dry, normal color and texture, no rash. HEENT: Normocephalic atraumatic, mucous membranes moist and pink. Neck: Cervical and supraclavicular nodes normal without enlargement, trachea is midline, thyroid gland is normal without masses. Pulmonary: Clear to auscultation and percussion bilaterally. Cardiac: Regular rate and rhythm. No murmur Abdomen: Soft, nontender, nondistended, bowel sounds present all 4 quadrants, no guarding, no rigidity, no organomegaly. Extremities: No cyanosis, clubbing, no edema Neuro: Cranial nerves II through XII grossly intact, normal affect and speech, no focal motor deficits. Labs/Xrays ORDERING PHYSICIAN: MARIA ELENA RICKETTS PROCEDURE(s): ABPL - CT AB PEL WO CON-NO ORAL OR IV REASON: abd pain, gi bleed, hx PUD ORDER NUMBER(s): [id number], ACCESSION NUMBER(s): [id number] CT SCAN ABDOMEN AND PELVIS WITHOUT CONTRAST CLINICAL HISTORY: abd pain, gi bleed, hx PUD TECHNIQUE: Helical axial images are obtained from the lung bases through the pelvis without oral contrast. No intravenous contrast was administered. Coronal and sagittal reformatted images were generated from thin section reconstructions. One or more of the following radiation dose reduction techniques were used for this examination: automated exposure control, adjustment of the mA and/or kV according to patient size, use of iterative reconstruction technique. COMPARISON: CT CT AB PEL WO CON-NO ORAL OR IV on DOS: 07/20/24 FINDINGS: LOWER THORAX: Scattered atelectasis/scarring in the left lung base. Surgical clips in the left lower posterior chest wall with associated chronic appearing irregularity of the left inferior scapula. ABDOMEN AND PELVIS: Evaluation of visceral and vascular structures is limited due to lack of contrast administration. As visualized, the unenhanced liver, spleen, pancreas and adrenals appear grossly unremarkable. No sizable, radiopaque cholelithiasis or biliary ductal dilatation. No hydroureteronephrosis or sizable, obstructing urinary tract calculi identified. Stable appearing nonobstructing left upper pole nephrolithiasis. No evidence of abdominal aortic aneurysm. Small hiatal hernia with thickening of the distal esophagus is again noted. Stable appearing borderline enlarged 1 cm lymph node near the gastroesophageal junction. No evidence of bowel obstruction. Normal caliber appendix. Sigmoid diverticulosis without definite CT evidence of diverticulitis at this time. No free intraperitoneal air or fluid identified. No sizable bladder calculus. No destructive osseous lesions identified. Chronic appearing mild superior endplate compression of L4. IMPRESSION: No bowel obstruction, free intraperitoneal air/fluid or sizable inflammatory collections identified at this time. Small hiatal hernia with distal esophageal thickening is again noted. Correlate with any endoscopic history/findings. Sigmoid diverticulosis without definite CT evidence of diverticulitis at this time. A few other unchanged findings as above. Labs Test 09/11/24 20:02 09/11/24 17:46 Range/Units Hemoglobin 9.7 L 13.5-17.5 g/dL Hematocrit 34.3 L 41.0-53.0 % White Blood Count 12.5 H 4.4-10.8 10^3/uL Red Blood Count 5.94 H 4.5-5.90 10^6/uL Mean Corpuscular Volume 58.8 L 80.0-100.0 fL Mean Corpuscular Hemoglobin 16.8 L 28.0-32.0 pg Mean Corpuscular Hemoglobin Concent 28.5 L 32.0-36.0 g/dL Red Cell Distribution Width 25.9 H 11.8-14.3 % Platelet Count 418 140-450 10^3/uL Mean Platelet Volume 8.2 6.9-10.8 fL Neutrophils (%) (Auto) 83.3 H 37.0-80.0 % Lymphocytes (%) (Auto) 9.3 L 10.0-50.0 % Monocytes (%) (Auto) 7.1 0.0-12.0 % Eosinophils (%) (Auto) 0.1 0.0-7.0 % Basophils (%) (Auto) 0.2 0.0-2.0 % Neutrophils # (Auto) 10.4 H 1.6-8.6 10 ^3/uL Lymphocytes # (Auto) 1.2 0.4-5.4 10 ^3/uL Monocytes # (Auto) 0.9 0-1.3 10 ^3/uL Eosinophils # (Auto) 0 0-0.8 10 ^3/uL Basophils # (Auto) 0 0-0.2 10 ^3/uL Nucleated Red Blood Cells 0.2 % Platelet Estimate Adequate Hypochromasia (manual) Marked Anisocytosis (manual) Moderate Microcytosis Marked Stomatocytes Moderate Prothrombin Time 11.3 9.3-11.8 sec Prothrombin Time INR 1.07 0.9-1.15 Activated Partial Thromboplast Time 25.7 24.5-34.5 SEC Sodium Level 137 136-145 mmol/L Potassium Level 3.7 3.5-5.1 mmol/L Chloride Level 95 L 98-107 mmol/L Carbon Dioxide Level 30 20-31 mmol/L Anion Gap 12 5-15 Blood Urea Nitrogen 39 H 9-23 mg/dL Creatinine 2.20 H 0.700-1.30 mg/dL Glomerular Filtration Rate Calc 36 >90 mL/min BUN/Creatinine Ratio 17.7 10.0-20.0 Serum Glucose 122 H 74-106 mg/dL Calcium Level 9.6 8.7-10.4 mg/dL Assessment/Plan Assessment/Plan Assessment ? Upper GI bleed Chronic kidney disease Mild anemia Plan Admit the patient to [facility] to the hospitalist GI consultation NPO Maintenance IV fluids Continue treatment per orders. Plan discussed with: Patient My Orders Orders - MARIA ELENA RICKETTS Procedure Category Date Status Time Pantoprazole PHA 09/11/24 In Process 40mg/50ml Ns Ae 19:45 * Gi Dvh Art Director CONS 09/11/24 Transmitted 19:41 Admit ADMIT 09/11/24 Transmitted 19:41 Sodium Chloride 0.9% PHA 09/11/24 In Process 19:45 Ondansetron Hcl PHA 09/11/24 In Process (Zofran) 19:45 Complete Blood Count LAB 09/12/24 Verified 04:00 Comprehensive LAB 09/12/24 Verified Metabolic Panel 04:00 Npo (Nothing By DIET 09/12/24 Transmitted Mouth) Diet Breakfast Condition: Fair BROCK 09/11/24 In Process 19:41 Bedrest With Bathroom BROCK 09/11/24 In Process Privileg 19:41 Nitroglycerin PHA 09/11/24 In Process Sublingual (Ntrostat 19:45 Morphine Sulfate PHA 09/11/24 In Process Injection 19:45 Stat Ekg For Chest BROCK 09/11/24 In Process Pain 19:41 Notify Md Of Changes BROCK 09/11/24 In Process From Base 19:41 Supervisor Operations For BROCK 09/11/24 In Process 24 Hours 19:41 Emergency Dysrhythmia BROCK 09/11/24 In Process Protocol 19:41 Rhythm Strips Once BROCK 09/11/24 In Process Every Shift 19:41 Oxygen By Nasal RT 09/11/24 Transmitted Cannula 19:41 Date of Service: Sep 11, 2024 Billing Provider: MARIA ELENA RICKETTS Common Visit Codes: [id number] INP/OBS CARE (HIGH) MARIA ELENA RICKETTS Sep 11, 2024 20:49
--- NOTE | 2024-09-11 21:50 | DVH ---
CT SCAN ABDOMEN AND PELVIS WITHOUT CONTRAST CLINICAL HISTORY: abd pain, gi bleed, hx PUD TECHNIQUE: Helical axial images are obtained from the lung bases through the pelvis without oral cont rast. No intravenous contrast was administered. Coronal and sagittal reformatted images were generate d from thin section reconstructions. One or more of the following radiation dose reduction techniques were used for this examination: automated exposure control, adjustment of the mA and/or kV according to patient size, use of iterative reconstruction technique. COMPARISON: CT CT AB PEL WO CON-NO ORAL OR IV on DOS: 07/20/24 FINDINGS: LOWER THORAX: Scattered atelectasis/scarring in the left lung base. Surgical clips in the left lower posterior chest wall with associated chronic appearing irregularity of the left inferior scapula. ABDOMEN AND PELVIS: Evaluation of visceral and vascular structures is limited due to lack of contrast administration. As visualized, the unenhanced liver, spleen, pancreas and adrenals appear grossly unremarkable. No si zable, radiopaque cholelithiasis or biliary ductal dilatation. No hydroureteronephrosis or sizable, obstructing urinary tract calculi identified. Stable appearing n onobstructing left upper pole nephrolithiasis. No evidence of abdominal aortic aneurysm. Small hiatal hernia with thickening of the distal esophagus is again noted. Stable appearing borderli ne enlarged 1 cm lymph node near the gastroesophageal junction. No evidence of bowel obstruction. Nor mal caliber appendix. Sigmoid diverticulosis without definite CT evidence of diverticulitis at this t alexandr. No free intraperitoneal air or fluid identified. No sizable bladder calculus. No destructive osseous lesions identified. Chronic appearing mild superior endplate compression of L4 . IMPRESSION: No bowel obstruction, free intraperitoneal air/fluid or sizable inflammatory collections identified a t this time. Small hiatal hernia with distal esophageal thickening is again noted. Correlate with any endoscopic h istory/findings. Sigmoid diverticulosis without definite CT evidence of diverticulitis at this time. A few other unchanged findings as above.
[2024-09-12] VITALS (9 sets, daily range): BP systolic 95–121; BP diastolic 48–80; PULSE 63–79; RESP 13–19; TEMP 98.1–99.2; O2SAT 94–100
[2024-09-12] MEDS: OCTREOTIDE ACETATE 500 MCG/ML VL ONE (05:12)
[2024-09-12 06:42] LABS: Alanine Aminotransferase 13 U/L (7-40); Alkaline Phosphatase 70 U/L (46-116); Anion Gap 8 (5-15); BUN/Creatinine Ratio 18.9 (10.0-20.0); Basophils # (auto) 0 10 ^3/uL (0-0.2); Carbon Dioxide 28 mmol/L (20-31); Chloride 103 mmol/L (98-107); Eosinophils # (auto) 0.1 10 ^3/uL (0-0.8); Mean Corpuscular Hemoglobin 17.4 pg (28.0-32.0); Monocytes # (auto) 0.6 10 ^3/uL (0-1.3); Potassium 3.7 mmol/L (3.5-5.1); Sodium 139 mmol/L (136-145); Total Protein 6.8 g/dL (5.7-8.2)
[2024-09-12 06:48] LABS: Basophils % (auto) 0.6 % (0.0-2.0); Eosinophils % (auto) 1.1 % (0.0-7.0); Hematocrit 27.7 % (41.0-53.0); Lymphocytes # (auto) 1.6 10 ^3/uL (0.4-5.4); Lymphocytes % (auto) 22.2 % (10.0-50.0); Mean Corpuscular Volume 59.9 fL (80.0-100.0); Monocytes % (auto) 7.6 % (0.0-12.0); Neutrophils % (auto) 68.5 % (37.0-80.0); Platelet Count (auto) 293 10^3/uL (140-450); Red Blood Cells 4.63 10^6/uL (4.5-5.90); White Blood Cell 7.3 10^3/uL (4.4-10.8)
[2024-09-12 06:49] LABS: Aspartate Aminotransferase 11 U/L (13-40); Blood Urea Nitrogen 34 mg/dL (9-23); Calcium 8.5 mg/dL (8.7-10.4); Glucose 119 mg/dL (74-106)
[2024-09-12 07:00] LABS: Red Cell Distribution Width 25.3 % (11.8-14.3)
[2024-09-12] MEDS ORDERED: SODIUM CHLORIDE LOCK 10 ML ONE (10:55)
[2024-09-12] MEDS ORDERED: LIDOCAINE VISCOUS 2% 15ML UD ONE (10:55)
[2024-09-12] MEDS ORDERED: diphenhdrAMINE HCL 50 MG/1 ML VL ONE (10:56)
[2024-09-12] MEDS ORDERED: MIDAZOLAM HCL 5 MG/ML-1ML VIAL ONE (10:56)
[2024-09-12] MEDS ORDERED: fentaNYL CITRATE 100 MCG/2 ML VL ONE (10:56)
--- NOTE | 2024-09-12 12:15 | DVHINCON2 ---
GI Consult Consult Note GI consult note Date of Consultation: 08/1924 Chief Complaint: GI bleed Referring Physician: Donato VAIL H&P: 48-year-old male with PMH of GERD, asthma presents to the ER with complaints of GI bleed Patient gives history of hematemesis starting at 4:00 a.m. yesterday, patient had three episodes of hematemesis, and reports large amount of blood in emesis. No melena. No abdominal pain. Patient denies nausea and vomiting Patient does have history of GERD. SP EGD 08/17/2023, and 06/08/[address] Christopher Operative Report DATE OF OPERATION: 08/17/23 PROCEDURE: Upper Endoscopy with biopsy. PREOPERATIVE INDICATION: The patient is a 47 -year-old male undergoing endoscopy for nausea vomiting upper GI bleed and history of severe esophagitis and esophageal ulceration POSTOPERATIVE DIAGNOSES: 1. 3 to 4 cm sliding-type hiatal hernia with acute grade C erosive esophagitis with circumferential ulceration extending into the distal 10 cm of the esophagus with underlying Lind's 2. Overall endoscopic appearance was slightly improved compared to previous examination and the deep esophageal ulcer noted on the last endoscopy had healed PROCEDURE PERFORMED BY: Rula Christopher Patient denies use of any blood thinners Pathology obtained and added to the chart Past Medical History: Anemia, Asthma, GERD Past Surgical History: CABG Social History: NO smoking, drinking ETOH and use of illegal drugs. Family History: Noncontributory Review of Systems: Constitutional: no fever, chill, weight loss HEENT: no eye pain, no hearing loss, no oral lesion, no scleral icterus Heart: no chest pain, no chest pressure Lung: no cough, no dyspnea with exertion Abdomen: see HPI Physical exam: General: NAD, AAOX3 Chest: lung brown clear to auscultation Heart: RRR, no murmur Abdomen: non-distended, no tenderness to palpation, +BS Labs: Labs Test 09/12/24 06:05 09/11/24 17:46 Range/Units White Blood Count 7.3 # 4.4-10.8 10^3/uL Red Blood Count 4.63 4.5-5.90 10^6/uL Hemoglobin 8.0 #L 13.5-17.5 g/dL Hematocrit 27.7 #L 41.0-53.0 % Mean Corpuscular Volume 59.9 L 80.0-100.0 fL Mean Corpuscular Hemoglobin 17.4 L 28.0-32.0 pg Mean Corpuscular Hemoglobin Concent 29.0 L 32.0-36.0 g/dL Red Cell Distribution Width 25.3 H 11.8-14.3 % Platelet Count 293 140-450 10^3/uL Mean Platelet Volume 8.1 6.9-10.8 fL Neutrophils (%) (Auto) 68.5 37.0-80.0 % Lymphocytes (%) (Auto) 22.2 10.0-50.0 % Monocytes (%) (Auto) 7.6 0.0-12.0 % Eosinophils (%) (Auto) 1.1 0.0-7.0 % Basophils (%) (Auto) 0.6 0.0-2.0 % Neutrophils # (Auto) 5.0 1.6-8.6 10 ^3/uL Lymphocytes # (Auto) 1.6 0.4-5.4 10 ^3/uL Monocytes # (Auto) 0.6 0-1.3 10 ^3/uL Eosinophils # (Auto) 0.1 0-0.8 10 ^3/uL Basophils # (Auto) 0 0-0.2 10 ^3/uL Nucleated Red Blood Cells 0.0 % Sodium Level 139 136-145 mmol/L Potassium Level 3.7 3.5-5.1 mmol/L Chloride Level 103 98-107 mmol/L Carbon Dioxide Level 28 20-31 mmol/L Anion Gap 8 5-15 Blood Urea Nitrogen 34 H 9-23 mg/dL Creatinine 1.80 H 0.700-1.30 mg/dL Glomerular Filtration Rate Calc 46 >90 mL/min BUN/Creatinine Ratio 18.9 10.0-20.0 Serum Glucose 119 H 74-106 mg/dL Calcium Level 8.5 L 8.7-10.4 mg/dL Total Bilirubin 1.0 0.2-1.0 mg/dL Aspartate Amino Transferase (AST) 11 L 13-40 U/L Alanine Aminotransferase (ALT) 13 7-40 U/L Alkaline Phosphatase 70 46-116 U/L Total Protein 6.8 5.7-8.2 g/dL Albumin 4.0 3.2-4.8 g/dL Platelet Estimate Adequate Hypochromasia (manual) Marked Anisocytosis (manual) Moderate Microcytosis Marked Stomatocytes Moderate Prothrombin Time 11.3 9.3-11.8 sec Prothrombin Time INR 1.07 0.9-1.15 Activated Partial Thromboplast Time 25.7 24.5-34.5 SEC Imaging: CT abdomen pelvis IMPRESSION: No bowel obstruction, free intraperitoneal air/fluid or sizable inflammatory collections identified at this time. Small hiatal hernia with distal esophageal thickening is again noted. Correlate with any endoscopic history/findings. Sigmoid diverticulosis without definite CT evidence of diverticulitis at this time. A few other unchanged findings as above. Assessment: Acute upper GI bleed Anemia History of GERD Hiatal hernia Barretts esophagus Plan: Discussed with Dr. Christopher - Pt will be scheduled for an EGD today 08/1924. Pt was informed of the risks (bleeding, infection, perforation, reaction to sedation medications and cardiopulmonary arrest) and benefit and is agreeable to undergo the procedures. Discussed plan with patient and RN Thank you for this consult Date of Service: Sep 12, 2024 Billing Provider: EDY LEWIS Common Visit Codes: CONSULT ONLY Consultation Codes: [id number] CONSULT <60MIN EDY LEWIS Sep 12, 2024 12:15
[2024-09-12] MEDS ORDERED: MIDAZOLAM HCL 2MG/2ML 2ml VIAL (1mg/ml) ONE (13:01)
[2024-09-12] MEDS ORDERED: LIDOCAINE 1% INJ PF 5ML AMP ONE (13:17)
[2024-09-12] MEDS ORDERED: PROPOFOL 10 MG/ML 20 ML IV ONE ×2 (13:17)
[2024-09-12] MEDS ORDERED: LIDOCAINE 2% (LOCAL ANESTH.) PF 5ml SDV ONE (13:17)
--- NOTE | 2024-09-12 14:24 | DVHOP2 ---
Operative Report DATE OF OPERATION: 09/12/24 PROCEDURE: Upper Endoscopy with biopsy. PREOPERATIVE INDICATION: The patient is a 48 -year-old male undergoing endoscopy for upper GI bleed POSTOPERATIVE DIAGNOSES: 1. 3-4 cm sliding-type hiatal hernia with severe acute erosive esophagitis with circumferential and linear ulceration extending into the distal 10 cm of the esophagus Biopsies were obtained to rule out underlying Lind's 2. Minimal gastritis 3. Two or three benign-appearing gastric polyps were removed from the body of the stomach 4. Otherwise normal examination up to the 2nd and 3rd part of the duodenal with no fresh or old blood in the upper GI tract at this time PROCEDURE PERFORMED BY: Elizabeth Christopher GI NURSE: Samira SCOPE: Olympus videoendoscope. ASA CLASS: 2. PREOPERATIVE MEDICATIONS: Cayetano Barba PROCEDURE IN DETAIL: After obtaining an informed consent, the patient was placed on left lateral decubitus position. The patient was then sedated with the above medications. A bite block was placed between his teeth. The endoscope was then passed through the oropharynx, into the esophagus, and through the stomach and pylorus up to the second and third part of the duodenum. The endoscope was then withdrawn. The 2nd and 3rd part of the duodenal in the duodenal bulb were normal. Duodenal biopsies were obtained The pre-pyloric area antrum showed minimal gastritis. Gastric biopsies were obtained On retroflexion and straight on view the fundus and cardia were normal. There were three benign-appearing gastric polyps that were removed by cold biopsy forceps The endoscope was then withdrawn into the distal esophagus where he had a 3-4 cm sliding-type hiatal hernia with the acute grade C erosive esophagitis with linear and circumferential ulcers extending into the distal 10 cm of the esophagus. Multiple biopsies were obtained. The proximal esophagus and oropharynx were normal The patient tolerated the procedure well without difficulty. COMPLICATIONS : None SPECIMENS: Duodenal biopsies Gastric antrum biopsies Gastric polyps Distal esophageal biopsies DISPOSITION: Transfer back to the floor Stable PLAN: 1. Await for biopsy result 2. Will place pt on Protonix 40 mg bid 3. Carafate suspension 1 g p.o. 4 times a day 4. DC aspirin NSAIDs smoking alcohol 5. Start full liquid diet advance slowly as tolerated 6. This patient needs to be maintained on a PPI and Carafate as an outpatient and I may give him a trial of a potassium channel blocking agent like Voquenza as an outpt ELIZABETH CHRISTOPHER MD Sep 12, 2024 14:24
[2024-09-12] MEDS: SUCRALFATE 1 GM/10 ML ORAL SUSP PO SCH (17:24)
--- NOTE | 2024-09-12 19:20 | DVHPNRES ---
Progress Note Date Seen: Sep 12, 2024 Resident Creating Document: JHAJRAFAEL HouseJAN RESIDENT Medical Necessity Reason Pt with a Central, PICC or Fol: No Subjective Review of Systems Patient is a 48-year-old male with a past medical history of GERD, CAD presented to the ED after having episode of hematemesis. Patient reported 4 episodes of bloody emesis yesterday morning. Patient was admitted in June for similar episode bloody emesis. He reports that he has been having episodes of bloody emesis since the past 3 years and his last EGD in June 2024, showed severe erosive esophagitis with ulceration and inflammation from mid to distal esophagus, mild gastritis following which the patient was put on medical management. At presentation this time patient's hemoglobin was 10 G/dL with severe microcytosis and hypochromia. Past medical history: Erosive esophagitis, anemia, coronary artery disease Past surgical history: CABG Social history: Patient denies smoking, alcohol, drug use Review of systems Patient seen and examined at the bedside In the morning patient reported after the 4 episodes of emesis before coming to the hospital he did not have any other episode of vomiting Denies current nausea, melena, shortness of breath, chest pain, dizziness, headache Objective vital signs Vital Sign Date Time Temp Pulse Resp B/P (MAP) Pulse Ox O2 Delivery O2 Flow Rate FiO2 09/12/24 17:00 98.2 79 18 101/55 (70) 99 98.2 09/12/24 14:19 Mask 5.0 09/12/24 14:19 98 Total Intake and Output 09/11/24 09/11/24 09/12/24 15:00 23:00 07:00 Intake Total 285 ml 0 ml Balance 285 ml 0 ml medications Current Medications Medications Dose Ordered Sig/Sandra Route Start Time Stop Time Status Last Admin Dose Admin Pantoprazole Sodium 50 ml @ 10 mls/hr Q5H IV 09/11/24 19:45 09/12/24 17:26 10 MLS/HR Sodium Chloride 1,000 ml @ 85 mls/hr [id number] IV 09/11/24 19:45 09/11/24 20:00 85 MLS/HR Ondansetron HCl 4 mg Q4HP PRN IV 09/11/24 19:45 Nitroglycerin 0.4 mg Q5MINP PRN SL 09/11/24 19:45 Morphine Sulfate 2 mg Q30M PRN IV 09/11/24 19:45 Sucralfate 1 gm QID@0600,1130,1700,2200 PO 09/12/24 17:00 09/12/24 17:24 1 GM Pantoprazole Sodium 40 mg BID IV 09/12/24 22:00 Examination Constitutional: Patient was alert and oriented to time, place and person and does not appear to be in any acute distress Gen - no pallor, no icterus, no cyanosis, no clubbing, no LAD, no edema . Skin - Patients skin is warm and dry. HEENT - normocephalic, atraumatic, dry mucous membranes. Neck - full ROM, no LAD, no JVD Pulmonary - B/L vesicular breath sounds. no crackles , no wheezing, no stridor. cardiovascular - normal S1,S2 heard. no murmurs heard. peripheral pulses normal radial 2+, pedal 2+. GI - soft abdomen. no hepatospleenomegaly. Bowel sounds normoactive Neurological - Bilateral upper extremity strength 5/5, bilateral lower extremity strength 5/5, no facial droop, normal speech, no tremor, no sensory deficiets. laboratory and microbiology Laboratory Tests 09/12/24 06:05 Test 09/12/24 06:05 Range/Units Serum Glucose 119 H 74-106 mg/dL Problem List/Assessment/Plan Problem List/Assessment/Plan Assessment # upper GI bleeding # erosive esophagitis # GERD # Lind's esophagus # microcytic hypochromic anemia # hiatal hernia # gastritis # gastric polyps Upper endoscopy with biopsy POSTOPERATIVE DIAGNOSES: 1. 3-4 cm sliding-type hiatal hernia with severe acute erosive esophagitis with circumferential and linear ulceration extending into the distal 10 cm of the esophagus Biopsies were obtained to rule out underlying Lind's 2. Minimal gastritis 3. Two or three benign-appearing gastric polyps were removed from the body of the stomach 4. Otherwise normal examination up to the 2nd and 3rd part of the duodenal with no fresh or old blood in the upper GI tract at this time Plan - Protonix 40 mg b.i.d. IV - Carafate 1 g p.o. q.i.d. - full liquid diet - monitor H&H - avoid NSAIDs, caffeine - biopsy results to be followed up in the GI outpatient clinic DVT prophylaxis: Held Goals of care discussed with the patient for over 21 minutes. Full code Plan discussed with Dr. Doshi Plan discussed with: Patient Date of Service: Sep 12, 2024 Billing Provider: PIPE DOSHI MD Common Visit Codes: [id number] INP/OBS CARE(HIGH) SONYA OATES RESIDENT Sep 12, 2024 19:20 PIPE DOSHI MD Sep 13, 2024 08:48
[2024-09-12] MEDS ORDERED: PANTOPRAZOLE 40 MG/10 ML VIAL INJ IV SCH (22:00)
== END 2024-09-12 19:50 | disposition left against medical advice (07) | DRG 241 ==
LOC: ER 16:03 → OVERFLOW 19:41 → TELE-WESTW 09-12 02:14
PROVIDERS: ADMIT Student in an Organized Health Care Education/Training Program; ATTEND Student in an Organized Health Care Education/Training Program
PROC: 0DB78ZX Excision of Stomach, Pylorus, Via Natural or Artificial Opening Endoscopic, Diagnostic (ICD-10-PCS; 2024-09-12)
PROC: 0DB68ZX Excision of Stomach, Via Natural or Artificial Opening Endoscopic, Diagnostic (ICD-10-PCS; 2024-09-12)
PROC: 0DB98ZX Excision of Duodenum, Via Natural or Artificial Opening Endoscopic, Diagnostic (ICD-10-PCS; 2024-09-12)
PROC: 0DB38ZX Excision of Lower Esophagus, Via Natural or Artificial Opening Endoscopic, Diagnostic (ICD-10-PCS; principal; 2024-09-12 14:03)
DX: K29.71 Gastritis, unspecified, with bleeding (principal); K22.11 Ulcer of esophagus with bleeding; D64.9 Anemia, unspecified; N18.9 Chronic kidney disease, unspecified; K44.9 Diaphragmatic hernia without obstruction or gangrene; K31.7 Polyp of stomach and duodenum; K21.9 Gastro-esophageal reflux disease without esophagitis; I25.10 Atherosclerotic heart disease of native coronary artery without angina pectoris; J45.909 Unspecified asthma, uncomplicated; Z95.1 Presence of aortocoronary bypass graft; Z91.018 Allergy to other foods; Z79.899 Other long term (current) drug therapy
CPT/HCPCS: 36415; 74176; 80048; 80053; 85014; 85018; 85025; 85610; 85730; 86850; 86900; 86901; 96365; 99291; G0378; J2003; J2250; J2704

== ENCOUNTER 2025-04-14 14:25 | Inpatient (IN) | payer MEDICAID ==
[~2025-04-14] VITALS: Ht 177.8 cm; Wt 90.0 kg
--- NOTE | 2025-04-14 15:39 | ED.PDOC ---
GI ASSESSMENT HPI Comments 49 y.o male presents to the ED via EMS for a chief complaint of hematemesis associated with epigastric pain that started 2 days ago. Patient describes emesis as dark red with no clotting noted. Patient was diagnosed with esophageal varices by his GI Dr. Christopher and is on Protonix and sucralfate. Patient has active pain that is non radiating. He denies any diarrhea, fever, chills, rectal bleeding. Chief Complaint: GI Bleed Time Seen by MD: 14:36 Primary Care Provider: ECTOR Reviewed Notes: Nurses Notes, Medications, Allergies Allergies: Coded Allergies: Kiwi Extract (Verified Allergy, Severe, 08/15/23) Uncoded Allergies: KIWI (Allergy, Unknown, 05/05/21) Home Meds Active Scripts Pantoprazole Sodium Sesquihydr (Protonix) 40 Mg Tab, 40 MG PO BID, #60 TAB Prov:DOMINGUEZ JONES Nomi BARREL FILLER 06/09/23 Reported Medications Sucralfate (Sucralfate) 1 Gm Tab, 1 TAB PO QID 10/12/21 Information Source: Patient Mode of Arrival: Ambulatory Timing: Days (2) Duration: Since onset Quality: Burning, Sharp Vomitus: Bloody, Bright Red Bood Stool: Normal Severity: Moderate Recent: None Recent Hx of: None Pain Location: Epigastric Modifying Factors: Nothing Associated sign and symptoms: Hematemesis, Abdominal Pain Past Medical History PAST MEDICAL HISTORY: Anemia, Asthma, GERD Past Medical History (Other): esophageal varices Surgical History: CABG Family History Family History: Unknown Social History Smoker: Non-Smoker Alcohol: Occasionally Drugs: Denies Drug Use Lives In: Home Constitutional: denies: chills, diaphoresis, fatigue, fever, malaise, sweats, weakness, others EENTM: denies: blurred vision, double vision, ear bleeding, ear discharge, ear drainage, ear pain, ear ringing, eye pain, eye redness, hearing loss, mouth pain, mouth swelling, nasal discharge, nose bleeding, nose congestion, nose pain, photophobia, tearing, throat pain, throat swelling, voice changes, others Respiratory: denies: cough, hemoptysis, orthopnea, SOB at rest, shortness of breath, SOB with excertion, stridor, wheezing, others Cardiovascular: denies: chest pain, dizzy spells, diaphoresis, Dyspnea on exertion, edema, irregular heart beat, left arm pain, lightheadedness, palpitations, PND, syncope, others Gastrointestinal: reports: abdominal pain, hematemesis, nausea; denies: abdomen distended, blood streaked bowels, constipated, diarrhea, dysphagia, difficulty swallowing, melena, poor appetite, poor fluid intake, rectal bleeding, rectal pain, vomiting, others Genitourinary: denies: burning, dysuria, flank pain, frequency, hematuria, incontinence, penile discharge, penile sore, pain, testicle pain, testicle swelling, urgency, others Neurological: denies: dizziness, fainting, headache, left sided numbness, left sided weakness, numbness, paresthesia, pre-existing deficit, right sided numbness, right sided weakness, seizure, speech problems, tingling, tremors, weakness, others Musculoskeletal: denies: back pain, gout, joint pain, joint swelling, muscle pain, muscle stiffness, neck pain, others Integumetry: denies: bruises, change in color, change in hair/nails, dryness, laceration, lesions, lumps, rash, wounds, others Allergic/Immunocompromised: denies: Difficulty Healing, Frequent Infections, Hives, Itching, others Hematologic/Lymphatic: denies: anemia, blood clots, easy bleeding, easy bruising, swollen glands, others Endocrine: denies: excessive hunger, excessive sweating, excessive thirst, excessive urination, flushing, intolerance to cold, intolerance to heat, unexplained weight gain, unexplained weight loss, others Psychiatric: denies: anxiety, bipolar disorder, depression, hopeless, panic disorder, schizophrenia, sleepless, suicidal, others All Other Systems: Reviewed and Negative Physical Exam General Appearance: Moderate Distress HEENT: Normal ENT Inspection, Pharynx Normal, TMs Normal Neck: Full Range of Motion, Non-Tender, Normal, Normal Inspection Respiratory: Chest Non-Tender, Lungs Clear, No Accessory Muscle Use, No Respiratory Distress, Normal Breath Sounds Cardiovascular: No Edema, No JVD, No Murmur, No Gallop, Normal Peripheral Pulses, Regular Rate/Rhythm Breast Exam: Deferred Gastrointestinal: No Organomegaly, Non Tender, No Pulsatile Mass, Normal Bowel Sounds, Soft Genitalia: Deferred Pelvic: Deferred Rectal: Deferred Extremities: No calf tenderness, Normal capillary refill, Normal inspection, Normal range of motion, Non-tender, No pedal edema Musculoskeletal : Apperance: Normal Neurologic: Alert, animal surgeon II-XII nml as Tested, No Motor Deficits, Normal Affect, Normal Mood, No Sensory Deficits Cerebellar Function: NOT DONE Reflexes: NOT DONE Skin: Dry, Normal Color, Warm Peripheral Pulses: 3+ Radial (R), 3+ Radial (L) Lymphatic: No Adenopathy Was a procedure done? Was a procedure done?: No GI differential Dx Differential Diagnosis: Constipation, Diverticular disease, Esophagitis, Gastritis/PUD, GI hemorrhage, Anemia, Esophageal Varicies, Stress Ulcer X-Ray, Labs, Meds, VS Vital Signs Date Time Temp Pulse Resp B/P (MAP) Pulse Ox O2 Delivery O2 Flow Rate FiO2 04/14/25 14:56 98.3 99 18 146/99 99 98.3 Lab Test 04/14/25 15:30 Range/Units White Blood Count 15.1 H 4.4-10.8 10^3/uL Red Blood Count 5.40 4.5-5.90 10^6/uL Hemoglobin 7.3 L 13.5-17.5 g/dL Hematocrit 27.9 L 41.0-53.0 % Mean Corpuscular Volume 51.8 L 80.0-100.0 fL Mean Corpuscular Hemoglobin 13.6 L 28.0-32.0 pg Mean Corpuscular Hemoglobin Concent 26.3 L 32.0-36.0 g/dL Red Cell Distribution Width 21.0 H 11.8-14.3 % Platelet Count 380 140-450 10^3/uL Mean Platelet Volume 8.0 6.9-10.8 fL Neutrophils (%) (Auto) 37.0-80.0 % Lymphocytes (%) (Auto) 10.0-50.0 % Monocytes (%) (Auto) 0.0-12.0 % Basophils (%) (Auto) 0.0-2.0 % Neutrophils # (Auto) 1.6-8.6 10 ^3/uL Lymphocytes # (Auto) 0.4-5.4 10 ^3/uL Monocytes # (Auto) 0-1.3 10 ^3/uL Differential Total Cells Counted 100.0 100 Neutrophils % (Manual) 88 H 37.0-80.0 Band Neutrophils % (Manual) 0 Lymphocytes % (Manual) 4 L 10.0-50.0 Monocytes % (Manual) 8 0-12 Eosinophils % (Manual) 0 0-7 Basophils % (Manual) 0 0.0-2.0 Metamyelocytes % (manual) 0 Myelocytes % (Manual) 0 Promyelocytes % (Manual) 0 Blast Cells % (Manual) 0 Reactive Lymphocytes 0 Platelet Estimate Adequate Hypochromasia (manual) Moderate Poikilocytosis (manual) Slight Anisocytosis (manual) Slight Microcytosis Moderate Ovalocytes Few Stomatocytes Few Sodium Level 138 136-145 mmol/L Potassium Level 4.9 3.5-5.1 mmol/L Chloride Level 96 L 98-107 mmol/L Carbon Dioxide Level 29 20-31 mmol/L Anion Gap 13 5-15 Blood Urea Nitrogen 25 H 9-23 mg/dL Creatinine 1.86 H 0.700-1.30 mg/dL Glomerular Filtration Rate Calc 44 >90 mL/min BUN/Creatinine Ratio 13.4 10.0-20.0 Serum Glucose 133 H 74-106 mg/dL Calcium Level 10.0 8.7-10.4 mg/dL Troponin I High Sensitivity 8 </=54 ng/L Patient alert. Complaining of vomiting of blood. Vitals stable. Answering questions. History of vasovagal varices. Establish intravenous access. Was given fluids. Was given Protonix. GI consultation WBC elevated. Was given Rocephin. Was given Flagyl. Explained to the patient Continue monitoring. Time of 1ST Reevaluation: 15:36 Reevaluation 1ST: Unchanged Patient Education/Counseling: Diagnosis, Treatment, Prognosis Family Education/Counseling: No Family Present SEPSIS Sepsis Screen Date sepsis recognized/suspect: Apr 14, 2025 Time Sepsis recognized/suspect: 1430 Recent Procedure: No On Antibiotic Therapy: No Respiratory Rate >20: No Heart Rate >90: No Temp<36 C (96.8 F) or >38.3 C: No SBP <90 or MAP <65 mmHG: No New Acute Mental Status Change: No Is the patient on CPAP, BIPAP,: No Physician Orders Chest Portable (04/14/25 15:13) Urinalysis (04/14/25 15:13) Sodium Chloride 0.9% (04/14/25 15:15) Pantoprazole 40mg/50ml Ns Ae (Protonix) (10/19/25 15:15) Vital Signs Date Time Temp Pulse Resp B/P (MAP) Pulse Ox O2 Delivery O2 Flow Rate FiO2 04/14/25 14:56 98.3 99 18 146/99 99 98.3 Laboratory Tests Test 04/14/25 15:30 White Blood Count 15.1 10^3/uL (4.4-10.8) H Departure 1 Departure Time of Disposition: 16:56 Impression: Primary Impression: Upper GI bleed Additional Impression: Erosive esophagitis Disposition: ADMITTED INPATIENT Admit to: Med Surg Condition: Guarded Critical Care Note Critical Care Time?: No Stability Stability form required: No I personally scribed for EVA TUTTLE MD ([email or web address]) on 04/14/25 at 15:39. Electronically submitted by Dee Dee Kimball ([facility]). EVA TUTTLE MD Apr 14, 2025 15:39
--- NOTE | 2025-04-14 15:45 | DVH ---
CHEST RADIOGRAPH Indication: sob Technique: Single frontal view of the chest was obtained Comparison: XY CHEST PORTABLE on DOS: 08/15/23, XY CHEST XRAY 1 VIEW on DOS: 06/07/23, CHEST XRAY 1 EW on DOS: 08/14/22 FINDINGS: Lines and Tubes: None Lungs: No focal consolidation. Small metallic densities overlying the left chest wall left hemithorax which may represent small pellets. Pleura: No effusion. No pneumothorax. Cardiomediastinal contours: Unremarkable Bones: No acute osseous abnormality. IMPRESSION: No acute cardiopulmonary disease.
[2025-04-14 15:54] LABS: Potassium 4.9 mmol/L (3.5-5.1); Sodium 138 mmol/L (136-145)
[2025-04-14 15:55] LABS: Anion Gap 13 (5-15); Calcium 10.0 mg/dL (8.7-10.4); Carbon Dioxide 29 mmol/L (20-31); Chloride 96 mmol/L (98-107)
[2025-04-14 16:00] LABS: BUN/Creatinine Ratio 13.4 (10.0-20.0)
[2025-04-14 16:05] LABS: Blood Urea Nitrogen 25 mg/dL (9-23); Glucose 133 mg/dL (74-106)
[2025-04-14 16:24] LABS: Hematocrit 27.9 % (41.0-53.0); Hemoglobin 7.3 g/dL (13.5-17.5); Mean Corpuscular Hemoglobin 13.6 pg (28.0-32.0); Mean Corpuscular Volume 51.8 fL (80.0-100.0)
[2025-04-14 16:48] LABS: Anisocytosis Slight; Ovalocytes FEW; Stomatocytes Few; Total Cells Counted 100.0 (100)
[2025-04-14] MEDS: ONDANSETRON HCL 4 MG/2 ML VIAL IV ONE (19:02)
[2025-04-14] MEDS: HYDROmorphone HCL 2 MG/ML VL/or syr IV ONE (19:03)
[2025-04-14] MEDS: SODIUM CHLORIDE 0.9% 1,000 ML IV ONE ×3 (19:06→23:57)
[2025-04-14] MEDS: PANTOPRAZOLE 40mg/50ML NS AE 50 ML IV ONE (19:09)
[2025-04-14 19:18] VITALS: PULSE 113; RESP 18; O2SAT 100
[2025-04-14] MEDS: PANTOPRAZOLE 40mg/50ML NS AE 50 ML IV SCH (22:34)
[2025-04-15] VITALS (10 sets, daily range): BP systolic 108–121; BP diastolic 64–80; PULSE 73–109; RESP 15–18; TEMP 98.6–99.6; O2SAT 94–100
[2025-04-15 02:03] LABS: Hematocrit 25.8 % (41.0-53.0)
[2025-04-15 02:18] LABS: Hemoglobin 6.8 g/dL (13.5-17.5)
--- NOTE | 2025-04-15 04:03 | DVHHP2 ---
History of Present Illness Reason for Visit: GI bleed History of Present Illness 41-year-old male presents for evaluation GI bleed. Patient reports a two day history of epigastric abdominal pain with associated coffee-ground emesis. Currently denies nausea or abdominal pain. No cardiac or respiratory complaints. Past Medical History GERD, asthma, anemia, esophageal varices Past Surgical History CABG Family History Noncontributory Smoke: No ALCOHOL: none Drugs: None Lives: with Family Review of Systems Review of Systems Review of systems are currently negative otherwise addressed in HPI. Allergies: Coded Allergies: Kiwi Extract (Verified Allergy, Severe, 08/15/23) Uncoded Allergies: KIWI (Allergy, Unknown, 05/05/21) Medications Current Medications Medications Dose Ordered Sig/Sandra Route Start Time Stop Time Status Last Admin Dose Admin Pantoprazole Sodium 50 ml @ 10 mls/hr Q5H IV 04/14/25 20:15 04/15/25 01:41 10 MLS/HR Ondansetron HCl 4 mg Q4HP PRN IV 04/14/25 20:15 Exam Vital Signs Vital Signs Date Time Temp Pulse Resp B/P (MAP) Pulse Ox O2 Delivery O2 Flow Rate FiO2 04/15/25 03:00 98.7 109 18 100/64 (76) 94 98.7 04/14/25 19:18 Room Air* 0 21 Exam Gen: 49-year-old male in mild distress Skin: Warm, dry, normal color and texture, no rash. HEENT: Normocephalic atraumatic, mucous membranes moist and pink. Neck: Cervical and supraclavicular nodes normal without enlargement, trachea is midline, thyroid gland is normal without masses. Pulmonary: Clear to auscultation and percussion bilaterally. Cardiac: Regular rate and rhythm. No murmur Abdomen: Soft, nontender, nondistended, bowel sounds present all 4 quadrants, no guarding, no rigidity, no organomegaly. Extremities: No cyanosis, clubbing, no edema Neuro: Cranial nerves II through XII grossly intact, normal affect and speech, n o focal motor deficits. Labs/Xrays ORDERING PHYSICIAN: EVA TUTTLE MD PROCEDURE(s): CXRP - CHEST PORTABLE REASON: sob ORDER NUMBER(s): [id number], ACCESSION NUMBER(s): [id number] CHEST RADIOGRAPH Indication: sob Technique: Single frontal view of the chest was obtained Comparison: XY CHEST PORTABLE on DOS: 08/15/23, XY CHEST XRAY 1 VIEW on DOS: 06/07/23, CHEST XRAY 1 VIEW on DOS: 08/14/22 FINDINGS: Lines and Tubes: None Lungs: No focal consolidation. Small metallic densities overlying the left chest wall left hemithorax which may represent small pellets. Pleura: No effusion. No pneumothorax. Cardiomediastinal contours: Unremarkable Bones: No acute osseous abnormality. IMPRESSION: No acute cardiopulmonary disease. Labs Test 04/15/25 01:38 04/14/25 15:30 Range/Units Hemoglobin 6.8 *L 13.5-17.5 g/dL Hematocrit 25.8 L 41.0-53.0 % White Blood Count 15.1 H 4.4-10.8 10^3/uL Red Blood Count 5.40 4.5-5.90 10^6/uL Mean Corpuscular Volume 51.8 L 80.0-100.0 fL Mean Corpuscular Hemoglobin 13.6 L 28.0-32.0 pg Mean Corpuscular Hemoglobin Concent 26.3 L 32.0-36.0 g/dL Red Cell Distribution Width 21.0 H 11.8-14.3 % Platelet Count 380 140-450 10^3/uL Mean Platelet Volume 8.0 6.9-10.8 fL Neutrophils (%) (Auto) 37.0-80.0 % Lymphocytes (%) (Auto) 10.0-50.0 % Monocytes (%) (Auto) 0.0-12.0 % Basophils (%) (Auto) 0.0-2.0 % Neutrophils # (Auto) 1.6-8.6 10 ^3/uL Lymphocytes # (Auto) 0.4-5.4 10 ^3/uL Monocytes # (Auto) 0-1.3 10 ^3/uL Differential Total Cells Counted 100.0 100 Neutrophils % (Manual) 88 H 37.0-80.0 Band Neutrophils % (Manual) 0 Lymphocytes % (Manual) 4 L 10.0-50.0 Monocytes % (Manual) 8 0-12 Eosinophils % (Manual) 0 0-7 Basophils % (Manual) 0 0.0-2.0 Metamyelocytes % (manual) 0 Myelocytes % (Manual) 0 Promyelocytes % (Manual) 0 Blast Cells % (Manual) 0 Reactive Lymphocytes 0 Platelet Estimate Adequate Hypochromasia (manual) Moderate Poikilocytosis (manual) Slight Anisocytosis (manual) Slight Microcytosis Moderate Ovalocytes Few Stomatocytes Few Sodium Level 138 136-145 mmol/L Potassium Level 4.9 3.5-5.1 mmol/L Chloride Level 96 L 98-107 mmol/L Carbon Dioxide Level 29 20-31 mmol/L Anion Gap 13 5-15 Blood Urea Nitrogen 25 H 9-23 mg/dL Creatinine 1.86 H 0.700-1.30 mg/dL Glomerular Filtration Rate Calc 44 >90 mL/min BUN/Creatinine Ratio 13.4 10.0-20.0 Serum Glucose 133 H 74-106 mg/dL Calcium Level 10.0 8.7-10.4 mg/dL Troponin I High Sensitivity 8 </=54 ng/L SEPSIS Sepsis Screen Date sepsis recognized/suspect: Apr 14, 2025 Time Sepsis recognized/suspect: 0 Recent Procedure: No On Antibiotic Therapy: No Respiratory Rate >20: No Heart Rate >90: No Temp<36 C (96.8 F) or >38.3 C: No SBP <90 or MAP <65 mmHG: No New Acute Mental Status Change: No Is the patient on CPAP, BIPAP,: No Physician Orders Pantoprazole 40mg/50ml Ns Ae (Protonix) (04/14/25 20:15) * Gi Dvh Regulator Assembler (04/14/25 20:11) Sodium Chloride 0.9% (04/14/25 20:15) Ondansetron Hcl (Zofran) (04/14/25 20:15) Complete Blood Count (04/15/25 04:00) Comprehensive Metabolic Panel (04/15/25 04:00) Npo (Nothing By Mouth) Diet (04/15/25 Breakfast) Condition: Stable (04/14/25 20:11) Bedrest With Bathroom Privileg (04/14/25 20:11) Type And Screen (04/15/25 02:47) Ct Ab Pel Wo Con-No Oral Or Iv (04/15/25 03:47) Packedcells -Active Bleeding (04/15/25 03:47) PTPTT (04/15/25 03:47) Transfer Orders (04/15/25 03:59) Vital Signs Date Time Temp Pulse Resp B/P (MAP) Pulse Ox O2 Delivery O2 Flow Rate FiO2 04/15/25 03:00 98.7 109 18 100/64 (76) 94 98.7 04/14/25 22:42 99 14 178/58 Medications Medications Dose Ordered Sig/Sandra Route Start Time Stop Time Status Last Admin Dose Admin Ceftriaxone Sodium 50 ml @ 100 mls/hr ONCE ONCE IV 04/14/25 17:00 04/14/25 17:29 DC 04/14/25 19:15 100 MLS/HR Metronidazole 100 ml @ 100 mls/hr ONCE ONCE IV 04/14/25 17:00 04/14/25 17:59 DC 04/14/25 22:26 100 MLS/HR Pantoprazole Sodium 50 ml @ 10 mls/hr Q5H IV 04/14/25 20:15 04/15/25 01:41 10 MLS/HR Sodium Chloride 1,000 ml @ 100 mls/hr Q10H ONCE IV 04/14/25 20:15 04/15/25 06:14 04/14/25 23:57 100 MLS/HR Assessment/Plan Assessment/Plan Assessment Upper GI bleed Acute kidney injury Plan Admit the patient to telemetry to the hospitalist Transfuse 2 units of packed red cells GI consultation NPO Continue Protonix drip Maintenance IV fluids Continue treatment per orders. Plan discussed with: Patient My Orders Orders - MARIA ELENA RICKETTS AGACNP Procedure Category Date Status Time Admit ADMIT 04/14/25 Transmitted 19:53 Pantoprazole PHA 04/14/25 In Process 40mg/50ml Ns Ae 20:15 * Gi Dvh Regulator Assembler CONS 04/14/25 Transmitted 20:11 Sodium Chloride 0.9% PHA 04/14/25 In Process 20:15 Ondansetron Hcl PHA 04/14/25 In Process (Zofran) 20:15 Complete Blood Count LAB 04/15/25 Logged 04:00 Comprehensive LAB 04/15/25 Logged Metabolic Panel 04:00 Npo (Nothing By DIET 04/15/25 Transmitted Mouth) Diet Breakfast Condition: Stable BROCK 04/14/25 In Process 20:11 Bedrest With Bathroom BROCK 04/14/25 In Process Privileg 20:11 Type And Screen BBK 04/15/25 In Process 02:47 Ct Ab Pel Wo Con-No CT 04/15/25 Logged Oral Or Iv 03:47 Packedcells -Active BBK 04/15/25 Logged Bleeding 03:47 PTPTT LAB 04/15/25 Logged 03:47 Transfer Orders XFER 04/15/25 Transmitted 03:59 Date of Service: Apr 14, 2025 Billing Provider: MARIA ELENA RICKETTS Common Visit Codes: [id number] INP/OBS CARE (HIGH) MARIA ELENA RICKETTS Apr 15, 2025 04:03
[2025-04-15] MEDS: ONDANSETRON HCL 4 MG/2 ML VIAL IV PRN (04:20)
[2025-04-15 04:25] LABS: Hematocrit 24.1 % (41.0-53.0); Mean Corpuscular Hemoglobin 13.9 pg (28.0-32.0); Mean Corpuscular Volume 52.9 fL (80.0-100.0); Nucleated Red Blood Cells % 0.1 %
[2025-04-15 04:27] LABS: Hemoglobin 6.3 g/dL (13.5-17.5)
[2025-04-15 04:38] LABS: INR 1.08 (0.9-1.15); Partial Thromboplastin Time 24.5 SEC (24.5-34.5); Prothrombin Time 11.4 sec (9.3-11.8)
[2025-04-15 04:44] LABS: Albumin 4.0 g/dL (3.2-4.8); Alkaline Phosphatase 62 U/L (46-116); Calcium 8.7 mg/dL (8.7-10.4); Carbon Dioxide 29 mmol/L (20-31); Chloride 100 mmol/L (98-107)
[2025-04-15 04:45] LABS: Anion Gap 11 (5-15); BUN/Creatinine Ratio 16.4 (10.0-20.0); Bilirubin, Total 0.9 mg/dL (0.2-1.0); Potassium 3.8 mmol/L (3.5-5.1); Sodium 140 mmol/L (136-145); Total Protein 7.2 g/dL (5.7-8.2)
[2025-04-15 05:08] LABS: Alanine Aminotransferase < 9 U/L (7-40); Blood Urea Nitrogen 28 mg/dL (9-23); Glucose 123 mg/dL (74-106)
--- NOTE | 2025-04-15 05:48 | DVH ---
Exam: CT CT AB PEL WO CON-NO ORAL OR IV History: GI bleed. Comparison Study: CT CT AB PEL WO CON-NO ORAL OR IV on DOS: 09/11/24 Technique: Multidetector spiral CT of the abdomen and pelvis was performed from lung bases to pubic s ymphysis. Imaging was performed without intravenous contrast. Coronal and sagittal multiplanar reform ats were obtained from the axial data set by the technologist. Radiation Dose : 1. Abdomen/Pelvis: CTDIvol 18.2 mGy, DLP 1032.2 mGy*cm. Findings: Evaluation of vasculature and solid organs is limited due to lack of intravenous contrast use. Lung Bases: Lung bases are clear. Visualized portions of the heart and pericardium are unremarkable. Liver: The liver is normal in size. No focal lesions. Gallbladder and Biliary Tree: The gallbladder is unremarkable. No intrahepatic or extrahepatic bilia ry ductal dilatation. Spleen: Unremarkable Pancreas: The pancreas is grossly unremarkable. Adrenal Glands: Unremarkable Kidneys: There is an 8 mm nonobstructive calculus in the upper pole of the left kidney. The right kid mitesh is unremarkable. GI tract: There is a hiatal hernia. No evidence of small bowel wall thickening or dilatation. There i s colonic diverticulosis without acute diverticulitis. Normal appendix. Peritoneum/mesentery/retroperitoneum. No evidence of free intraperitoneal air. No ascites. No evidenc e of suspicious lymphadenopathy. Abdominal Wall: No evidence of mass or fluid collection. There are several metallic densities in the left chest wall. Vasculature: The visualized abdominal aorta is normal in size and caliber. Evaluation of abdominal a nd pelvic vessels is limited due to lack of intravenous contrast. Urinary Bladder: Grossly unremarkable for degree of distention. Pelvic Organs: Unremarkable Musculoskeletal: No aggressive focal bony lesions, acute fractures or dislocation. There is L4 compre ssion deformity. Multilevel lumbar spondylosis. IMPRESSION: 1. No acute abdominal or pelvic findings. 2. Colonic diverticulosis without acute diverticulitis. 3. Hiatal hernia. 4. Nonobstructive left renal calculus.
[2025-04-15] MEDS ORDERED: METOCLOPRAMIDE HCL 5MG/ml INJ 2ml VIAL IV PRN (16:45)
[2025-04-15] MEDS: D5W/SOD CHL 0.45% 1,000 ML IV SCH (17:14)
[2025-04-15 17:27] LABS: Hematocrit 28.5 % (41.0-53.0); Hemoglobin 7.8 g/dL (13.5-17.5)
--- NOTE | 2025-04-15 18:08 | DVHPN2 ---
Reviewed: H&P Changes from previous H/P or p: No Changes General: Per HPI Objective Vitals Vital Signs Date Time Temp Pulse Resp B/P (MAP) Pulse Ox O2 Delivery O2 Flow Rate FiO2 04/15/25 14:00 71 19 119/57 (77) 96 04/15/25 09:20 99.6 99.6 04/15/25 07:30 Room Air* 0 21 Intake/Output Intake and Output 04/15/25 07:00 Intake Total 1450 ml Output Total 400 ml Balance 1050 ml IV Total 1150 ml Blood Product 300 ml Emesis 400 ml Exam Gen: 49-year-old male in mild distress Skin: Warm, dry, normal color and texture, no rash. HEENT: Normocephalic atraumatic, mucous membranes moist and pink. Neck: Cervical and supraclavicular nodes normal without enlargement, trachea is midline, thyroid gland is normal without masses. Pulmonary: Clear to auscultation and percussion bilaterally. Cardiac: Regular rate and rhythm. No murmur Abdomen: Soft, nontender, nondistended, bowel sounds present all 4 quadrants, no guarding, no rigidity, no organomegaly. Extremities: No cyanosis, clubbing, no edema Neuro: Cranial nerves II through XII grossly intact, normal affect and speech, no focal motor deficits. Medications Current Medications Medications Dose Ordered Sig/Sandra Route Start Time Stop Time Status Last Admin Dose Admin Pantoprazole Sodium 50 ml @ 10 mls/hr Q5H IV 04/14/25 20:15 04/15/25 11:04 10 MLS/HR Ondansetron HCl 4 mg Q4HP PRN IV 04/14/25 20:15 04/15/25 04:20 4 MG Metoclopramide HCl 10 mg TIDP PRN IV 04/15/25 16:45 Dextrose/Sodium Chloride 1,000 ml @ 50 mls/hr Q20H IV 04/15/25 16:45 04/15/25 17:14 50 MLS/HR Laboratory Results Laboratory Tests 04/15/25 04:04 04/15/25 17:05 Chemistry Test 04/15/25 04:04 Albumin 4.0 g/dL (3.2-4.8) Calcium Level 8.7 mg/dL (8.7-10.4) Total Protein 7.2 g/dL (5.7-8.2) Coagulation Test 04/15/25 04:04 Prothrombin Time 11.4 sec (9.3-11.8) Prothrombin Time INR 1.08 (0.9-1.15) Activated Partial Thromboplast Time 24.5 SEC (24.5-34.5) LFT Test 04/15/25 04:04 Alanine Aminotransferase (ALT) < 9 U/L (7-40) Alkaline Phosphatase 62 U/L (46-116) Aspartate Amino Transferase (AST) 9 U/L (13-40) L Total Bilirubin 0.9 mg/dL (0.2-1.0) Labs and/or images reviewed: Labs reviewed by me, Image(s) reviewed by me Assessment/Plan Assessment/Plan 41-year-old male presents for evaluation GI bleed. Patient reports a two day history of epigastric abdominal pain with associated coffee-ground emesis. Currently denies nausea or abdominal pain. No cardiac or respiratory complaints. Past Medical History GERD, asthma, anemia, esophageal varices Diagnosis: Upper GI bleed Acute kidney injury Plan: - HB>7, pRBC if needed - GI following, - ice chips ok - d5 half NS when npo. at maintenance - q12h/h - npo except meds. continue home meds tele full code Plan discussed with: Patient My Orders Orders - PRETTY KINGSTON MD Procedure Category Date Status Time Metoclopramide PHA 04/15/25 In Process Injection (Reglan 16:45 D5w/Sod Chl 0.45% PHA 04/15/25 In Process (D5w 1/2ns) 16:45 Date of Service: Apr 15, 2025 Billing Provider: PRETTY KINGSTON MD Common Visit Codes: [id number] INP/OBS CARE(HIGH) PRETTY KINGSTON MD Apr 15, 2025 18:08
--- NOTE | 2025-04-15 20:46 | DVHINCON2 ---
Date of service: Apr 15, [address] Aviles Reason for Consultation Hematemesis liver disease History of Present Illness This 49-year-old male presented to the emergency room with complaints of hematemesis associated with the epigastric pain. Patient has got history of cirrhosis with the esophageal varices for which she had had endoscopy done with the including treatment for the varices. Patient is on Protonix and sucralfate patient had hematemesis for the last few days. Past Medical History History of cirrhosis esophageal varices Past Surgical History Anemia asthma GERD also surgically variceal banding Family History: Diabetes mellitus G8 BROTHER G8 BROTHER FH: liver cancer FH: lung cancer GRANDMOTHER FHx: liver cancer GRANDMOTHER, Onset:Unknown ( AT AGE 68) FHx: uterine cancer GRANDMOTHER (UNKNKONW AT AGE 30) Allergies: Coded Allergies: Kiwi Extract (Verified Allergy, Severe, 08/15/23) Uncoded Allergies: KIWI (Allergy, Unknown, 05/05/21) Home Meds Active Scripts Pantoprazole Sodium Sesquihydr (Protonix) 40 Mg Tab, 40 MG PO BID, #60 TAB Prov:DOMINGUEZ JONES NP 06/09/23 Reported Medications Sucralfate (Sucralfate) 1 Gm Tab, 1 TAB PO QID 10/12/21 Current Medications Current Medications Medications (Trade) Dose Ordered Sig/Sandra Route PRN Reason Start Time Stop Time Status Last Admin Metoclopramide HCl (Reglan Injection) 10 mg TIDP PRN IV per MD, for Hiccups 04/15/25 16:45 Dextrose/Sodium Chloride 1,000 ml @ 50 mls/hr Q20H IV 04/15/25 16:45 04/15/25 17:14 Review of Systems Noncontributory Vital Signs Vital Signs Date Time Temp Pulse Resp B/P (MAP) Pulse Ox O2 Delivery O2 Flow Rate FiO2 04/15/25 18:00 82 16 123/69 (87) 99 04/15/25 09:20 99.6 99.6 04/15/25 07:30 Room Air* 0 21 Physical Exam Moderately built and nourished male in no acute distress Vitals stable Lungs clear ENT examination mild pallor Abdomen is soft no tenderness no rigidity no guarding no mass bowel sounds normal Extremities no edema Labs/Diagnostic Data Labs Test 04/15/25 17:05 10/20/25 04:04 04/14/25 15:30 Range/Units Hemoglobin 7.8 #L 13.5-17.5 g/dL Hematocrit 28.5 #L 41.0-53.0 % Ammonia 31 11-32 umol/L White Blood Count 12.1 H 4.4-10.8 10^3/uL Red Blood Count 4.55 4.5-5.90 10^6/uL Mean Corpuscular Volume 52.9 L 80.0-100.0 fL Mean Corpuscular Hemoglobin 13.9 L 28.0-32.0 pg Mean Corpuscular Hemoglobin Concent 26.2 L 32.0-36.0 g/dL Red Cell Distribution Width 21.0 H 11.8-14.3 % Platelet Count 294 140-450 10^3/uL Mean Platelet Volume 8.0 6.9-10.8 fL Neutrophils (%) (Auto) 84.6 H 37.0-80.0 % Lymphocytes (%) (Auto) 9.2 L 10.0-50.0 % Monocytes (%) (Auto) 5.7 0.0-12.0 % Eosinophils (%) (Auto) 0.1 0.0-7.0 % Basophils (%) (Auto) 0.4 0.0-2.0 % Neutrophils # (Auto) 10.2 H 1.6-8.6 10 ^3/uL Lymphocytes # (Auto) 1.1 0.4-5.4 10 ^3/uL Monocytes # (Auto) 0.7 0-1.3 10 ^3/uL Eosinophils # (Auto) 0 0-0.8 10 ^3/uL Basophils # (Auto) 0.1 0-0.2 10 ^3/uL Nucleated Red Blood Cells 0.1 % Prothrombin Time 11.4 9.3-11.8 sec Prothrombin Time INR 1.08 0.9-1.15 Activated Partial Thromboplast Time 24.5 24.5-34.5 SEC Sodium Level 140 136-145 mmol/L Potassium Level 3.8 3.5-5.1 mmol/L Chloride Level 100 98-107 mmol/L Carbon Dioxide Level 29 20-31 mmol/L Anion Gap 11 5-15 Blood Urea Nitrogen 28 H 9-23 mg/dL Creatinine 1.71 H 0.700-1.30 mg/dL Glomerular Filtration Rate Calc 49 >90 mL/min BUN/Creatinine Ratio 16.4 10.0-20.0 Serum Glucose 123 H 74-106 mg/dL Calcium Level 8.7 8.7-10.4 mg/dL Total Bilirubin 0.9 0.2-1.0 mg/dL Aspartate Amino Transferase (AST) 9 L 13-40 U/L Alanine Aminotransferase (ALT) < 9 7-40 U/L Alkaline Phosphatase 62 46-116 U/L Total Protein 7.2 5.7-8.2 g/dL Albumin 4.0 3.2-4.8 g/dL Differential Total Cells Counted 100.0 100 Neutrophils % (Manual) 88 H 37.0-80.0 Band Neutrophils % (Manual) 0 Lymphocytes % (Manual) 4 L 10.0-50.0 Monocytes % (Manual) 8 0-12 Eosinophils % (Manual) 0 0-7 Basophils % (Manual) 0 0.0-2.0 Metamyelocytes % (manual) 0 Myelocytes % (Manual) 0 Promyelocytes % (Manual) 0 Blast Cells % (Manual) 0 Reactive Lymphocytes 0 Platelet Estimate Adequate Hypochromasia (manual) Moderate Poikilocytosis (manual) Slight Anisocytosis (manual) Slight Microcytosis Moderate Ovalocytes Few Stomatocytes Few Troponin I High Sensitivity 8 </=54 ng/L Assessment 41-year-old male with complaints of hematemesis history of cirrhosis of the liver with the esophageal varices for banding has been done by Dr. Christopher patient has got some abdominal pain as well as some hematemesis and was found to be anemic. Present GI bleeding probably from esophageal varices suggestions we will recommend to monitor the platelets coagulation INR and hemoglobin T Plan/Recommendation transfuse as necessary Recommend an EGD evaluation transfusion and stabilizing by Dr. Christopher when possible Thank you Dr. Bergeron Plan discussed with: Patient STEPHENIE BERGERON MD Apr 15, 2025 20:46
[2025-04-16] VITALS (8 sets, daily range): BP systolic 119–144; BP diastolic 66–78; PULSE 62–92; RESP 15–20; TEMP 98.1–98.7; O2SAT 93–97
[2025-04-16 06:50] LABS: Hematocrit 25.8 % (41.0-53.0); Hemoglobin 7.1 g/dL (13.5-17.5); Mean Corpuscular Hemoglobin 16.4 pg (28.0-32.0); Mean Corpuscular Volume 59.1 fL (80.0-100.0); Nucleated Red Blood Cells % 0.2 %
[2025-04-16 06:59] LABS: Albumin 3.7 g/dL (3.2-4.8); Alkaline Phosphatase 55 U/L (46-116); Anion Gap 8 (5-15); BUN/Creatinine Ratio 14.0 (10.0-20.0); Carbon Dioxide 28 mmol/L (20-31); Chloride 105 mmol/L (98-107); Glucose 94 mg/dL (74-106); Potassium 3.8 mmol/L (3.5-5.1); Sodium 141 mmol/L (136-145); Total Protein 6.4 g/dL (5.7-8.2)
[2025-04-16 07:01] LABS: Bilirubin, Total 1.0 mg/dL (0.2-1.0)
[2025-04-16 07:16] LABS: Alanine Aminotransferase < 9 U/L (7-40); Blood Urea Nitrogen 23 mg/dL (9-23); Calcium 8.4 mg/dL (8.7-10.4)
[2025-04-16 07:55] LABS: Anisocytosis Moderate; Ovalocytes FEW; Stomatocytes Few
--- NOTE | 2025-04-16 11:23 | DVHPN2 ---
Reviewed: H&P Changes from previous H/P or p: No Changes General: Per HPI Objective Vitals Vital Signs Date Time Temp Pulse Resp B/P (MAP) Pulse Ox O2 Delivery O2 Flow Rate FiO2 04/16/25 09:00 98.1 83 18 130/74 (92) 94 98.1 04/16/25 08:01 Room Air* 0 21 Intake/Output Intake and Output 04/16/25 07:00 Intake Total 840 ml Output Total 800 ml Balance 40 ml Intake Oral 0 ml IV Total 240 ml Blood Product 600 ml Output Urine Total 800 ml # Voids 1 Exam Gen: 49-year-old male in mild distress Skin: Warm, dry, normal color and texture, no rash. HEENT: Normocephalic atraumatic, mucous membranes moist and pink. Neck: Cervical and supraclavicular nodes normal without enlargement, trachea is midline, thyroid gland is normal without masses. Pulmonary: Clear to auscultation and percussion bilaterally. Cardiac: Regular rate and rhythm. No murmur Abdomen: Soft, nontender, nondistended, bowel sounds present all 4 quadrants, no guarding, no rigidity, no organomegaly. Extremities: No cyanosis, clubbing, no edema Neuro: Cranial nerves II through XII grossly intact, normal affect and speech, no focal motor deficits. Medications Current Medications Medications Dose Ordered Sig/Sandra Route Start Time Stop Time Status Last Admin Dose Admin Pantoprazole Sodium 50 ml @ 10 mls/hr Q5H IV 04/14/25 20:15 04/16/25 11:18 10 MLS/HR Ondansetron HCl 4 mg Q4HP PRN IV 04/14/25 20:15 04/15/25 04:20 4 MG Metoclopramide HCl 10 mg TIDP PRN IV 04/15/25 16:45 Dextrose/Sodium Chloride 1,000 ml @ 50 mls/hr Q20H IV 04/15/25 16:45 04/16/25 11:17 50 MLS/HR Laboratory Results Laboratory Tests 04/16/25 05:28 Chemistry Test 04/16/25 05:28 Albumin 3.7 g/dL (3.2-4.8) Calcium Level 8.4 mg/dL (8.7-10.4) L Total Protein 6.4 g/dL (5.7-8.2) LFT Test 04/16/25 05:28 Alanine Aminotransferase (ALT) < 9 U/L (7-40) Alkaline Phosphatase 55 U/L (46-116) Aspartate Amino Transferase (AST) 12 U/L (13-40) L Total Bilirubin 1.0 mg/dL (0.2-1.0) Labs and/or images reviewed: Labs reviewed by me, Image(s) reviewed by me Assessment/Plan Assessment/Plan 41-year-old male presents for evaluation GI bleed. Patient reports a two day history of epigastric abdominal pain with associated coffee-ground emesis. Currently denies nausea or abdominal pain. No cardiac or respiratory complaints. Past Medical History GERD, asthma, anemia, esophageal varices 04/16: Patient NPO, GI to evaluate. Hemoglobin down to 7.1 again, we will repeat another H and H this afternoon, continue Q 12 H and H. if no procedure plan we will resume diet full liquid diet. Diagnosis: Upper GI bleed Acute kidney injury Plan: - HB>7, pRBC if needed - GI following, - ice chips ok - d5 half NS when npo. at maintenance - q12h/h - npo except meds. continue home meds tele full code Plan discussed with: Patient My Orders Orders - PRETTY KINGSTON MD Procedure Category Date Status Time Metoclopramide PHA 04/15/25 In Process Injection (Reglan 16:45 D5w/Sod Chl 0.45% PHA 04/15/25 In Process (D5w 1/2ns) 16:45 Date of Service: Apr 16, 2025 Billing Provider: PRETTY KINGSTON MD Common Visit Codes: [id number] INP/OBS CARE(HIGH) PRETTY KINGSTON MD Apr 16, 2025 11:23
[2025-04-16] MEDS ORDERED: fentaNYL CITRATE 100 MCG/2 ML VL ONE (14:20)
[2025-04-16] MEDS ORDERED: MIDAZOLAM HCL 2MG/2ML 2ml VIAL (1mg/ml) ONE (14:20)
[2025-04-16] MEDS ORDERED: LIDOCAINE VISCOUS 2% 15ML UD ONE (14:24)
[2025-04-16] MEDS ORDERED: PROPOFOL 10 MG/ML 20 ML IV ONE (14:41)
--- NOTE | 2025-04-16 14:41 | DVHOP2 ---
Operative Report DATE OF OPERATION: 04/16/25 PROCEDURE: Upper Endoscopy with biopsy. PREOPERATIVE INDICATION: The patient is a 49 -year-old male undergoing endoscopy for anemia POSTOPERATIVE DIAGNOSES: 1. 2-3 cm sliding-type hiatal hernia with grade C erosive esophagitis, circumferential ulceration extending into the distal 5 cm of the esophagus and linear ulcers extending into the remaining 5-7 cm of the esophagus from which biopsies were obtained , Patient still has [id number] esophagitis the endoscopic finding is improved from previous examinations 2. Minimal gastro duodenitis otherwise normal examination up to the 2nd and 3rd part of the duodenum with good bile drainage and no active bleeding PROCEDURE PERFORMED BY: Elizabeth Christopher GI NURSE: Zack SCOPE: Olympus videoendoscope. ASA CLASS: 3 PREOPERATIVE MEDICATIONS: Ajay connolly, Dr. Cook PROCEDURE IN DETAIL: After obtaining an informed consent, the patient was placed on left lateral decubitus position. The patient was then sedated with the above medications. A bite block was placed between his teeth. The endoscope was then passed through the oropharynx, into the esophagus, and through the stomach and pylorus up to the second and third part of the duodenum. The endoscope was then withdrawn. The 2nd and 3rd part of the duodenal were normal. Duodenal bulb and postbulbar area showed minimal duodenitis. Duodenal biopsies were obtained The pre-pyloric area and antrum and body showed minimal gastritis and gastric biopsies were obtained. On retroflexion the fundus and cardia were normal. The endoscope was then withdrawn into the distal esophagus where the patient had a 2-3 cm sliding-type hiatal hernia grade C erosive esophagitis There was circumferential ulceration in the distal 5 cm of the esophagus and another 5-7 cm segment with linear ulcers from which biopsies were obtained Although the patient still had severe esophagitis the endoscopic finding is improved from previous examination. Esophageal biopsies were obtained The remaining proximal esophagus and oropharynx were unremarkable. The patient tolerated the procedure well without difficulty. COMPLICATIONS : None SPECIMENS: Duodenal biopsy Gastric biopsy Esophageal biopsies DISPOSITION: Transfer back to the floor Stable PLAN: 1. Await for biopsy result 2. Will place pt on Protonix 40 mg bid IV 3. Carafate suspension 1 g p.o. 4 times a day 4. Resume soft mechanical diet advance as tolerated 5. Patient may be a good candidate to consider for an outpatient Yrn fundoplication or trial of Voquenza 6. Patient has been advised a screening colonoscopy. Patient stated he had one done two years ago but there was no records Patient does want to eat food today and does not want a prep for a colonoscopy. He will follow up in my office as an outpatient to arrange the same follow up with his PCP to get a referral ELIZABETH CHRISTOPHER MD Apr 16, 2025 14:41
[2025-04-16 16:36] LABS: Hematocrit 27.9 % (41.0-53.0); Hemoglobin 7.5 g/dL (13.5-17.5)
[2025-04-16] MEDS: SUCRALFATE 1 GM/10 ML ORAL SUSP PO SCH (17:06)
[2025-04-16] MEDS ORDERED: PANTOPRAZOLE 40 MG/10 ML VIAL INJ IV SCH ×2 (22:00)
--- NOTE | 2025-04-17 09:07 | DVHDS2 ---
Discharge Summary Date of Admission Apr 14, 2025 at 19:53 Date of Discharge: Apr 16, 2025 Labs/Diagnostic Data: Laboratory Results Test 04/16/25 16:18 04/16/25 05:28 04/15/25 17:05 04/15/25 04:04 Hemoglobin 7.5 g/dL (13.5-17.5) Hematocrit 27.9 % (41.0-53.0) White Blood Count 5.9 10^3/uL (4.4-10.8) Red Blood Count 4.36 10^6/uL (4.5-5.90) Mean Corpuscular Volume 59.1 fL (80.0-100.0) Mean Corpuscular Hemoglobin 16.4 pg (28.0-32.0) Mean Corpuscular Hemoglobin Concent 27.7 g/dL (32.0-36.0) Red Cell Distribution Width 28.1 % (11.8-14.3) Platelet Count 239 10^3/uL (140-450) Mean Platelet Volume 8.0 fL (6.9-10.8) Neutrophils (%) (Auto) 66.1 % (37.0-80.0) Lymphocytes (%) (Auto) 23.6 % (10.0-50.0) Monocytes (%) (Auto) 7.9 % (0.0-12.0) Eosinophils (%) (Auto) 1.3 % (0.0-7.0) Basophils (%) (Auto) 1.1 % (0.0-2.0) Neutrophils # (Auto) 3.9 10 ^3/uL (1.6-8.6) Lymphocytes # (Auto) 1.4 10 ^3/uL (0.4-5.4) Monocytes # (Auto) 0.5 10 ^3/uL (0-1.3) Eosinophils # (Auto) 0.1 10 ^3/uL (0-0.8) Basophils # (Auto) 0.1 10 ^3/uL (0-0.2) Nucleated Red Blood Cells 0.2 % Platelet Estimate Adequate Hypochromasia (manual) Marked Poikilocytosis (manual) Slight Anisocytosis (manual) Moderate Microcytosis Marked Ovalocytes Few Stomatocytes Few Schistocytes Few Sodium Level 141 mmol/L (136-145) Potassium Level 3.8 mmol/L (3.5-5.1) Chloride Level 105 mmol/L (98-107) Carbon Dioxide Level 28 mmol/L (20-31) Anion Gap 8 (5-15) Blood Urea Nitrogen 23 mg/dL (9-23) Creatinine 1.64 mg/dL (0.700-1.30) Glomerular Filtration Rate Calc 51 mL/min (>90) BUN/Creatinine Ratio 14.0 (10.0-20.0) Serum Glucose 94 mg/dL (74-106) Calcium Level 8.4 mg/dL (8.7-10.4) Total Bilirubin 1.0 mg/dL (0.2-1.0) Aspartate Amino Transferase (AST) 12 U/L (13-40) Alanine Aminotransferase (ALT) < 9 U/L (7-40) Alkaline Phosphatase 55 U/L (46-116) Total Protein 6.4 g/dL (5.7-8.2) Albumin 3.7 g/dL (3.2-4.8) Ammonia 31 umol/L (11-32) Prothrombin Time 11.4 sec (9.3-11.8) Prothrombin Time INR 1.08 (0.9-1.15) Activated Partial Thromboplast Time 24.5 SEC (24.5-34.5) Test 04/14/25 15:30 Differential Total Cells Counted 100.0 (100) Neutrophils % (Manual) 88 (37.0-80.0) Band Neutrophils % (Manual) 0 Lymphocytes % (Manual) 4 (10.0-50.0) Monocytes % (Manual) 8 (0-12) Eosinophils % (Manual) 0 (0-7) Basophils % (Manual) 0 (0.0-2.0) Metamyelocytes % (manual) 0 Myelocytes % (Manual) 0 Promyelocytes % (Manual) 0 Blast Cells % (Manual) 0 Reactive Lymphocytes 0 Troponin I High Sensitivity 8 ng/L (</=54) Other Laboratory Tests 04/16/25 16:18 04/16/25 05:28 Brief Hx & Hospital Course: Presented for hematemesis, he was also found to be anemic given 2 units PRBC, O positive,. GI was consulted patient made NPO. Patient was taken into EGD on 04/16. EGD finding sliding hiatal hernia, esophageal ulcers, erosive esophagitis, gastroduodenitis. GI wanted to do colonoscopy but patient wanted to do it outpatient. Patient was transferred back to the floor. Thereafter patient left AMA. Patient left AMA. Patient seems all risks including doing so. Severe blood loss anemia, status post transfusion Upper GI bleed, hematemesis, ruled out acute bleed Sliding-type hiatal hernia Grade C erosive esophagitis Esophageal ulcers Gastroduodenitis Acute kidney injury GERD, asthma, anemia, esophageal varices Condition at Discharge: Fair Final Diagnosis/Problems List Upper GI bleed, hematemesis, ruled out acute bleed Sliding-type hiatal hernia Veronica erosive esophagitis Esophageal ulcers Gastroduodenitis Acute kidney injury GERD, asthma, anemia, esophageal varices Discharge Disposition: Home Discharge Instruct/Medications Scheduled Pantoprazole Sodium Sesquihydr (Protonix), 40 MG PO BID Sucralfate (Sucralfate), 1 TAB PO QID, (Reported) Discharge Statement: "Patient was advised to return to the ER or call 911 if any headaches, dizziness, shortness of breath, chest pain, abdominal pain, bleeding, fevers, or worsening of medical condition. Patient was counseled about treatment plan, medications, possible side effects, patientverbalized understanding. All questions were answered to the best of my ability. This discharge took greater then 30 minutes in planning, reviewing documentation, counseling the patient, and discussing with other team members." ASSESSMENT ASSESSMENT Assessment Date of Service: Apr 17, 2025 Billing Provider: PRETTY KINGSTON MD Common Visit Codes: 05610-OBT/OBS DISCH DAY >30min PRETTY KINGSTON MD Apr 17, 2025 09:06
== END 2025-04-16 20:10 | disposition left against medical advice (07) | DRG 243 ==
LOC: ER 14:25 → EDBD 14:25 → OVERFLOW 19:53 → WEST WING 04-15 22:06
PROVIDERS: ADMIT Student in an Organized Health Care Education/Training Program; ATTEND Student in an Organized Health Care Education/Training Program
PROC: 30233N1 Transfusion of Nonautologous Red Blood Cells into Peripheral Vein, Percutaneous Approach (ICD-10-PCS; principal; 2025-04-15)
PROC: 0DB98ZX Excision of Duodenum, Via Natural or Artificial Opening Endoscopic, Diagnostic (ICD-10-PCS; 2025-04-16)
PROC: 0DB68ZX Excision of Stomach, Via Natural or Artificial Opening Endoscopic, Diagnostic (ICD-10-PCS; 2025-04-16)
PROC: 0DB58ZX Excision of Esophagus, Via Natural or Artificial Opening Endoscopic, Diagnostic (ICD-10-PCS; 2025-04-16)
DX: K22.10 Ulcer of esophagus without bleeding (principal); R65.11 Systemic inflammatory response syndrome (SIRS) of non-infectious origin with acute organ dysfunction; K74.60 Unspecified cirrhosis of liver; D62 Acute posthemorrhagic anemia; N17.9 Acute kidney failure, unspecified; K29.90 Gastroduodenitis, unspecified, without bleeding; K44.9 Diaphragmatic hernia without obstruction or gangrene; Z53.29 Procedure and treatment not carried out because of patient's decision for other reasons; J45.909 Unspecified asthma, uncomplicated; K21.9 Gastro-esophageal reflux disease without esophagitis; I85.10 Secondary esophageal varices without bleeding; Z91.018 Allergy to other foods; Z95.1 Presence of aortocoronary bypass graft; Z80.1 Family history of malignant neoplasm of trachea, bronchus and lung; Z80.0 Family history of malignant neoplasm of digestive organs; Z83.3 Family history of diabetes mellitus
CPT/HCPCS: 36415; 36430; 43239; 71045; 74176; 80048; 80053; 82140; 84484; 85007; 85014; 85018; 85025; 85027; 85610; 85730; 86850; 86900; 86901; 86920; 96374; 96375; G0378; J1100; J2250; J2405; J2704; J3490